=== PATIENT | female | born 1985 | race Hispanic/Latino ===

== ENCOUNTER 2018-04-02 09:45 | Emergency (ER) | payer OTHER, SELFPAY ==
[2018-04-02 09:45] VITALS: BP 92/50; PULSE 60; RESP 29; O2SAT 98
--- NOTE | 2018-04-02 09:49 | DI.RAD.S_ITS ---
PROCEDURE: XR CHEST 2V INDICATIONS: Shortness of breath TECHNIQUE: 2 views of the chest were acquired. COMPARISON: None. FINDINGS: Surgical changes and devices: None. Lungs and pleura: No pleural effusions or pneumothorax. Lungs are clear. Mediastinum: Mediastinal contours are normal. Heart size is normal. Bones and chest wall: No suspicious bony abnormalities. Soft tissues appear unremarkable. IMPRESSION: No acute disease. Dictated by: Wilfrido Kirkland M.D. on 04/02/2018 at 10:33 Approved by: Wilfrido Kirkland M.D. on 04/02/2018 at 10:34
[2018-04-02 09:54] VITALS: BP 117/81; PULSE 84; RESP 13; TEMP 36.4; O2SAT 97
[2018-04-02 10:00] VITALS: BP 90/55; PULSE 60; RESP 24; O2SAT 98
--- NOTE | 2018-04-02 10:05 | ED.SOB ---
HPI - SOB/Dyspnea General Chief Complaint: Shortness of Breath/Dyspnea Stated Complaint: HARD TIME BREATHING FOR 1 DAY Time Seen by Provider: 04/02/18 09:49 Related Data Previous Rx's Medication Instructions Recorded fluticasone [Flovent HFA] 1 inhalation INHALATION BID #10.6 04/02/18 gram nicotine 1 patch TRANSDERMAL DAILY #7 each 04/02/18 Allergies Allergy/AdvReac Type Severity Reaction Status Date / Time ibuprofen [From Motrin] AdvReac Verified 04/02/18 10:00 Exam Initial Vital Signs Initial Vital Signs: Vital Signs Temperature 97.6 F 04/02/18 09:54 Pulse Rate 84 04/02/18 09:54 Respiratory Rate 13 04/02/18 09:54 Blood Pressure 117/81 H 04/02/18 09:54 Pulse Oximetry 97 04/02/18 09:54 Course Orders Ordered: ED Orders 04/02/18 09:49 XR chest 2V Stat Discontinued Medications Al Hydrox/Mg Hydrox/Simethicone 20 ml/ Lidocaine HCl 15 ml 0 ml PO NOW ONE Stop: 04/02/18 10:21 Last Admin: 04/02/18 10:36 Dose: 30 ml Ondansetron HCl (Zofran Odt) 4 mg PO NOW ONE Stop: 04/02/18 11:20 Last Admin: 04/02/18 11:21 Dose: 4 mg Vital Signs - 8 hr 04/02/18 09:54 04/02/18 10:39 04/02/18 11:50 Temperature 97.6 F 97.6 F Pulse Rate 84 84 83 Respiratory Rate 13 13 16 Blood Pressure 117/81 H 117/81 H Blood Pressure [Right Arm] 102/76 Pulse Oximetry 97 97 98 MDM - SOB/Dyspnea Imaging Data Chest x-ray: Radiologist's impression: PROCEDURE: XR CHEST 2V INDICATIONS: Shortness of breath TECHNIQUE: 2 views of the chest were acquired. COMPARISON: None. FINDINGS: Surgical changes and devices: None. Lungs and pleura: No pleural effusions or pneumothorax. Lungs are clear. Mediastinum: Mediastinal contours are normal. Heart size is normal. Bones and chest wall: No suspicious bony abnormalities. Soft tissues appear unremarkable. IMPRESSION: No acute disease. Dictated by: Wilfrido Kirkland M.D. on 04/02/2018 at 10:33 Discharge Plan Departure Patient Disposition: Home, Self-Care Clinical Impression: Reflux esophagitis Instructions: DI for Gastroesophageal Reflux Disease (GERD) Activity Restrictions/Additional Instructions: Recommend that you take dafw-vnp-[id number] reflux medicines such as Maalox for the next couple days. Call your primary care doctor to follow up on your nicotine patches and also the symptoms that brought you in to the department today. Return to the emergency department for any new or worsening symptoms Prescriptions: New fluticasone [Flovent HFA] 44 mcg/actuation HFA aerosol inhaler 1 inhalation INHALATION BID Qty: 10.6 RF: 0 nicotine 21 mg/24 hr patch 24 hour 1 patch Transdermal DAILY Qty: 7 RF: 0
--- NOTE | 2018-04-02 10:33 | PC.NURSE ---
Pt states she has pain in her throat that feels like a burning pain. She c/o shortness of breath, which is alleviated some by laying flat. Has hx of asthma and acid reflux. pain is 6/10. She c/o of nausea and vomiting that started last night.
[2018-04-02] MEDS: MAG HYDROX/ALUMINUM/SIMETH SUS 20 ML, LIDOCAINE VISCOUS 2% 15 ML PO (10:36)
[2018-04-02 10:39] VITALS: BP 117/81; PULSE 84; RESP 13; TEMP 36.4; O2SAT 97; BMI 19.0
[2018-04-02] MEDS: ONDANSETRON 4 MG ODT PO (11:21)
[2018-04-02 11:30] VITALS: BP 90/49; PULSE 60; RESP 21; O2SAT 95
[2018-04-02 11:50] VITALS: BP 102/76; PULSE 83; RESP 16; O2SAT 98
[2018-04-02 12:24] LABS: Bacteria Urine Moderate (10-30); Culture Indicated Urine Cult Not Indicated; Mucus Urine 3+ (Negative); RBC Urine 1-5/HPF (0-5/HPF); Squamous Epithelial Cell Urine 5-10 /HPF; WBC Urine 1-5/HPF (0-5/HPF)
== END 2018-04-02 12:21 | disposition home or self-care (01) ==
PROVIDERS: Emergency Provider Emergency Medicine
DX: K21.0 Gastro-esophageal reflux disease with esophagitis (principal)
CPT/HCPCS: 71046; 81003; 81015; 81025; 93005; 99283; 99285

== ENCOUNTER 2019-01-03 15:25 | Emergency (ER) | payer OTHER, MEDICAID, SELFPAY ==
[2019-01-03 15:27] VITALS: BP 113/81; PULSE 99; RESP 20; TEMP 36.8; O2SAT 99
--- NOTE | 2019-01-03 16:22 | ED.DIZZY ---
HPI - Dizziness <Anastasiia Mathew PA-C - Last Filed: 01/03/19 21:36> General Chief Complaint: Syncope Stated Complaint: VOMITING Time Seen by Provider: 01/03/19 16:00 Source: patient Mode of arrival: ambulatory Limitations: no limitations History of Present Illness HPI Narrative: This 33-year-old female comes in due to syncopal episode earlier. She states that she was feeling nauseated and vomited twice this morning, then had been getting some things off of shelves and feeling a spinning sensation with head movements prior to this happening. She felt a spinning and nausea and warm feeling like she would pass out, so sat down on her bed and states that she was out maybe for about 15 seconds, then her daughter was calling her. She states she felt some palpitations just prior when she had the spinning sensation, otherwise has not had any chest pain, palpitations or dizziness. She states that she could be , as her last regular period was over about the 18 of November, and then she had some spotting around December 19. She has a Mirena IUD in place however. She did have similar spotting with previous pregnancies along with similar nausea. She also has a history of pots syndrome, states that occasionally needs IV fluids, thinks it has been about 6 months since she has needed an IV but did more frequently when she was previously. She states she has not had any asthma exacerbation recently, no recent illness, upper respiratory symptoms, ear or sinus symptoms. She has not had fever. She states she has maybe had a little bit of mild abdominal pain, no urinary symptoms. she denies any new pain or swelling in her extremities. she denies any other new complaints on systems review, feeling better now but does feel like she needs fluids. States that she did have anemia with Ava as well as low potassium Related Data Previous Rx's Medication Instructions Recorded fluticasone propionate [Flovent 1 inhalation INHALATION BID #10.6 04/02/18 HFA] gram ondansetron 4 mg PO Q8H #10 tab 01/03/19 Allergies Allergy/AdvReac Type Severity Reaction Status Date / Time ibuprofen [From Motrin] AdvReac Verified 04/02/18 10:00 Review of Systems <Anastasiia Mathew PA-C - Last Filed: 01/03/19 21:36> Review of Systems ROS Unobtainable: All systems reviewed & are unremarkable except as noted in HPI and below PFSH <Anastasiia Mathew PA-C - Last Filed: 01/03/19 21:36> Medical History (Updated 01/03/19 @ 18:58 by Anastasiia Mathew PA-C) Asthma (Chronic) POTS (postural orthostatic tachycardia syndrome) (Chronic) Surgical History (Updated 01/03/19 @ 16:50 by Anastasiia Mathew PA-C) Status post appendectomy (Resolved) Status post cholecystectomy (Resolved) Social History (Updated 01/03/19 @ 16:50 by Anastasiia Mathew PA-C) Smoking Status: Former smoker Social History (Updated 01/03/19 @ 16:50 by Anastasiia Mathew PA-C) Smoking Status: Former smoker Exam <Anastasiia Mathew PA-C - Last Filed: 01/03/19 21:36> Narrative Exam Narrative: GENERAL APPEARANCE: Patient sitting comfortably, in no distress. HEENT: PERRL, EOMI, left TM intact with normal light reflex, right is occluded by cerumen, normal oropharynx NECK: Supple, no masses LUNGS: Clear to auscultation bilaterally. HEART: Rate and rhythm regular, normal S1 and S2, no S3 or S4. ABDOMEN: Soft, minimal generalized tenderness without guarding or rebound, nondistended, bowel sounds present x 4 quadrants, no masses palpable EXTREMITIES: No edema, no calf tenderness NEUROLOGIC: Alert and oriented, normal speech and coordination, able to reproduce symptoms somewhat with Hallpike maneuver NEUROLOGIC: Alert and oriented with normal speech and coordination Initial Vital Signs Initial Vital Signs: Vital Signs Temperature 98.2 F 01/03/19 15:27 Pulse Rate 99 H 01/03/19 15:27 Respiratory Rate 20 01/03/19 15:27 Blood Pressure 113/81 01/03/19 15:27 Pulse Oximetry 99 01/03/19 15:27 <Madiha Hurtado DO - Last Filed: 01/06/19 20:45> Initial Vital Signs Initial Vital Signs: Vital Signs Temperature 98.2 F 01/03/19 15:27 Pulse Rate 99 H 01/03/19 15:27 Respiratory Rate 20 01/03/19 15:27 Blood Pressure 113/81 01/03/19 15:27 Pulse Oximetry 99 01/03/19 15:27 Course <Anastasiia Mathew PA-C - Last Filed: 01/03/19 21:36> Additional Information: Patient is feeling well after fluids and Zofran, no difficulty tolerating position changes. She feels this is typical nausea of her exacerbated by pots syndrome, no new or atypical sx today Orders Ordered: Discontinued Medications Sodium Chloride (Normal Saline 0.9%) 1,000 mls @ 1,000 mls/hr IV BOLUS ONE Stop: 01/03/19 17:37 Last Infusion: 01/03/19 18:34 Dose: 0 mls/hr Infusion: 01/03/19 17:39 Dose: 1,000 mls/hr Infusion: 01/03/19 17:24 Dose: 0 mls/hr Admin: 01/03/19 16:49 Dose: 1,000 mls/hr Ondansetron HCl (Zofran) 4 mg IV NOW ONE Stop: 01/03/19 16:39 Last Admin: 01/03/19 16:49 Dose: 4 mg Vital Signs - 8 hr 01/03/19 15:27 01/03/19 18:33 Temperature 98.2 F Pulse Rate 99 H 98 H Respiratory Rate 20 17 Blood Pressure 113/81 Blood Pressure [Right Arm] 123/80 Pulse Oximetry 99 95 <Madiha Hurtado DO - Last Filed: 01/06/19 20:45> Orders Ordered: Discontinued Medications Sodium Chloride (Normal Saline 0.9%) 1,000 mls @ 1,000 mls/hr IV BOLUS ONE Stop: 01/03/19 17:37 Last Infusion: 01/03/19 18:34 Dose: 0 mls/hr Infusion: 01/03/19 17:39 Dose: 1,000 mls/hr Infusion: 01/03/19 17:24 Dose: 0 mls/hr Admin: 01/03/19 16:49 Dose: 1,000 mls/hr Ondansetron HCl (Zofran) 4 mg IV NOW ONE Stop: 01/03/19 16:39 Last Admin: 01/03/19 16:49 Dose: 4 mg Vital Signs - 8 hr 01/03/19 15:27 01/03/19 18:33 Temperature 98.2 F Pulse Rate 99 H 98 H Respiratory Rate 20 17 Blood Pressure 113/81 Blood Pressure [Right Arm] 123/80 Pulse Oximetry 99 95 MDM - Dizziness <Anastasiia Mathew PA-C - Last Filed: 01/03/19 21:36> Lab Data Attestation: I reviewed the patient's lab results. Result diagrams: 01/03/19 16:45 01/03/19 16:45 Lab Results 01/03/19 01/03/19 Range/Units 16:45 16:45 WBC 8.3 (4.5-11.0) X10^3/uL RBC 4.91 (4.0-5.2) X10^6/uL Hgb 15.3 (12.0-16.0) g/dL Hct 43.7 (36-46) % MCV 89.0 (80-100) fL MCH 31.1 (26-34) PG MCHC 35.0 (30-36) % RDW 12.3 (11.6-14.8) % Plt Count 233 (150-400) X10^3/uL Neut % (Auto) 64.0 (50-75) % Lymph % (Auto) 27.6 (25-40) % [place] % (Auto) 5.8 (3-14) % Eos % (Auto) 1.8 L (2-4) % Baso % (Auto) 0.8 (0-2) % Neut # (Auto) 5300 (0555-7523) /uL Lymph # (Auto) 2300 (4860-5807) /uL [place] # (Auto) 500 (0-900) /uL Eos # (Auto) 100 (0-450) /uL Baso # (Auto) 100 (0-100) /uL Sodium 136 L (137-145) mmol/L Potassium 4.2 (3.4-5.1) mmol/L Chloride 104 (98-107) mmol/L Carbon Dioxide 21 L (22-32) mmol/L BUN 9 (7-17) mg/dL Creatinine 0.50 L (0.52-1.04) mg/dL Estimated GFR > 60.0 (>60) mL/min BUN/Creatinine Ratio 18.0 (6-22) Glucose 108 H (70-100) mg/dL Calcium 9.3 (8.4-10.2) mg/dL Magnesium 2.0 (1.6-2.3) mg/dL Total Bilirubin 1.1 (0.2-1.3) mg/dL AST 34 (14-36) IU/L ALT 43 (9-52) IU/L Alkaline Phosphatase 43 (38-126) U/L Total Protein 7.6 (6.3-8.2) g/dL Albumin 4.8 (3.5-5.0) g/dL Globulin 2.8 (1.7-4.1) g/dL Albumin/Globulin Ratio 1.7 (1.0-2.8) HCG, Quant 35313 mIU/mL Point of Care Testing Test Results Positive Imaging Data US : Radiologist's impression: 23 Anastasiia Mathew PA-C Find Patient Imaging Marcelina Bella 33 F 1985 ACTIVITY DATE EXAM STATUS AUTHOR 01/03/19 16:38 Signed Laz Bruno ORDER STATUS ORDER START ORDER DETAIL US OB limited Cancelled 01/03/19 16:[address] [address] Ultrasound Report Signed Patient: Marcelina Bella CMR#: [id number] : 1985Acct:[id number] Age/Sex: te of Service: 01/03/19 Loc: ED Accession Number: [id number] Procedure: US OB <= 14 weeks fetus Ordering Provider: Anastasiia Mathew P.A-C PROCEDURE: US OB <= 14 WEEKS FETUS INDICATIONS: POSITIVE TEST, SYNCOPE, INTRAUTERINE DEVICE PLACED OUTSIDE/PRIOR DATING DATA: Last menstrual period (LMP): Unknown. LMP-based estimated date of delivery (RADHA): Cannot be calculated. First dating scan (date and location): [facility], 01/03/19. Estimated date of delivery (RADHA) from first dating scan: 08/31/19. TECHNIQUE: Real-time scanning was performed of the fetus and maternal pelvic organs, with image documentation. Endovaginal scanning was also performed to better visualize the fetus and maternal ovaries. COMPARISON: None. FINDINGS: Embryo: There is an intrauterine gestational sac with a mean gestational sac diameter 1.6 cm, for a calculated gestational age of 6 weeks 0 days. A yolk sac is identified, and measures 4 mm in diameter. [place]-rump length/ pole length measures 0.3 cm for a calculated gestational age of 5 weeks 5 days. No heart tones can be measured, which may be normal at this stage of early . Measurement variability in dating: +/- 4 weeks by LMP, +/- 7 days by mean sac diameter (use before 6 weeks gestation if crown-rump length not able to be measured), +/- 5 days by crown-rump length (up to 8 weeks 6 days gestation), +/- 7 days by crown-rump length (up to 13 weeks 6 days gestation). Maternal organs: Limited images through the kidneys demonstrate no hydronephrosis. Right ovary measures 2.7 x 1.7 x 1.1 cm left ovary measures 4.0 x 2.9 x 2.7 cm. There is a 2.6 x 2.3 x 2.1 cm probable corpus luteum cyst in the left ovary with peripheral vascularity on Doppler ultrasound. The uterus measures 6.1 x 9.1 x 5.4 cm. No intrauterine device can be convincingly identified on this exam. IMPRESSION: 1. Intrauterine gestation with calculated gestational age of 5 weeks 5 days. No heart tones are identified on this exam, but this may be normal at this early stage of . Recommend clinical followup with serial beta-hCG levels and followup pelvic ultrasounds. 2. Patient reports a history of prior intrauterine device placement, but no intrauterine device can be convincingly identified on this exam by ultrasound. Recommend clinical correlation for further evaluation and management. Dictated by: Laz Bruno M.D. on 01/03/2019 at 17:50 Approved by: Laz Bruno M.D. on 01/03/2019 at 18:01 ECG Data Attestation: I personally reviewed and interpreted this ECG as follows: (Normal sinus rhythm with rate 88, normal axis) <Madiha Hurtado, DO - Last Filed: 01/06/19 20:45> Lab Data Lab Results 01/03/19 01/03/19 Range/Units 16:45 16:45 WBC 8.3 (4.5-11.0) X10^3/uL RBC 4.91 (4.0-5.2) X10^6/uL Hgb 15.3 (12.0-16.0) g/dL Hct 43.7 (36-46) % MCV 89.0 (80-100) fL MCH 31.1 (26-34) PG MCHC 35.0 (30-36) % RDW 12.3 (11.6-14.8) % Plt Count 233 (150-400) X10^3/uL Neut % (Auto) 64.0 (50-75) % Lymph % (Auto) 27.6 (25-40) % [place] % (Auto) 5.8 (3-14) % Eos % (Auto) 1.8 L (2-4) % Baso % (Auto) 0.8 (0-2) % Neut # (Auto) 5300 (1129-1160) /uL Lymph # (Auto) 2300 (5372-2425) /uL [place] # (Auto) 500 (0-900) /uL Eos # (Auto) 100 (0-450) /uL Baso # (Auto) 100 (0-100) /uL Sodium 136 L (137-145) mmol/L Potassium 4.2 (3.4-5.1) mmol/L Chloride 104 (98-107) mmol/L Carbon Dioxide 21 L (22-32) mmol/L BUN 9 (7-17) mg/dL Creatinine 0.50 L (0.52-1.04) mg/dL Estimated GFR > 60.0 (>60) mL/min BUN/Creatinine Ratio 18.0 (6-22) Glucose 108 H (70-100) mg/dL Calcium 9.3 (8.4-10.2) mg/dL Magnesium 2.0 (1.6-2.3) mg/dL Total Bilirubin 1.1 (0.2-1.3) mg/dL AST 34 (14-36) IU/L ALT 43 (9-52) IU/L Alkaline Phosphatase 43 (38-126) U/L Total Protein 7.6 (6.3-8.2) g/dL Albumin 4.8 (3.5-5.0) g/dL Globulin 2.8 (1.7-4.1) g/dL Albumin/Globulin Ratio 1.7 (1.0-2.8) HCG, Quant 59337 mIU/mL Point of Care Testing Test Results Positive Discharge Plan Departure Patient Disposition: Home Clinical Impression: Syncope due to orthostatic hypotension, Vomiting during Discharge Date/Time: 01/03/19 19:11 Interventions: ED Discharge Assessment Last Done: 01/03/19 19:03 Instructions: DI for Syncope in Adults (Fainting), DI for Syncope in Children (Fainting) Activity Restrictions/Additional Instructions: Please garbage pick up worker the Zofran tomorrow morning to help with your nausea and vomiting. I think your dizziness and passing out were due to your pots syndrome along with the nausea and vomiting from . Your ultrasound report and blood work looked like you are about 5-1/2 weeks , that is consistent with your last ?normal? menses. Your IUD was not visible on the ultrasound today. Sometimes they do come out. Please set up a follow-up with your PCP in the next few days as well as set up with OBGYN. Please return to the ED if you are feeling acutely worse again or have any new symptoms such as chest pain. please drink plenty of clear fluids and start your vitamins. Prescriptions: New ondansetron 4 mg tablet,disintegrating 4 mg PO Q8H Qty: 10 RF: 0 No Action fluticasone propionate [Flovent HFA] 44 mcg/actuation HFA aerosol inhaler 1 inhalation INHALATION BID Qty: 10.6 RF: 0 Referrals: [facility] [Other] <Madiha Hurtado DO - Last Filed: 01/06/19 20:45> Cosign ED Attending Cosignature Attestation: I was immediately available in the department for consultation. This documentation has been reviewed and I agree with assessment and plan. Supervised by Madiha Hurtado DO
--- NOTE | 2019-01-03 16:38 | DI.US.S_ITS ---
PROCEDURE: US OB <= 14 WEEKS FETUS INDICATIONS: POSITIVE TEST, SYNCOPE, INTRAUTERINE DEVICE PLACED OUTSIDE/PRIOR DATING DATA: Last menstrual period (LMP): Unknown. LMP-based estimated date of delivery (RADHA): Cannot be calculated. First dating scan (date and location): [facility], 01/03/19. Estimated date of delivery (RADHA) from first dating scan: 08/31/19. TECHNIQUE: Real-time scanning was performed of the fetus and maternal pelvic organs, with image documentation. Endovaginal scanning was also performed to better visualize the fetus and maternal ovaries. COMPARISON: None. FINDINGS: Embryo: There is an intrauterine gestational sac with a mean gestational sac diameter 1.6 cm, for a calculated gestational age of 6 weeks 0 days. A yolk sac is identified, and measures 4 mm in diameter. [place]-rump length/ pole length measures 0.3 cm for a calculated gestational age of 5 weeks 5 days. No heart tones can be measured, which may be normal at this stage of early . Measurement variability in dating: +/- 4 weeks by LMP, +/- 7 days by mean sac diameter (use before 6 weeks gestation if crown-rump length not able to be measured), +/- 5 days by crown-rump length (up to 8 weeks 6 days gestation), +/- 7 days by crown-rump length (up to 13 weeks 6 days gestation). Maternal organs: Limited images through the kidneys demonstrate no hydronephrosis. Right ovary measures 2.7 x 1.7 x 1.1 cm left ovary measures 4.0 x 2.9 x 2.7 cm. There is a 2.6 x 2.3 x 2.1 cm probable corpus luteum cyst in the left ovary with peripheral vascularity on Doppler ultrasound. The uterus measures 6.1 x 9.1 x 5.4 cm. No intrauterine device can be convincingly identified on this exam. IMPRESSION: 1. Intrauterine gestation with calculated gestational age of 5 weeks 5 days. No heart tones are identified on this exam, but this may be normal at this early stage of . Recommend clinical followup with serial beta-hCG levels and followup pelvic ultrasounds. 2. Patient reports a history of prior intrauterine device placement, but no intrauterine device can be convincingly identified on this exam by ultrasound. Recommend clinical correlation for further evaluation and management. Dictated by: Laz Bruno M.D. on 01/03/2019 at 17:50 Approved by: Laz Bruno M.D. on 01/03/2019 at 18:01
[2019-01-03] MEDS: ONDANSETRON 4 MG/2 ML INJ IV (16:49)
[2019-01-03] MEDS: SODIUM CHLORIDE 0.9% 1,000 ML 1000 ML IV (16:49)
[2019-01-03 16:51] LABS: Add Manual Diff / Slide Review NO; Basophils Absolute Auto 100 /uL (0-100); Basophils Percent Auto 0.8 % (0-2); Eosinophils Absolute Auto 100 /uL (0-450); Eosinophils Percent Auto 1.8 % (2-4); Hematocrit 43.7 % (36-46); Hemoglobin 15.3 g/dL (12.0-16.0); Lymphocytes Absolute Auto 2300 /uL (1100-4500); Lymphocytes Percent Auto 27.6 % (25-40); Mean Corpuscular Hemoglobin 31.1 PG (26-34); Monocytes Absolute Auto 500 /uL (0-900); Monocytes Percent Auto 5.8 % (3-14); Neutrophils Absolute Auto 5300 /uL (1500-7000); Platelet Count 233 X10^3/uL (150-400); Red Blood Cell Count 4.91 X10^6/uL (4.0-5.2); Red Cell Distribution Width 12.3 % (11.6-14.8); White Blood Cell Count 8.3 X10^3/uL (4.5-11.0)
--- NOTE | 2019-01-03 16:52 | ED_ITS ---
HPI - Dizziness <Anastasiia Mathew PA-C - Last Filed: 01/03/19 21:36> General Chief Complaint: Syncope Stated Complaint: VOMITING Time Seen by Provider: 01/03/19 16:00 Source: patient Mode of arrival: ambulatory Limitations: no limitations History of Present Illness HPI Narrative: This 33-year-old female comes in due to syncopal episode earlier. She states that she was feeling nauseated and vomited twice this morning, then had been getting some things off of shelves and feeling a spinning sensation with head movements prior to this happening. She felt a spinning and nausea and warm feeling like she would pass out, so sat down on her bed and states that she was out maybe for about 15 seconds, then her daughter was calling her. She states she felt some palpitations just prior when she had the spinning sensation, otherwise has not had any chest pain, palpitations or dizziness. She states that she could be , as her last regular period was over about the 18 of November, and then she had some spotting around December 19. She has a Mirena IUD in place however. She did have similar spotting with previous pregnancies along with similar nausea. She also has a history of pots syndrome, states that occasionally needs IV fluids, thinks it has been about 6 months since she has needed an IV but did more frequently when she was previously. She states she has not had any asthma exacerbation recently, no recent illness, upper respiratory symptoms, ear or sinus symptoms. She has not had fever. She states she has maybe had a little bit of mild abdominal pain, no urinary symptoms. she denies any new pain or swelling in her extremities. she denies any other new complaints on systems review, feeling better now but does feel like she needs fluids. States that she did have anemia with Ava as well as low potassium Related Data Previous Rx's Medication Instructions Recorded fluticasone propionate [Flovent 1 inhalation INHALATION BID #10.6 04/02/18 HFA] gram ondansetron 4 mg PO Q8H #10 tab 01/03/19 Allergies Allergy/AdvReac Type Severity Reaction Status Date / Time ibuprofen [From Motrin] AdvReac Verified 04/02/18 10:00 Review of Systems <Anastasiia Mathew PA-C - Last Filed: 01/03/19 21:36> Review of Systems ROS Unobtainable: All systems reviewed & are unremarkable except as noted in HPI and below PFSH <nAastasiia Mathew PA-C - Last Filed: 01/03/19 21:36> Medical History (Updated 01/03/19 @ 18:58 by Anastasiia Mathew PA-C) Asthma (Chronic) POTS (postural orthostatic tachycardia syndrome) (Chronic) Surgical History (Updated 01/03/19 @ 16:50 by Anastasiia Mathew PA-C) Status post appendectomy (Resolved) Status post cholecystectomy (Resolved) Social History (Updated 01/03/19 @ 16:50 by Anastasiia Mathew PA-C) Smoking Status: Former smoker Social History (Updated 01/03/19 @ 16:50 by Anastasiia Mathew PA-C) Smoking Status: Former smoker Exam <Anastasiia Mathew PA-C - Last Filed: 01/03/19 21:36> Narrative Exam Narrative: GENERAL APPEARANCE: Patient sitting comfortably, in no distress. HEENT: PERRL, EOMI, left TM intact with normal light reflex, right is occluded by cerumen, normal oropharynx NECK: Supple, no masses LUNGS: Clear to auscultation bilaterally. HEART: Rate and rhythm regular, normal S1 and S2, no S3 or S4. ABDOMEN: Soft, minimal generalized tenderness without guarding or rebound, nondistended, bowel sounds present x 4 quadrants, no masses palpable EXTREMITIES: No edema, no calf tenderness NEUROLOGIC: Alert and oriented, normal speech and coordination, able to reproduce symptoms somewhat with Hallpike maneuver NEUROLOGIC: Alert and oriented with normal speech and coordination Initial Vital Signs Initial Vital Signs: Vital Signs Temperature 98.2 F 01/03/19 15:27 Pulse Rate 99 H 01/03/19 15:27 Respiratory Rate 20 01/03/19 15:27 Blood Pressure 113/81 01/03/19 15:27 Pulse Oximetry 99 01/03/19 15:27 <Madiha Hurtado DO - Last Filed: 01/06/19 20:45> Initial Vital Signs Initial Vital Signs: Vital Signs Temperature 98.2 F 01/03/19 15:27 Pulse Rate 99 H 01/03/19 15:27 Respiratory Rate 20 01/03/19 15:27 Blood Pressure 113/81 01/03/19 15:27 Pulse Oximetry 99 01/03/19 15:27 Course <Anastasiia Mathew PA-C - Last Filed: 01/03/19 21:36> Additional Information: Patient is feeling well after fluids and Zofran, no difficulty tolerating position changes. She feels this is typical nausea of her exacerbated by pots syndrome, no new or atypical sx today Orders Ordered: Discontinued Medications Sodium Chloride (Normal Saline 0.9%) 1,000 mls @ 1,000 mls/hr IV BOLUS ONE Stop: 01/03/19 17:37 Last Infusion: 01/03/19 18:34 Dose: 0 mls/hr Infusion: 01/03/19 17:39 Dose: 1,000 mls/hr Infusion: 01/03/19 17:24 Dose: 0 mls/hr Admin: 01/03/19 16:49 Dose: 1,000 mls/hr Ondansetron HCl (Zofran) 4 mg IV NOW ONE Stop: 01/03/19 16:39 Last Admin: 01/03/19 16:49 Dose: 4 mg Vital Signs - 8 hr 01/03/19 15:27 01/03/19 18:33 Temperature 98.2 F Pulse Rate 99 H 98 H Respiratory Rate 20 17 Blood Pressure 113/81 Blood Pressure [Right Arm] 123/80 Pulse Oximetry 99 95 <Madiha Hurtado DO - Last Filed: 01/06/19 20:45> Orders Ordered: Discontinued Medications Sodium Chloride (Normal Saline 0.9%) 1,000 mls @ 1,000 mls/hr IV BOLUS ONE Stop: 01/03/19 17:37 Last Infusion: 01/03/19 18:34 Dose: 0 mls/hr Infusion: 01/03/19 17:39 Dose: 1,000 mls/hr Infusion: 01/03/19 17:24 Dose: 0 mls/hr Admin: 01/03/19 16:49 Dose: 1,000 mls/hr Ondansetron HCl (Zofran) 4 mg IV NOW ONE Stop: 01/03/19 16:39 Last Admin: 01/03/19 16:49 Dose: 4 mg Vital Signs - 8 hr 01/03/19 15:27 01/03/19 18:33 Temperature 98.2 F Pulse Rate 99 H 98 H Respiratory Rate 20 17 Blood Pressure 113/81 Blood Pressure [Right Arm] 123/80 Pulse Oximetry 99 95 MDM - Dizziness <Anastasiia Mathew PA-C - Last Filed: 01/03/19 21:36> Lab Data Attestation: I reviewed the patient's lab results. Result diagrams: 01/03/19 16:45 01/03/19 16:45 Lab Results 01/03/19 01/03/19 Range/Units 16:45 16:45 WBC 8.3 (4.5-11.0) X10^3/uL RBC 4.91 (4.0-5.2) X10^6/uL Hgb 15.3 (12.0-16.0) g/dL Hct 43.7 (36-46) % MCV 89.0 (80-100) fL MCH 31.1 (26-34) PG MCHC 35.0 (30-36) % RDW 12.3 (11.6-14.8) % Plt Count 233 (150-400) X10^3/uL Neut % (Auto) 64.0 (50-75) % Lymph % (Auto) 27.6 (25-40) % [place] % (Auto) 5.8 (3-14) % Eos % (Auto) 1.8 L (2-4) % Baso % (Auto) 0.8 (0-2) % Neut # (Auto) 5300 (5355-3737) /uL Lymph # (Auto) 2300 (7776-5742) /uL [place] # (Auto) 500 (0-900) /uL Eos # (Auto) 100 (0-450) /uL Baso # (Auto) 100 (0-100) /uL Sodium 136 L (137-145) mmol/L Potassium 4.2 (3.4-5.1) mmol/L Chloride 104 (98-107) mmol/L Carbon Dioxide 21 L (22-32) mmol/L BUN 9 (7-17) mg/dL Creatinine 0.50 L (0.52-1.04) mg/dL Estimated GFR > 60.0 (>60) mL/min BUN/Creatinine Ratio 18.0 (6-22) Glucose 108 H (70-100) mg/dL Calcium 9.3 (8.4-10.2) mg/dL Magnesium 2.0 (1.6-2.3) mg/dL Total Bilirubin 1.1 (0.2-1.3) mg/dL AST 34 (14-36) IU/L ALT 43 (9-52) IU/L Alkaline Phosphatase 43 (38-126) U/L Total Protein 7.6 (6.3-8.2) g/dL Albumin 4.8 (3.5-5.0) g/dL Globulin 2.8 (1.7-4.1) g/dL Albumin/Globulin Ratio 1.7 (1.0-2.8) HCG, Quant 56966 mIU/mL Point of Care Testing Test Results Positive Imaging Data US : Radiologist's impression: 23 Anastasiia Mathew PA-C Find Patient Imaging Marcelina Bella 33 F 1985 ACTIVITY DATE EXAM STATUS AUTHOR 01/03/19 16:38 Signed Laz Bruno ORDER STATUS ORDER START ORDER DETAIL US OB limited Cancelled 01/03/19 16:[address] [address] Ultrasound Report Signed Patient: Marcelina Bella CMR#: [id number] : 1985Acct:[id number] Age/Sex: te of Service: 01/03/19 Loc: ED Accession Number: [id number] Procedure: US OB <= 14 weeks fetus Ordering Provider: Anastasiia Mathew P.A-C PROCEDURE: US OB <= 14 WEEKS FETUS INDICATIONS: POSITIVE TEST, SYNCOPE, INTRAUTERINE DEVICE PLACED OUTSIDE/PRIOR DATING DATA: Last menstrual period (LMP): Unknown. LMP-based estimated date of delivery (RADHA): Cannot be calculated. First dating scan (date and location): [facility], 01/03/19. Estimated date of delivery (RADHA) from first dating scan: 08/31/19. TECHNIQUE: Real-time scanning was performed of the fetus and maternal pelvic organs, with image documentation. Endovaginal scanning was also performed to better visualize the fetus and maternal ovaries. COMPARISON: None. FINDINGS: Embryo: There is an intrauterine gestational sac with a mean gestational sac diameter 1.6 cm, for a calculated gestational age of 6 weeks 0 days. A yolk sac is identif ied, and measures 4 mm in diameter. [place]-rump length/ pole length measures 0.3 cm for a calculated gestational age of 5 weeks 5 days. No heart tones can be measured, which may be normal at this stage of early . Measurement variability in dating: +/- 4 weeks by LMP, +/- 7 days by mean sac diameter (use before 6 weeks gestation if crown-rump length not able to be measured), +/- 5 days by crown-rump length (up to 8 weeks 6 days gestation), +/- 7 days by crown-rump length (up to 13 weeks 6 days gestation). Maternal organs: Limited images through the kidneys demonstrate no hydronephrosis. Right ovary measures 2.7 x 1.7 x 1.1 cm left ovary measures 4.0 x 2.9 x 2.7 cm. There is a 2.6 x 2.3 x 2.1 cm probable corpus luteum cyst in the left ovary with peripheral vascularity on Doppler ultrasound. The uterus measures 6.1 x 9.1 x 5.4 cm. No intrauterine device can be convincingly identified on this exam. IMPRESSION: 1. Intrauterine gestation with calculated gestational age of 5 weeks 5 days. No heart tones are identified on this exam, but this may be normal at this early stage of . Recommend clinical followup with serial beta-hCG levels and followup pelvic ultrasounds. 2. Patient reports a history of prior intrauterine device placement, but no intrauterine device can be convincingly identified on this exam by ultrasound. Recommend clinical correlation for further evaluation and management. Dictated by: Laz Bruno M.D. on 01/03/2019 at 17:50 Approved by: Laz Bruno M.D. on 01/03/2019 at 18:01 ECG Data Attestation: I personally reviewed and interpreted this ECG as follows: (Normal sinus rhythm with rate 88, normal axis) <Madiha Hurtado, DO - Last Filed: 01/06/19 20:45> Lab Data Lab Results 01/03/19 01/03/19 Range/Units 16:45 16:45 WBC 8.3 (4.5-11.0) X10^3/uL RBC 4.91 (4.0-5.2) X10^6/uL Hgb 15.3 (12.0-16.0) g/dL Hct 43.7 (36-46) % MCV 89.0 (80-100) fL MCH 31.1 (26-34) PG MCHC 35.0 (30-36) % RDW 12.3 (11.6-14.8) % Plt Count 233 (150-400) X10^3/uL Neut % (Auto) 64.0 (50-75) % Lymph % (Auto) 27.6 (25-40) % [place] % (Auto) 5.8 (3-14) % Eos % (Auto) 1.8 L (2-4) % Baso % (Auto) 0.8 (0-2) % Neut # (Auto) 5300 (8193-9832) /uL Lymph # (Auto) 2300 (2682-2647) /uL [place] # (Auto) 500 (0-900) /uL Eos # (Auto) 100 (0-450) /uL Baso # (Auto) 100 (0-100) /uL Sodium 136 L (137-145) mmol/L Potassium 4.2 (3.4-5.1) mmol/L Chloride 104 (98-107) mmol/L Carbon Dioxide 21 L (22-32) mmol/L BUN 9 (7-17) mg/dL Creatinine 0.50 L (0.52-1.04) mg/dL Estimated GFR > 60.0 (>60) mL/min BUN/Creatinine Ratio 18.0 (6-22) Glucose 108 H (70-100) mg/dL Calcium 9.3 (8.4-10.2) mg/dL Magnesium 2.0 (1.6-2.3) mg/dL Total Bilirubin 1.1 (0.2-1.3) mg/dL AST 34 (14-36) IU/L ALT 43 (9-52) IU/L Alkaline Phosphatase 43 (38-126) U/L Total Protein 7.6 (6.3-8.2) g/dL Albumin 4.8 (3.5-5.0) g/dL Globulin 2.8 (1.7-4.1) g/dL Albumin/Globulin Ratio 1.7 (1.0-2.8) HCG, Quant 26642 mIU/mL Point of Care Testing Test Results Positive Discharge Plan Departure Patient Disposition: Home Clinical Impression: Syncope due to orthostatic hypotension, Vomiting during Discharge Date/Time: 01/03/19 19:11 Interventions: ED Discharge Assessment Last Done: 01/03/19 19:03 Instructions: DI for Syncope in Adults (Fainting), DI for Syncope in Children (Fainting) Activity Restrictions/Additional Instructions: Please fruit picker the Zofran tomorrow morning to help with your nausea and vomiting. I think your dizziness and passing out were due to your pots syndrome along with the nausea and vomiting from . Your ultrasound report and blood work looked like you are about 5-1/2 weeks , that is consistent with your last ?normal? menses. Your IUD was not visible on the ultrasound today. Sometimes they do come out. Please set up a follow-up with your PCP in the next few days as well as set up with OBGYN. Please return to the ED if you are feeling acutely worse again or have any new symptoms such as chest pain. pl ease drink plenty of clear fluids and start your vitamins. Prescriptions: New ondansetron 4 mg tablet,disintegrating 4 mg PO Q8H Qty: 10 RF: 0 No Action fluticasone propionate [Flovent HFA] 44 mcg/actuation HFA aerosol inhaler 1 inhalation INHALATION BID Qty: 10.6 RF: 0 Referrals: [facility] [Other] <Madiha Hurtado DO - Last Filed: 01/06/19 20:45> Cosign ED Attending Cosignature Attestation: I was immediately available in the department for consultation. This docume ntation has been reviewed and I agree with assessment and plan. Supervised by Madiha Hurtado DO
[2019-01-03 17:09] LABS: Alanine Aminotransferase 43 IU/L (9-52); Albumin 4.8 g/dL (3.5-5.0); Albumin Globulin Ratio 1.7 (1.0-2.8); Alkaline Phosphatase 43 U/L (38-126); Aspartate Aminotransferase 34 IU/L (14-36); Bilirubin Total 1.1 mg/dL (0.2-1.3); Blood Urea Nitrogen 9 mg/dL (7-17); Calcium 9.3 mg/dL (8.4-10.2); Carbon Dioxide 21 mmol/L (22-32); Chloride 104 mmol/L (98-107); Estimated Glomerular Filt Rate > 60.0 mL/min (>60); Globulin 2.8 g/dL (1.7-4.1); Glucose 108 mg/dL (70-100); HEMOLYSIS 19 (0-50); Potassium 4.2 mmol/L (3.4-5.1); Sodium 136 mmol/L (137-145); Total Protein 7.6 g/dL (6.3-8.2)
[2019-01-03 17:52] LABS: HCG Quantitative /Beta subunit 29541 mIU/mL
[2019-01-03 18:33] VITALS: BP 123/80; PULSE 98; RESP 17; O2SAT 95
== END 2019-01-03 19:11 | disposition home or self-care (01) ==
PROVIDERS: Emergency Provider Internal Medicine
DX: O21.9 Vomiting of pregnancy, unspecified (principal); I95.1 Orthostatic hypotension; Z3A.01 Less than 8 weeks gestation of pregnancy
CPT/HCPCS: 36591; 76801; 76817; 80053; 81025; 83735; 84702; 85025; 93005; 93010; 96361; 96374; 99283; 99285; J2405

== ENCOUNTER 2019-01-14 15:32 | Emergency (ER) | payer OTHER, MEDICAID, SELFPAY ==
[2019-01-14 15:35] VITALS: BP 123/90; PULSE 72; RESP 17; TEMP 36.6; O2SAT 99; BMI 19.3
--- NOTE | 2019-01-14 15:39 | ED_ITS ---
HPI - General Chief complaint: Abdominal Pain Stated complaint: abdominal pain Time Seen by Provider: 01/14/19 15:36 Source: EMS Mode of arrival: EMS Limitations: no limitations History of Present Illness HPI Narrative: Patient is a 33-year-old female who is currently 7 or 8 weeks . States that she is having abdominal pain for last 2 or 3 hours no vaginal bleeding no nausea. She actually was 01/06/2019. That was for syncopal episodes. At that time she had an ultrasound which showed that she was 5 weeks and 5 days but no heart rate was identified. She has since followed up with [facility]. However she says that she is high risk due to the cervix problem. She has had 2 miscarriages in the past. She does have 2 healthy children. She also states that she has not had a bowel movement. MD Complaint: abdominal pain Pain Consistency: intermittent Patient : Yes Related Data Previous Rx's Medication Instructions Recorded fluticasone propionate [Flovent 1 inhalation INHALATION BID #10.6 04/02/18 HFA] gram Allergies Allergy/AdvReac Type Severity Reaction Status Date / Time ibuprofen [From Motrin] AdvReac Verified 04/02/18 10:00 Opioids - Morphine Analogues AdvReac Verified 01/14/19 15:55 Review of Systems Review of Systems ROS Unobtainable: All systems reviewed & are unremarkable except as noted in HPI and below Constitutional Denies chills, Denies fever(s), Denies lethargy and Denies weakness Eyes Denies change in vision, Denies eye discharge, Denies irritation and Denies loss of vision ENT Ears, Nose, Mouth, and Throat: Denies change in voice, Denies neck pain and Denies sore throat Cardiovascular Denies dyspnea and Denies dyspnea on exertion Respiratory Denies cough, Denies dyspnea, Denies dyspnea on exertion and Denies wheezing Gastrointestinal Gastrointestinal: Reports abdominal pain, Denies diarrhea and Denies nausea Genitourinary Reports as per HPI Musculoskeletal Denies neck pain Integumentary/Breasts Denies pruritus, Denies erythema, Denies rash and Denies wounds Neurologic Denies loss of vision and Denies weakness Allergic/Immunologic Denies wheezing PMFSH - Past Medical History Medical history: Reports no medical history Surgical history: Reports no surgical history Patient : Yes Exam Initial Vital Signs Initial Vital Signs: Vital Signs Temperature 97.8 F 01/14/19 15:35 Pulse Rate 72 01/14/19 15:35 Respiratory Rate 17 01/14/19 15:35 Blood Pressure 123/90 01/14/19 15:35 Pulse Oximetry 99 01/14/19 15:35 GENERAL: Well-appearing, well-nourished and in no acute distress. HEENT: Head atraumatic,EOMI, pupils reactive, face symmetric, moist mucous membranes CARDIOVASCULAR: Regular rate and rhythm without murmurs, rubs or gallops. RESPIRATORY: Breath sounds equal bilaterally, no wheezes rales or rhonchi. ABDOMEN: Soft, no right upper quadrant tenderness no flank pain no lower abdominal pain EXTREMITIES: Normal range of motion, no clubbing or edema. Neurovascularly intact NEUROLOGICAL: Alert and oriented x4.Normal gait and speech. Cranial nerves II through XII grossly intact. SKIN: Warm, dry, no laceration, no petechiae, no rashes or lesions. Course Orders Ordered: Discontinued Medications Sodium Chloride (Normal Saline 0.9%) 1,000 mls @ 1,000 mls/hr IV BOLUS ONE Stop: 01/14/19 16:45 Last Infusion: 01/14/19 17:32 Dose: 0 mls/hr Admin: 01/14/19 16:09 Dose: 1,000 mls/hr Vital Signs - 8 hr 01/14/19 15:35 01/14/19 18:06 Temperature 97.8 F Pulse Rate 72 95 H Respiratory Rate 17 16 Blood Pressure 123/90 Blood Pressure [Left Arm] 111/61 Pulse Oximetry 99 100 MDM - OB/Uterine Contractions Lab Data Attestation: I reviewed the patient's lab results. Result diagrams: 01/14/19 15:35 01/14/19 15:35 Lab Results 01/14/19 01/14/19 Range/Units 15:35 15:35 WBC 9.3 (4.5-11.0) X10^3/uL RBC 4.81 (4.0-5.2) X10^6/uL Hgb 15.1 (12.0-16.0) g/dL Hct 42.5 (36-46) % MCV 88.3 (80-100) fL MCH 31.4 (26-34) PG MCHC 35.5 (30-36) % RDW 12.5 (11.6-14.8) % Plt Count 242 (150-400) X10^3/uL Neut % (Auto) 68.1 (50-75) % Lymph % (Auto) 23.1 L (25-40) % [place] % (Auto) 6.9 (3-14) % Eos % (Auto) 1.2 L (2-4) % Baso % (Auto) 0.7 (0-2) % Neut # (Auto) 6300 (1367-8217) /uL Lymph # (Auto) 2100 (0517-9004) /uL [place] # (Auto) 600 (0-900) /uL Eos # (Auto) 100 (0-450) /uL Baso # (Auto) 100 (0-100) /uL Sodium 137 (137-145) mmol/L Potassium 3.7 (3.4-5.1) mmol/L Chloride 99 (98-107) mmol/L Carbon Dioxide 29 (22-32) mmol/L BUN 11 (7-17) mg/dL Creatinine 0.60 (0.52-1.04) mg/dL Estimated GFR > 60.0 (>60) mL/min BUN/Creatinine Ratio 18.3 (6-22) Glucose 94 (70-100) mg/dL Calcium 10.1 (8.4-10.2) mg/dL Total Bilirubin 1.0 (0.2-1.3) mg/dL AST 27 (14-36) IU/L ALT 27 (9-52) IU/L Alkaline Phosphatase 47 (38-126) U/L Total Protein 8.0 (6.3-8.2) g/dL Albumin 4.9 (3.5-5.0) g/dL Globulin 3.1 (1.7-4.1) g/dL Albumin/Globulin Ratio 1.6 (1.0-2.8) HCG, Quant 505463 mIU/mL Urine Dip Bedside Urine Glucose Negative Bedside Urine Bilirubin - Negative Bedside Urine Ketone - Negative Urine Specific [place] 1.015 Bedside Urine Occult Blood - Negative Bedside Urine pH 5.0 Bedside Urine Protein - Negative Bedside Urine Urobilinogen - Negative Bedside Urine Nitrite - Negative Bedside Urine Leukocytes - Negative Esterase Imaging Data OB <14 wks: Radiologist's impression: PROCEDURE: US OB <= 14 WEEKS FETUS INDICATIONS: PAIN OUTSIDE/PRIOR DATING DATA: Last menstrual period (LMP): Unknown. First dating scan (date and location): 01/03/19. Estimated date of delivery (RADHA) from first dating scan: 08/31/19. TECHNIQUE: Real-time scanning was performed of the fetus and maternal pelvic organs, with image documentation. Endovaginal scanning: Performed for better visualization of the fetus and maternal adnexal structures. COMPARISON: [facility], , OB <= 14 WEEKS FETUS, 01/03/2019, 16:59. FINDINGS: Embryo: There is a single intrauterine with a gestational sac, yolk sac, pole visualized. There is heart motion with a rate of 143 beats per minute. The crown-rump length measures approximately 1.1 cm corresponding to a gestational age of 7 weeks 2 days. There is a small hypoechoic region adjacent to the gestational sac suggestive of a small subchorionic hematoma. Measurement variability in dating: +/- 4 weeks by LMP, +/- 7 days by mean sac diameter (use before 6 weeks gestation if crown-rump length unable to be measured), +/- 5 days by crown-rump length (up to 8 weeks 6 days gestation), +/- 7 days by crown-rump length (up to 13 weeks 6 days gestation). Maternal organs: The right ovary was not visualized the left ovary measures approximately 3.7 x 1.8 x 2.7 cm with a corpus luteal cyst measuring up to 2.1 cm. There is patent arterial flow demonstrated within the left ovary. IMPRESSION: 1. Single living intrauterine demonstrated with calculated gestational age of 7 weeks 2 days corresponding to an estimated delivery date of 08/31/19. 2. Suspected small subchorionic hematoma. Dictated by: Yonathan Butler M.D. on 01/14/2019 at 18:55 MDM Narrative Medical decision making narrative: Patient overall is feeling a little bit better after IV fluids no sign of UTI no localization of pain. was more concerned about baby, HCG is increasing appropriately heart rate noted at 143. on ultrasound Discharge Plan Departure Patient Disposition: Home Clinical Impression: Abdominal pain affecting Discharge Date/Time: 01/14/19 18:55 Interventions: ED Discharge Assessment Last Done: 01/14/19 18:54 Instructions: DI for -- Discomforts and Remedies Activity Restrictions/Additional Instructions: *You have been diagnosed with abdominal pain with *What to do: At this time blood work and ultrasound reassuring. Recommend prune juice for constipation *Continue to take medications as directed vitamins once daily *Follow up with your primary care provider in 2-3 days *Return to ER if you should have increasing abdominal pain vaginal bleeding or any new, worsening or concerning symptoms Prescriptions: No Action fluticasone propionate [Flovent HFA] 44 mcg/actuation HFA aerosol inhaler 1 inhalation INHALATION BID Qty: 10.6 RF: 0
--- NOTE | 2019-01-14 15:47 | DI.US.S_ITS ---
PROCEDURE: US OB <= 14 WEEKS FETUS INDICATIONS: PAIN OUTSIDE/PRIOR DATING DATA: Last menstrual period (LMP): Unknown. First dating scan (date and location): 01/03/19. Estimated date of delivery (RADHA) from first dating scan: 08/31/19. TECHNIQUE: Real-time scanning was performed of the fetus and maternal pelvic organs, with image documentation. Endovaginal scanning: Performed for better visualization of the fetus and maternal adnexal structures. COMPARISON: [facility], , OB <= 14 WEEKS FETUS, 01/03/2019, 16:59. FINDINGS: Embryo: There is a single intrauterine with a gestational sac, yolk sac, pole visualized. There is heart motion with a rate of 143 beats per minute. The crown-rump length measures approximately 1.1 cm corresponding to a gestational age of 7 weeks 2 days. There is a small hypoechoic region adjacent to the gestational sac suggestive of a small subchorionic hematoma. Measurement variability in dating: +/- 4 weeks by LMP, +/- 7 days by mean sac diameter (use before 6 weeks gestation if crown-rump length unable to be measured), +/- 5 days by crown-rump length (up to 8 weeks 6 days gestation), +/- 7 days by crown-rump length (up to 13 weeks 6 days gestation). Maternal organs: The right ovary was not visualized the left ovary measures approximately 3.7 x 1.8 x 2.7 cm with a corpus luteal cyst measuring up to 2.1 cm. There is patent arterial flow demonstrated within the left ovary. IMPRESSION: 1. Single living intrauterine demonstrated with calculated gestational age of 7 weeks 2 days corresponding to an estimated delivery date of 08/31/19. 2. Suspected small subchorionic hematoma. Dictated by: Yonathan Butler M.D. on 01/14/2019 at 18:55 Approved by: Yonathan Butler M.D. on 01/14/2019 at 18:58
[2019-01-14 15:55] LABS: Add Manual Diff / Slide Review NO; Basophils Absolute Auto 100 /uL (0-100); Basophils Percent Auto 0.7 % (0-2); Eosinophils Absolute Auto 100 /uL (0-450); Eosinophils Percent Auto 1.2 % (2-4); Hematocrit 42.5 % (36-46); Hemoglobin 15.1 g/dL (12.0-16.0); Lymphocytes Absolute Auto 2100 /uL (1100-4500); Lymphocytes Percent Auto 23.1 % (25-40); Mean Corpuscular HGB Conc 35.5 % (30-36); Mean Corpuscular Hemoglobin 31.4 PG (26-34); Mean Corpuscular Volume 88.3 fL (80-100); Monocytes Absolute Auto 600 /uL (0-900); Monocytes Percent Auto 6.9 % (3-14); Neutrophils Absolute Auto 6300 /uL (1500-7000); Neutrophils Percent Auto 68.1 % (50-75); Platelet Count 242 X10^3/uL (150-400); Red Blood Cell Count 4.81 X10^6/uL (4.0-5.2); Red Cell Distribution Width 12.5 % (11.6-14.8); White Blood Cell Count 9.3 X10^3/uL (4.5-11.0)
[2019-01-14 16:01] LABS: Alanine Aminotransferase 27 IU/L (9-52); Albumin 4.9 g/dL (3.5-5.0); Albumin Globulin Ratio 1.6 (1.0-2.8); Alkaline Phosphatase 47 U/L (38-126); Aspartate Aminotransferase 27 IU/L (14-36); BUN Creatinine Ratio 18.3 (6-22); Blood Urea Nitrogen 11 mg/dL (7-17); Calcium 10.1 mg/dL (8.4-10.2); Carbon Dioxide 29 mmol/L (22-32); Chloride 99 mmol/L (98-107); Estimated Glomerular Filt Rate > 60.0 mL/min (>60); Globulin 3.1 g/dL (1.7-4.1); Glucose 94 mg/dL (70-100); HEMOLYSIS < 15 (0-50); Potassium 3.7 mmol/L (3.4-5.1); Sodium 137 mmol/L (137-145)
[2019-01-14] MEDS: SODIUM CHLORIDE 0.9% 1,000 ML 1000 ML IV (16:09)
[2019-01-14 16:42] LABS: HCG Quantitative /Beta subunit 116790 mIU/mL
[2019-01-14 18:06] VITALS: BP 111/61; PULSE 95; RESP 16; O2SAT 100
[2019-01-14 18:54] VITALS: BP 114/73; PULSE 99; RESP 18; O2SAT 99
== END 2019-01-14 18:55 | disposition home or self-care (01) ==
PROVIDERS: Emergency Provider Emergency Medicine
DX: O26.891 Other specified pregnancy related conditions, first trimester (principal); R10.9 Unspecified abdominal pain; Z3A.01 Less than 8 weeks gestation of pregnancy
CPT/HCPCS: 36415; 76801; 76817; 80053; 81003; 84702; 85025; 96360; 99283; 99284

== ENCOUNTER 2019-02-02 12:26 | Emergency (ER) | payer OTHER, MEDICAID, SELFPAY ==
--- NOTE | 2019-02-02 12:42 | ED.HA ---
HPI - Headache <Anastasiia Mathew PA-C - Last Filed: 02/02/19 17:12> General Chief Complaint: Abdominal Pain Stated Complaint: 10 weeks ,headache and belly pain Time Seen by Provider: 02/02/19 13:06 Source: patient Mode of arrival: ambulatory Limitations: no limitations History of Present Illness HPI Narrative: This 33-year-old female who is 10 weeks comes to ED secondary to headache which she has had for the last 5 or 6 days, states this is across the frontal area and also in the back of her head where her neck feels tight. She states that she has tried Tylenol a couple of times which did not help. She has been going about her usual activities, however today she has been feeling nauseated and vomited twice. She states that she had been having constipation more than usual and was drinking prune juice, but had not had a bowel movement until yesterday, and she had to strain, very hard stools with some blood. She states that she has some constant pain in the left upper quadrant and flank area that started after she was straining to stool yesterday. she denies any exacerbating or alleviating features. She denies any blood with bowel movements aside from yesterday. She denies any urinary symptoms or hematuria. She states that she had a fever yesterday, she thinks 101. She denies any fever, chills, sweats today. She denies any earache, cough, wheeze, chest pain or dyspnea. She denies any new pain or swelling in her extremities or other new complaints on systems review today. She notes that she did have a history of bleeding hemorrhoids with her last . She states that she has a history of some type of intestinal ulcer, denies gastric ulcer Related Data Previous Rx's Medication Instructions Recorded fluticasone propionate [Flovent 1 inhalation INHALATION BID #10.6 04/02/18 HFA] gram ondansetron 4 mg PO DAILY #7 tab 02/02/19 Allergies Allergy/AdvReac Type Severity Reaction Status Date / Time ibuprofen [From Motrin] AdvReac Verified 04/02/18 10:00 Opioids - Morphine Analogues AdvReac Verified 01/14/19 15:55 Review of Systems <Anastasiia Mathew PA-C - Last Filed: 02/02/19 17:12> Review of Systems ROS Unobtainable: All systems reviewed & are unremarkable except as noted in HPI and below PFSH <Anastasiia Mathew PA-C - Last Filed: 02/02/19 17:12> Medical History (Updated 02/02/19 @ 16:49 by Anastasiia Mathew PA-C) Asthma (Chronic) H/O ulcer disease (Chronic) POTS (postural orthostatic tachycardia syndrome) (Chronic) Surgical History Status post appendectomy (Resolved) Status post cholecystectomy (Resolved) Social History Smoking Status: Former smoker Social History Smoking Status: Former smoker Exam <Anastasiia Mathew PA-C - Last Filed: 02/02/19 17:12> Narrative Exam Narrative: GENERAL APPEARANCE: Patient sitting comfortably, in no distress. HEENT: PERRL, EOMI, conjunctiva pink, no scleral icterus NECK: Supple LUNGS: Clear to auscultation bilaterally. HEART: Rate and rhythm regular, normal S1 and S2, no S3 or S4. ABDOMEN: Soft, nondistended, bowel sounds present x 4 quadrants, no masses palpable, no hepatosplenomegaly. Mild left upper quadrant and CVA tenderness to palpation, no rebound or guarding, no tenderness elsewhere EXTREMITIES: No edema, no calf tenderness DERMATOLOGIC: No jaundice or exanthem NEUROLOGIC: Alert and oriented with normal speech and coordination RECTAL: No external lesions or masses, no palpable internal masses, small amount of brown stool in vault, guaiac negative Initial Vital Signs Initial Vital Signs: Vital Signs Temperature 99.0 F 02/02/19 12:50 Pulse Rate 112 H 02/02/19 12:50 Respiratory Rate 16 02/02/19 12:50 Blood Pressure 123/75 02/02/19 12:50 Pulse Oximetry 100 02/02/19 12:50 <Lashae Garsia DO - Last Filed: 02/03/19 08:27> Initial Vital Signs Initial Vital Signs: Vital Signs Temperature 99.0 F 02/02/19 12:50 Pulse Rate 112 H 02/02/19 12:50 Respiratory Rate 16 02/02/19 12:50 Blood Pressure 123/75 02/02/19 12:50 Pulse Oximetry 100 02/02/19 12:50 Course <Anastasiia Mathew PA-C - Last Filed: 02/02/19 17:12> Additional Information: Patient reports feeling significantly improved after fluids and medications. She is sitting comfortably, texting on her cell phone, walking normally. Likely mild dehydration given her history of pots syndrome and vomiting. Reviewed lab and imaging study findings, and she already has follow-up scheduled at her OB/primary care clinic on Wednesday. She agreed to return if any acutely worsening symptoms again in the interim Orders Ordered: Discontinued Medications Acetaminophen (Tylenol) 650 mg PO NOW ONE Stop: 02/02/19 13:20 Last Admin: 02/02/19 13:55 Dose: 650 mg Sodium Chloride (Normal Saline 0.9%) 500 mls @ 1,000 mls/hr IV BOLUS PRN PRN Reason: Fluid replacement Last Infusion: 02/02/19 14:42 Dose: 0 mls/hr Admin: 02/02/19 13:55 Dose: 1,000 mls/hr Sodium Chloride (Normal Saline 0.9%) 1,000 mls @ 1,000 mls/hr IV BOLUS ONE Stop: 02/02/19 14:54 Last Infusion: 02/02/19 15:53 Dose: 0 mls/hr Admin: 02/02/19 14:59 Dose: 1,000 mls/hr Ondansetron HCl (Zofran) 4 mg IV NOW ONE Stop: 02/02/19 13:19 Last Admin: 02/02/19 13:56 Dose: 4 mg Vital Signs - 8 hr 02/02/19 12:50 02/02/19 15:22 02/02/19 17:02 Temperature 99.0 F Pulse Rate 112 H 86 101 H Respiratory Rate 16 16 15 Blood Pressure 123/75 108/64 Blood Pressure [Left Arm] 106/67 Pulse Oximetry 100 99 98 <Lashae Garsia DO - Last Filed: 02/03/19 08:27> Orders Ordered: Discontinued Medications Acetaminophen (Tylenol) 650 mg PO NOW ONE Stop: 02/02/19 13:20 Last Admin: 02/02/19 13:55 Dose: 650 mg Sodium Chloride (Normal Saline 0.9%) 500 mls @ 1,000 mls/hr IV BOLUS PRN PRN Reason: Fluid replacement Last Infusion: 02/02/19 14:42 Dose: 0 mls/hr Admin: 02/02/19 13:55 Dose: 1,000 mls/hr Sodium Chloride (Normal Saline 0.9%) 1,000 mls @ 1,000 mls/hr IV BOLUS ONE Stop: 02/02/19 14:54 Last Infusion: 02/02/19 15:53 Dose: 0 mls/hr Admin: 02/02/19 14:59 Dose: 1,000 mls/hr Ondansetron HCl (Zofran) 4 mg IV NOW ONE Stop: 02/02/19 13:19 Last Admin: 02/02/19 13:56 Dose: 4 mg Vital Signs - 8 hr 02/02/19 12:50 02/02/19 15:22 02/02/19 17:02 Temperature 99.0 F Pulse Rate 112 H 86 101 H Respiratory Rate 16 16 15 Blood Pressure 123/75 108/64 Blood Pressure [Left Arm] 106/67 Pulse Oximetry 100 99 98 MDM - Headache <Anastasiia Mathew PA-C - Last Filed: 02/02/19 17:12> Lab Data Attestation: I reviewed the patient's lab results. Result diagrams: 02/02/19 13:30 02/02/19 13:30 Lab Results 02/02/19 02/02/19 Range/Units 13:30 13:30 WBC 6.7 (4.5-11.0) X10^3/uL RBC 4.26 (4.0-5.2) X10^6/uL Hgb 13.5 (12.0-16.0) g/dL Hct 37.9 (36-46) % MCV 89.1 (80-100) fL MCH 31.7 (26-34) PG MCHC 35.6 (30-36) % RDW 13.0 (11.6-14.8) % Plt Count 244 (150-400) X10^3/uL Neut % (Auto) 66.9 (50-75) % Lymph % (Auto) 24.2 L (25-40) % [place] % (Auto) 6.4 (3-14) % Eos % (Auto) 1.7 L (2-4) % Baso % (Auto) 0.8 (0-2) % Neut # (Auto) 4400 (4404-2826) /uL Lymph # (Auto) 1600 (0206-8110) /uL [place] # (Auto) 400 (0-900) /uL Eos # (Auto) 100 (0-450) /uL Baso # (Auto) 100 (0-100) /uL Sodium 138 (137-145) mmol/L Potassium 3.5 (3.4-5.1) mmol/L Chloride 103 (98-107) mmol/L Carbon Dioxide 22 (22-32) mmol/L BUN 7 (7-17) mg/dL Creatinine 0.40 L (0.52-1.04) mg/dL Estimated GFR > 60.0 (>60) mL/min BUN/Creatinine Ratio 17.5 (6-22) Glucose 95 (70-100) mg/dL Calcium 9.4 (8.4-10.2) mg/dL Total Bilirubin 1.0 (0.2-1.3) mg/dL AST 25 (14-36) IU/L ALT 12 (9-52) IU/L Alkaline Phosphatase 37 L (38-126) U/L Total Protein 7.3 (6.3-8.2) g/dL Albumin 4.4 (3.5-5.0) g/dL Globulin 2.9 (1.7-4.1) g/dL Albumin/Globulin Ratio 1.5 (1.0-2.8) Lipase 88 (23-300) U/L HCG, Quant 76224 mIU/mL Point of Care Testing Test Results Positive Urine Dip Bedside Urine Glucose Negative Bedside Urine Bilirubin - Negative Bedside Urine Ketone - Negative Urine Specific [place] 1.015 Bedside Urine Occult Blood - Negative Bedside Urine pH 7.0 Bedside Urine Protein - Negative Bedside Urine Urobilinogen - Negative Bedside Urine Nitrite - Negative Bedside Urine Leukocytes - Negative Esterase Imaging Data US - abdomen: Radiologist's impression: [address] [address] Ultrasound Report Signed Patient: Marcelina Bella CMR#: [id number] : 1985Acct:[id number] Age/Sex: te of Service: 02/02/19 Loc: ED Accession Number: [id number] Procedure: US abdomen complete Ordering Provider: Anastasiia Mathew P.A-C PROCEDURE: US ABDOMEN COMPLETE INDICATIONS: LUQ, FLANK PAIN, PG TECHNIQUE: Real-time scanning was performed of the abdominal and retroperitoneal organs, with image documentation. COMPARISON: None. FINDINGS: Liver: Liver is normal in size and homogeneous in echotexture. Gallbladder: The: Gallbladder is surgically removed. Biliary ducts: Intrahepatic bile ducts are non-dilated. Extrahepatic bile duct caliber measures 2.9 mm. Normal is 6-7 mm or less in diameter, or 10 mm or less post-cholecystectomy. Pancreas: Visualized portions of the pancreas are sonographically normal. Spleen: Spleen is normal in size and homogeneous in echotexture. Kidneys: Kidneys are normal in size and echotexture. Right kidney measures 10.6 cm long; left kidney measures 9.9 cm long. No hydronephrosis or nephrolithiasis. No solid masses. Aorta: Visualized aorta is normal in caliber at less than 3 cm. Iliacs: Proximal common iliac arteries are normal in caliber at less than 2.5 cm. IVC: Intrahepatic inferior vena cava is patent. Miscellaneous: No free abdominal fluid. There is a single living IUP with heart rate 171 bpm. IMPRESSION: 1. Cholecystectomy. 2. Otherwise normal abdominal ultrasound exam. No ultrasound findings to explain left upper quadrant and left flank pain. Dictated by: Pierre Ashby M.D. on 02/02/2019 at 15:51 Approved by: Pierre Ashby M.D. on 02/02/2019 at 15:53 <Lashae Garsia DO - Last Filed: 02/03/19 08:27> Lab Data Lab Results 02/02/19 02/02/19 Range/Units 13:30 13:30 WBC 6.7 (4.5-11.0) X10^3/uL RBC 4.26 (4.0-5.2) X10^6/uL Hgb 13.5 (12.0-16.0) g/dL Hct 37.9 (36-46) % MCV 89.1 (80-100) fL MCH 31.7 (26-34) PG MCHC 35.6 (30-36) % RDW 13.0 (11.6-14.8) % Plt Count 244 (150-400) X10^3/uL Neut % (Auto) 66.9 (50-75) % Lymph % (Auto) 24.2 L (25-40) % [place] % (Auto) 6.4 (3-14) % Eos % (Auto) 1.7 L (2-4) % Baso % (Auto) 0.8 (0-2) % Neut # (Auto) 4400 (3526-4532) /uL Lymph # (Auto) 1600 (8011-6080) /uL [place] # (Auto) 400 (0-900) /uL Eos # (Auto) 100 (0-450) /uL Baso # (Auto) 100 (0-100) /uL Sodium 138 (137-145) mmol/L Potassium 3.5 (3.4-5.1) mmol/L Chloride 103 (98-107) mmol/L Carbon Dioxide 22 (22-32) mmol/L BUN 7 (7-17) mg/dL Creatinine 0.40 L (0.52-1.04) mg/dL Estimated GFR > 60.0 (>60) mL/min BUN/Creatinine Ratio 17.5 (6-22) Glucose 95 (70-100) mg/dL Calcium 9.4 (8.4-10.2) mg/dL Total Bilirubin 1.0 (0.2-1.3) mg/dL AST 25 (14-36) IU/L ALT 12 (9-52) IU/L Alkaline Phosphatase 37 L (38-126) U/L Total Protein 7.3 (6.3-8.2) g/dL Albumin 4.4 (3.5-5.0) g/dL Globulin 2.9 (1.7-4.1) g/dL Albumin/Globulin Ratio 1.5 (1.0-2.8) Lipase 88 (23-300) U/L HCG, Quant 13264 mIU/mL Point of Care Testing Test Results Positive Urine Dip Bedside Urine Glucose Negative Bedside Urine Bilirubin - Negative Bedside Urine Ketone - Negative Urine Specific [place] 1.015 Bedside Urine Occult Blood - Negative Bedside Urine pH 7.0 Bedside Urine Protein - Negative Bedside Urine Urobilinogen - Negative Bedside Urine Nitrite - Negative Bedside Urine Leukocytes - Negative Esterase Discharge Plan Departure Patient Disposition: Home Clinical Impression: Nausea and vomiting during , POTS (postural orthostatic tachycardia syndrome) Headache Qualifiers: Headache type: unspecified Headache chronicity pattern: episodic headache Intractability: not intractable Qualified Code(s): R51 - Headache Discharge Date/Time: 02/02/19 17:03 Interventions: ED Discharge Assessment Last Done: 02/02/19 17:02 Instructions: DI for Headache, Nausea and Vomiting-Adult Activity Restrictions/Additional Instructions: There was no acute problem found on your lab work or imaging today. Since you are feeling better, you can rest at home. Please drink plenty of clear fluids, and eat a little bit of bland food every couple of hours to help your nausea. Take the Zofran as needed since that has been helpful for you in the past. I suspect that your headache was due to being low on fluids. You can take Tylenol as needed for pain, but remember you need to take this every 4-6 hours. I think your headache was also related to being low on fluids. Please follow up with your doctor on Wednesday as you have planned. You should return as we talked about if you have any acutely worsening symptoms. Prescriptions: New ondansetron 4 mg tablet,disintegrating 4 mg PO DAILY Qty: 7 RF: 0 No Action Flovent HFA 44 mcg/actuation HFA aerosol inhaler 1 inhalation INHALATION BID Qty: 10.6 RF: 0 Referrals: [facility] [Other] <Lashae Garsia DO - Last Filed: 02/03/19 08:27> Cosign ED Attending Arturo Attestation: I was immediately available in the department for consultation. Documentation has been reviewed. I agree with assessment and plan.
--- NOTE | 2019-02-02 12:45 | ED_ITS ---
HPI - Headache <Anastasiia Mathew PA-C - Last Filed: 02/02/19 17:12> General Chief Complaint: Abdominal Pain Stated Complaint: 10 weeks ,headache and belly pain Time Seen by Provider: 02/02/19 13:06 Source: patient Mode of arrival: ambulatory Limitations: no limitations History of Present Illness HPI Narrative: This 33-year-old female who is 10 weeks comes to ED secondary to headache which she has had for the last 5 or 6 days, states this is across the frontal area and also in the back of her head where her neck feels tight. She states that she has tried Tylenol a couple of times which did not help. She has been going about her usual activities, however today she has been feeling nauseated and vomited twice. She states that she had been having constipation more than usual and was drinking prune juice, but had not had a bowel movement until yesterday, and she had to strain, very hard stools with some blood. She states that she has some constant pain in the left upper quadrant and flank area that started after she was straining to stool yesterday. she denies any exacerbating or alleviating features. She denies any blood with bowel movements aside from yesterday. She denies any urinary symptoms or hematuria. She states that she had a fever yesterday, she thinks 101. She denies any fever, chills, sweats today. She denies any earache, cough, wheeze, chest pain or dyspnea. She denies any new pain or swelling in her extremities or other new complaints on systems review today. She notes that she did have a history of bleeding hemorrhoids with her last . She states that she has a history of some type of intestinal ulcer, denies gastric ulcer Related Data Previous Rx's Medication Instructions Recorded fluticasone propionate [Flovent 1 inhalation INHALATION BID #10.6 04/02/18 HFA] gram ondansetron 4 mg PO DAILY #7 tab 02/02/19 Allergies Allergy/AdvReac Type Severity Reaction Status Date / Time ibuprofen [From Motrin] AdvReac Verified 04/02/18 10:00 Opioids - Morphine Analogues AdvReac Verified 01/14/19 15:55 Review of Systems <Anastasiia Mathew PA-C - Last Filed: 02/02/19 17:12> Review of Systems ROS Unobtainable: All systems reviewed & are unremarkable except as noted in HPI and below PFSH <Anastasiia Mathew PA-C - Last Filed: 02/02/19 17:12> Medical History (Updated 02/02/19 @ 16:49 by Anastasiia Mathew PA-C) Asthma (Chronic) H/O ulcer disease (Chronic) POTS (postural orthostatic tachycardia syndrome) (Chronic) Surgical History Status post appendectomy (Resolved) Status post cholecystectomy (Resolved) Social History Smoking Status: Former smoker Social History Smoking Status: Former smoker Exam <Anastasiia Mathew PA-C - Last Filed: 02/02/19 17:12> Narrative Exam Narrative: GENERAL APPEARANCE: Patient sitting comfortably, in no distress. HEENT: PERRL, EOMI, conjunctiva pink, no scleral icterus NECK: Supple LUNGS: Clear to auscultation bilaterally. HEART: Rate and rhythm regular, normal S1 and S2, no S3 or S4. ABDOMEN: Soft, nondistended, bowel sounds present x 4 quadrants, no masses palpable, no hepatosplenomegaly. Mild left upper quadrant and CVA tenderness to palpation, no rebound or guarding, no tenderness elsewhere EXTREMITIES: No edema, no calf tenderness DERMATOLOGIC: No jaundice or exanthem NEUROLOGIC: Alert and oriented with normal speech and coordination RECTAL: No external lesions or masses, no palpable internal masses, small amount of brown stool in vault, guaiac negative Initial Vital Signs Initial Vital Signs: Vital Signs Temperature 99.0 F 02/02/19 12:50 Pulse Rate 112 H 02/02/19 12:50 Respiratory Rate 16 02/02/19 12:50 Blood Pressure 123/75 02/02/19 12:50 Pulse Oximetry 100 02/02/19 12:50 <Lashae Garsia DO - Last Filed: 02/03/19 08:27> Initial Vital Signs Initial Vital Signs: Vital Signs Temperature 99.0 F 02/02/19 12:50 Pulse Rate 112 H 02/02/19 12:50 Respiratory Rate 16 02/02/19 12:50 Blood Pressure 123/75 02/02/19 12:50 Pulse Oximetry 100 02/02/19 12:50 Course <Anastasiia Mathew PA-C - Last Filed: 02/02/19 17:12> Additional Information: Patient reports feeling significantly improved after fluids and medications. She is sitting comfortably, texting on her cell phone, walking normally. Likely mild dehydration given her history of pots syndrome and vomiting. Reviewed lab and imaging study findings, and she already has follow-up scheduled at her OB/primary care clinic on Wednesday. She agreed to return if any acutely worsening symptoms again in the interim Orders Ordered: Discontinued Medications Acetaminophen (Tylenol) 650 mg PO NOW ONE Stop: 02/02/19 13:20 Last Admin: 02/02/19 13:55 Dose: 650 mg Sodium Chloride (Normal Saline 0.9%) 500 mls @ 1,000 mls/hr IV BOLUS PRN PRN Reason: Fluid replacement Last Infusion: 02/02/19 14:42 Dose: 0 mls/hr Admin: 02/02/19 13:55 Dose: 1,000 mls/hr Sodium Chloride (Normal Saline 0.9%) 1,000 mls @ 1,000 mls/hr IV BOLUS ONE Stop: 02/02/19 14:54 Last Infusion: 02/02/19 15:53 Dose: 0 mls/hr Admin: 02/02/19 14:59 Dose: 1,000 mls/hr Ondansetron HCl (Zofran) 4 mg IV NOW ONE Stop: 02/02/19 13:19 Last Admin: 02/02/19 13:56 Dose: 4 mg Vital Signs - 8 hr 02/02/19 12:50 02/02/19 15:22 02/02/19 17:02 Temperature 99.0 F Pulse Rate 112 H 86 101 H Respiratory Rate 16 16 15 Blood Pressure 123/75 108/64 Blood Pressure [Left Arm] 106/67 Pulse Oximetry 100 99 98 <Lashae Garsia DO - Last Filed: 02/03/19 08:27> Orders Ordered: Discontinued Medications Acetaminophen (Tylenol) 650 mg PO NOW ONE Stop: 02/02/19 13:20 Last Admin: 02/02/19 13:55 Dose: 650 mg Sodium Chloride (Normal Saline 0.9%) 500 mls @ 1,000 mls/hr IV BOLUS PRN PRN Reason: Fluid replacement Last Infusion: 02/02/19 14:42 Dose: 0 mls/hr Admin: 02/02/19 13:55 Dose: 1,000 mls/hr Sodium Chloride (Normal Saline 0.9%) 1,000 mls @ 1,000 mls/hr IV BOLUS ONE Stop: 02/02/19 14:54 Last Infusion: 02/02/19 15:53 Dose: 0 mls/hr Admin: 02/02/19 14:59 Dose: 1,000 mls/hr Ondansetron HCl (Zofran) 4 mg IV NOW ONE Stop: 02/02/19 13:19 Last Admin: 02/02/19 13:56 Dose: 4 mg Vital Signs - 8 hr 02/02/19 12:50 02/02/19 15:22 02/02/19 17:02 Temperature 99.0 F Pulse Rate 112 H 86 101 H Respiratory Rate 16 16 15 Blood Pressure 123/75 108/64 Blood Pressure [Left Arm] 106/67 Pulse Oximetry 100 99 98 MDM - Headache <Anastsaiia Mathew PA-C - Last Filed: 02/02/19 17:12> Lab Data Attestation: I reviewed the patient's lab results. Result diagrams: 02/02/19 13:30 02/02/19 13:30 Lab Results 02/02/19 02/02/19 Range/Units 13:30 13:30 WBC 6.7 (4.5-11.0) X10^3/uL RBC 4.26 (4.0-5.2) X10^6/uL Hgb 13.5 (12.0-16.0) g/dL Hct 37.9 (36-46) % MCV 89.1 (80-100) fL MCH 31.7 (26-34) PG MCHC 35.6 (30-36) % RDW 13.0 (11.6-14.8) % Plt Count 244 (150-400) X10^3/uL Neut % (Auto) 66.9 (50-75) % Lymph % (Auto) 24.2 L (25-40) % [place] % (Auto) 6.4 (3-14) % Eos % (Auto) 1.7 L (2-4) % Baso % (Auto) 0.8 (0-2) % Neut # (Auto) 4400 (7957-7676) /uL Lymph # (Auto) 1600 (0637-2623) /uL [place] # (Auto) 400 (0-900) /uL Eos # (Auto) 100 (0-450) /uL Baso # (Auto) 100 (0-100) /uL Sodium 138 (137-145) mmol/L Potassium 3.5 (3.4-5.1) mmol/L Chloride 103 (98-107) mmol/L Carbon Dioxide 22 (22-32) mmol/L BUN 7 (7-17) mg/dL Creatinine 0.40 L (0.52-1.04) mg/dL Estimated GFR > 60.0 (>60) mL/min BUN/Creatinine Ratio 17.5 (6-22) Glucose 95 (70-100) mg/dL Calcium 9.4 (8.4-10.2) mg/dL Total Bilirubin 1.0 (0.2-1.3) mg/dL AST 25 (14-36) IU/L ALT 12 (9-52) IU/L Alkaline Phosphatase 37 L (38-126) U/L Total Protein 7.3 (6.3-8.2) g/dL Albumin 4.4 (3.5-5.0) g/dL Globulin 2.9 (1.7-4.1) g/dL Albumin/Globulin Ratio 1.5 (1.0-2.8) Lipase 88 (23-300) U/L HCG, Quant 85759 mIU/mL Point of Care Testing Test Results Positive Urine Dip Bedside Urine Glucose Negative Bedside Urine Bilirubin - Negative Bedside Urine Ketone - Negative Urine Specific Gabbs 1.015 Bedside Urine Occult Blood - Negative Bedside Urine pH 7.0 Bedside Urine Protein - Negative Bedside Urine Urobilinogen - Negative Bedside Urine Nitrite - Negative Bedside Urine Leukocytes - Negative Esterase Imaging Data US - abdomen: Radiologist's impression: [address] [address] Ultrasound Report Signed Patient: Marcelina Bella CMR#: [id number] : 1985Acct:[id number] Age/Sex: te of Service: 02/02/19 Loc: ED Accession Number: [id number] Procedure: US abdomen complete Ordering Provider: Anastasiia Mathew P.A-C PROCEDURE: US ABDOMEN COMPLETE INDICATIONS: LUQ, FLANK PAIN, PG TECHNIQUE: Real-time scanning was performed of the abdominal and retroperitoneal organs, with image documentation. COMPARISON: None. FINDINGS: Liver: Liver is normal in size and homogeneous in echotexture. Gallbladder: The: Gallbladder is surgically removed. Biliary ducts: Intrahepatic bile ducts are non-dilated. Extrahepatic bile duct caliber measures 2.9 mm. Normal is 6-7 mm or less in diameter, or 10 mm or less post-cholecystectomy. Pancreas: Visualized portions of the pancreas are sonographically normal. Spleen: Spleen is normal in size and homogeneous in echotexture. Kidneys: Kidneys are normal in size and echotexture. Right kidney measures 10.6 cm long; left kidney measures 9.9 cm long. No hydronephrosis or nephrolithiasis. No solid masses. Aorta: Visualized aorta is normal in caliber at less than 3 cm. Iliacs: Proximal common iliac arteries are normal in caliber at less than 2.5 cm. IVC: Intrahepatic inferior vena cava is patent. Miscellaneous: No free abdominal fluid. There is a single living IUP with heart rate 171 bpm. IMPRESSION: 1. Cholecystectomy. 2. Otherwise normal abdominal ultrasound exam. No ultrasound findings to explain left upper quadrant and left flank pain. Dictated by: Pierre Ashby M.D. on 02/02/2019 at 15:51 Approved by: Pierre Ashby M.D. on 02/02/2019 at 15:53 <Lashae Garsia DO - Last Filed: 02/03/19 08:27> Lab Data Lab Results 02/02/19 02/02/19 Range/Units 13:30 13:30 WBC 6.7 (4.5-11.0) X10^3/uL RBC 4.26 (4.0-5.2) X10^6/uL Hgb 13.5 (12.0-16.0) g/dL Hct 37.9 (36-46) % MCV 89.1 (80-100) fL MCH 31.7 (26-34) PG MCHC 35.6 (30-36) % RDW 13.0 (11.6-14.8) % Plt Count 244 (150-400) X10^3/uL Neut % (Auto) 66.9 (50-75) % Lymph % (Auto) 24.2 L (25-40) % [place] % (Auto) 6.4 (3-14) % Eos % (Auto) 1.7 L (2-4) % Baso % (Auto) 0.8 (0-2) % Neut # (Auto) 4400 (1435-7161) /uL Lymph # (Auto) 1600 (1429-3376) /uL [place] # (Auto) 400 (0-900) /uL Eos # (Auto) 100 (0-450) /uL Baso # (Auto) 100 (0-100) /uL Sodium 138 (137-145) mmol/L Potassium 3.5 (3.4-5.1) mmol/L Chloride 103 (98-107) mmol/L Carbon Dioxide 22 (22-32) mmol/L BUN 7 (7-17) mg/dL Creatinine 0.40 L (0.52-1.04) mg/dL Estimated GFR > 60.0 (>60) mL/min BUN/Creatinine Ratio 17.5 (6-22) Glucose 95 (70-100) mg/dL Calcium 9.4 (8.4-10.2) mg/dL Total Bilirubin 1.0 (0.2-1.3) mg/dL AST 25 (14-36) IU/L ALT 12 (9-52) IU/L Alkaline Phosphatase 37 L (38-126) U/L Total Protein 7.3 (6.3-8.2) g/dL Albumin 4.4 (3.5-5.0) g/dL Globulin 2.9 (1.7-4.1) g/dL Albumin/Globulin Ratio 1.5 (1.0-2.8) Lipase 88 (23-300) U/L HCG, Quant 02250 mIU/mL Point of Care Testing Test Results Positive Urine Dip Bedside Urine Glucose Negative Bedside Urine Bilirubin - Negative Bedside Urine Ketone - Negative Urine Specific [place] 1.015 Bedside Urine Occult Blood - Negative Bedside Urine pH 7.0 Bedside Urine Protein - Negative Bedside Urine Urobilinogen - Negative Bedside Urine Nitrite - Negative Bedside Urine Leukocytes - Negative Esterase Discharge Plan Departure Patient Disposition: Home Clinical Impression: Nausea and vomiting during , POTS (postural orthostatic tachycardia syndrome) Headache Qualifiers: Headache type: unspecified Headache chronicity pattern: episodic headache Intractability: not intractable Qualified Code(s): R51 - Headache Discharge Date/Time: 02/02/19 17:03 Interventions: ED Discharge Assessment Last Done: 02/02/19 17:02 Instructions: DI for Headache, Nausea and Vomiting-Adult Activity Restrictions/Additional Instructions: There was no acute problem found on your lab work or imaging today. Since you are feeling better, you can rest at home. Please drink plenty of clear fluids, and eat a little bit of bland food every couple of hours to help your nausea. Take the Zofran as needed since that has been helpful for you in the past. I suspect that your headache was due to being low on fluids. You can take Tylenol as needed for pain, but remember you need to take this every 4-6 hours. I think your headache was also related to being low on fluids. Please follow up with your doctor on Wednesday as you have planned. You should return as we talked about if you have any acutely worsening symptoms. Prescriptions: New ondansetron 4 mg tablet,disintegrating 4 mg PO DAILY Qty: 7 RF: 0 No Action Flovent HFA 44 mcg/actuation HFA aerosol inhaler 1 inhalation INHALATION BID Qty: 10.6 RF: 0 Referrals: [facility] [Other] <Lashae Garisa DO - Last Filed: 02/03/19 08:27> Cosign ED Attending Arturo Attestation: I was immediately available in the department for consultation. Documentation has been reviewed. I agree with assessment and plan.
[2019-02-02 12:50] VITALS: BP 123/75; PULSE 112; RESP 16; TEMP 37.2; O2SAT 100
--- NOTE | 2019-02-02 13:18 | DI.US.S_ITS ---
PROCEDURE: US ABDOMEN COMPLETE INDICATIONS: LUQ, FLANK PAIN, PG TECHNIQUE: Real-time scanning was performed of the abdominal and retroperitoneal organs, with image documentation. COMPARISON: None. FINDINGS: Liver: Liver is normal in size and homogeneous in echotexture. Gallbladder: The: Gallbladder is surgically removed. Biliary ducts: Intrahepatic bile ducts are non-dilated. Extrahepatic bile duct caliber measures 2.9 mm. Normal is 6-7 mm or less in diameter, or 10 mm or less post-cholecystectomy. Pancreas: Visualized portions of the pancreas are sonographically normal. Spleen: Spleen is normal in size and homogeneous in echotexture. Kidneys: Kidneys are normal in size and echotexture. Right kidney measures 10.6 cm long; left kidney measures 9.9 cm long. No hydronephrosis or nephrolithiasis. No solid masses. Aorta: Visualized aorta is normal in caliber at less than 3 cm. Iliacs: Proximal common iliac arteries are normal in caliber at less than 2.5 cm. IVC: Intrahepatic inferior vena cava is patent. Miscellaneous: No free abdominal fluid. There is a single living IUP with heart rate 171 bpm. IMPRESSION: 1. Cholecystectomy. 2. Otherwise normal abdominal ultrasound exam. No ultrasound findings to explain left upper quadrant and left flank pain. Dictated by: Pierre Ashby M.D. on 02/02/2019 at 15:51 Approved by: Pierre Ashby M.D. on 02/02/2019 at 15:53
[2019-02-02 13:40] LABS: Add Manual Diff / Slide Review NO; Basophils Absolute Auto 100 /uL (0-100); Basophils Percent Auto 0.8 % (0-2); Eosinophils Absolute Auto 100 /uL (0-450); Eosinophils Percent Auto 1.7 % (2-4); Hematocrit 37.9 % (36-46); Hemoglobin 13.5 g/dL (12.0-16.0); Lymphocytes Absolute Auto 1600 /uL (1100-4500); Lymphocytes Percent Auto 24.2 % (25-40); Mean Corpuscular HGB Conc 35.6 % (30-36); Mean Corpuscular Hemoglobin 31.7 PG (26-34); Mean Corpuscular Volume 89.1 fL (80-100); Monocytes Absolute Auto 400 /uL (0-900); Monocytes Percent Auto 6.4 % (3-14); Neutrophils Absolute Auto 4400 /uL (1500-7000); Neutrophils Percent Auto 66.9 % (50-75); Platelet Count 244 X10^3/uL (150-400); Red Blood Cell Count 4.26 X10^6/uL (4.0-5.2); White Blood Cell Count 6.7 X10^3/uL (4.5-11.0)
[2019-02-02 13:53] LABS: Alanine Aminotransferase 12 IU/L (9-52); Albumin 4.4 g/dL (3.5-5.0); Albumin Globulin Ratio 1.5 (1.0-2.8); Alkaline Phosphatase 37 U/L (38-126); Aspartate Aminotransferase 25 IU/L (14-36); BUN Creatinine Ratio 17.5 (6-22); Blood Urea Nitrogen 7 mg/dL (7-17); Calcium 9.4 mg/dL (8.4-10.2); Carbon Dioxide 22 mmol/L (22-32); Chloride 103 mmol/L (98-107); Estimated Glomerular Filt Rate > 60.0 mL/min (>60); Globulin 2.9 g/dL (1.7-4.1); Glucose 95 mg/dL (70-100); HEMOLYSIS 27 (0-50); Lipase 88 U/L (23-300); Potassium 3.5 mmol/L (3.4-5.1); Sodium 138 mmol/L (137-145); Total Protein 7.3 g/dL (6.3-8.2)
[2019-02-02] MEDS: ACETAMINOPHEN 325 MG TABLET 650 MG PO (13:55)
[2019-02-02] MEDS: SODIUM CHLORIDE 0.9% 500 ML 1000 ML IV (13:55)
[2019-02-02] MEDS: ONDANSETRON 4 MG/2 ML INJ IV (13:56)
[2019-02-02 14:33] LABS: HCG Quantitative /Beta subunit 81604 mIU/mL
[2019-02-02] MEDS: SODIUM CHLORIDE 0.9% 1,000 ML 1000 ML IV (14:59)
[2019-02-02 15:22] VITALS: BP 106/67; PULSE 86; RESP 16; O2SAT 99
[2019-02-02 17:02] VITALS: BP 108/64; PULSE 101; RESP 15; O2SAT 98
== END 2019-02-02 17:03 | disposition home or self-care (01) ==
PROVIDERS: Emergency Provider Internal Medicine
DX: O21.9 Vomiting of pregnancy, unspecified (principal); R51 Headache; R00.0 Tachycardia, unspecified; Z3A.10 10 weeks gestation of pregnancy
CPT/HCPCS: 36591; 76700; 80053; 81003; 81025; 83690; 84702; 85025; 96361; 96374; 99283; 99284; J2405

== ENCOUNTER 2019-03-09 19:31 | Emergency (ER) | payer OTHER, MEDICAID, SELFPAY ==
[2019-03-09 19:36] VITALS: BP 119/69; PULSE 108; RESP 18; TEMP 36.6; O2SAT 100
--- NOTE | 2019-03-09 19:51 | ED_ITS ---
HPI - Fever General Chief Complaint: Fever Stated Complaint: 16 weeks , fever Time Seen by Provider: 03/09/19 19:51 Source: patient Mode of arrival: ambulatory Limitations: no limitations History of Present Illness HPI Narrative: The patient is currently 16 weeks . Last night she had a fever. She complains of sinus pressure and ear pressure. She denies rhinorrhea. She denies sore throat or dysphagia. She is not coughing. She has no chest discomfort. She has no abdominal pain, nausea, vomiting or diarrhea. She has constipation, likely from her PNVs w/ Iron. She is having abdominal pain. She is not consistently feeling the baby move yet. She denies dysuria or vaginal complaints. She is drinking plenty of fluids, forcing fluids and stay well hydrated. She has no fever today. She slept with her young child about a week ago, who had a head cold at that time. The child has resolved while symptoms. Additionally, the patient has POTS syndrome. She has frequent visits for dehydration. She feels no weakness or dizziness. Other than the head cold symptoms, she is asymptomatic. Related Data Previous Rx's Medication Instructions Recorded fluticasone propionate [Flovent 1 inhalation INHALATION BID #10.6 04/02/18 HFA] gram Allergies Allergy/AdvReac Type Severity Reaction Status Date / Time ibuprofen [From Motrin] AdvReac Verified 04/02/18 10:00 Opioids - Morphine Analogues AdvReac Verified 01/14/19 15:55 Review of Systems Review of Systems ROS Unobtainable: All systems reviewed & are unremarkable except as noted in HPI and below Constitutional Denies chills, Reports fever(s), Denies lethargy and Reports weakness Eyes Denies eye discharge and Denies irritation ENT Ears, Nose, Mouth, and Throat: Denies change in voice, Denies dysphagia, Denies dizziness, Denies dry mouth, Denies neck pain, Reports odynophagia, Denies post nasal drip, Reports sinus pressure and Denies sore throat Cardiovascular Denies chest pain, Denies irregular heart rhythm, Denies lightheadedness, Denies palpitations, Denies dyspnea and Denies orthopnea Respiratory Denies cough and Denies dyspnea Gastrointestinal Gastrointestinal: Denies abdominal pain, Denies dysphagia, Denies nausea, Reports odynophagia and Denies vomiting Genitourinary Denies flank pain and Denies urinary urgency Musculoskeletal Denies back pain and Denies neck pain Integumentary/Breasts Denies pruritus, Denies erythema, Denies rash and Denies wounds Neurologic Denies confusion, Denies dizziness and Reports weakness Psychiatric Denies anxiety and Denies confusion Endocrine Denies palpitations Hematologic/Lymphatic Denies easy bruising [facility] Medical History Asthma (Chronic) H/O ulcer disease (Chronic) POTS (postural orthostatic tachycardia syndrome) (Chronic) Surgical History Status post appendectomy (Resolved) Status post cholecystectomy (Resolved) Social History Smoking Status: Former smoker Social History Smoking Status: Former smoker Exam Initial Vital Signs Initial Vital Signs: Vital Signs Temperature 97.8 F 03/09/19 19:36 Pulse Rate 108 H 03/09/19 19:36 Respiratory Rate 18 03/09/19 19:36 Blood Pressure 119/69 03/09/19 19:36 Pulse Oximetry 100 03/09/19 19:36 Const General: cooperative and well developed Nutritional Appearance: well nourished Orientation: alert, awake and oriented x3 HENMT Head: normocephalic and atraumatic Ears: external ears normal and TM's normal bilaterally Nose: external nose normal and No nasal discharge Face and sinus: sinuses nontender and face symmetric Mouth: oral mucosae normal and moist mucous membranes Teeth and gingiva: abnormal dentition Throat: tonsils normal and uvula midline Eyes Conjunctivae: conjunctivae normal Sclera: sclerae normal Neck Neck: normal visual inspection, full ROM, trachea midline, No anterior neck swelling, No lymphadenopathy, No JVD and other (No meningeal signs) Chest Chest: normal inspection of the chest Resp Effort & Inspection: normal respiratory effort, able to speak in complete sentences, no respiratory distress and no use of accessory muscles Auscultation: clear to auscultation bilaterally, no rales, no rhonchi and no wheezes Cardio Rate: regular rate Rhythm: regular rhythm Heart Sounds: no click, no gallops, no murmurs and no rubs Pulses: normal peripheral pulses GI Inspection: non-distended Palpation: soft, no hepatosplenomegaly, No guarding, No pulsatile mass and No tender Auscultation: normal bowel sounds Other: Gravid uterus, no palpable tenderness. Consistent with 16 week . FHT is 154 by Doppler. Back/Spine/Pelvis Back: No CVA tenderness Skin General: no rashes or lesions noted Neuro General: alert, oriented x3 and no focal motor deficits Speech: speech normal Extrem General: full ROM, no clubbing, cyanosis or edema, no pedal edema and no calf tenderness Course Course Narrative: The patient has a history and findings consistent with a viral syndrome. Postures were done, there is no evidence of dehydration. Urinalysis is clear. She likely has a head cold like she described her daughter having about 1 week ago. Vital Signs - 8 hr 03/09/19 19:36 Temperature 97.8 F Pulse Rate 108 H Respiratory Rate 18 Blood Pressure 119/69 Pulse Oximetry 100 Discharge Plan Departure Patient Disposition: Home Clinical Impression: Acute viral syndrome Instructions: DI for Viral Syndrome Activity Restrictions/Additional Instructions: Tylenol 2 tablets every 4 hours for pain or fever. Be sure urine drinking plenty fluids and stay well hydrated as you have. Return the ER for weakness or dizziness as necessary. Follow-up with your doctor or return the ER if symptoms increase in any way. Prescriptions: No Action Flovent HFA 44 mcg/actuation HFA aerosol inhaler 1 inhalation INHALATION BID Qty: 10.6 RF: 0
--- NOTE | 2019-03-09 20:13 | PC.NURSE ---
Pt states MANCERA and sinus pressure with a fever of 101 last night. Pt states is 16 weeks with intermittent nausea denies vaginal bleeding.States she came to ER because she was concerned about fever, pt was afebrile in triage T 97.8 with last dose of tylenol taken this AM.
[2019-03-09 20:17] VITALS: BP 103/68; BP 105/64; BP 105/69; PULSE 104; PULSE 105; PULSE 108
[2019-03-09 20:23] VITALS: TEMP 36.8
== END 2019-03-09 20:23 | disposition home or self-care (01) ==
PROVIDERS: Emergency Provider Emergency Medicine
DX: B34.9 Viral infection, unspecified (principal); Z33.1 Pregnant state, incidental
CPT/HCPCS: 81003; 99282; 99283

== ENCOUNTER 2019-06-03 18:27 | Emergency (ER) | payer OTHER, MEDICAID, SELFPAY ==
[2019-06-03 18:38] VITALS: BP 138/81; PULSE 105; RESP 18; TEMP 36.6; O2SAT 100
--- NOTE | 2019-06-03 18:42 | ED_ITS ---
HPI - General Adult General Chief complaint: Dizziness Stated complaint: 29wks preg, lighthead,dizzy,weak, gestational diab Time Seen by Provider: 06/03/19 18:39 Source: patient Mode of arrival: ambulatory Limitations: no limitations History of Present Illness HPI narrative: 34-year-old female at 29 weeks EGA here for evaluation of dizziness. States she is feeling her baby move. Is having some lower abdominal cramping. Is having some itching when she urinates. The symptoms started today. She also states that today she started to have lightheadedness. States it was not a room spinning sensation. No chest pain. within the past week she was diagnosed with gestational diabetes. She has an appointment with Maternal- Medicine the beginning of next week but has not been evaluated by them to this point. Related Data Previous Rx's Medication Instructions Recorded fluticasone propionate [Flovent 1 inhalation INHALATION BID #10.6 04/02/18 HFA] gram nitrofurantoin monohyd/m-cryst 100 mg PO BID #9 cap 06/03/19 [Macrobid] Allergies Allergy/AdvReac Type Severity Reaction Status Date / Time ibuprofen [From Motrin] AdvReac Verified 06/03/19 18:43 Opioids - Morphine Analogues AdvReac Verified 06/03/19 18:43 Review of Systems Constitutional Constitutional: Denies fever(s) and Denies weakness ENT Ears, Nose, Mouth, and Throat: Denies vertigo, Reports dizziness and Reports disequilibrium Cardiovascular Cardiovascular: Denies chest pain, Denies palpitations and Denies dyspnea Respiratory Respiratory: Denies dyspnea Gastrointestinal Gastrointestinal: Denies abdominal pain, Denies nausea and Denies vomiting Genitourinary Genitourinary: Reports vaginal discharge Musculoskeletal Musculoskeletal: Denies myalgias and Denies arthralgias Integumentary/Breasts Skin/Breast: Denies lesions and Denies rash Neurologic Neurologic: Denies vertigo, Reports dizziness, Reports disequilibrium and Denies weakness Endocrine Endocrine: Denies palpitations Hematologic/Lymphatic Hematologic/Lymphatic: Denies easy bleeding and Denies easy bruising FOR[facility]LY [facility], [facility] Medical History Asthma (Chronic) H/O ulcer disease (Chronic) POTS (postural orthostatic tachycardia syndrome) (Chronic) Social History (Reviewed 06/03/19 @ 19:10 by GAVIN Apodaca Smoking Status: Former smoker Exam Initial Vital Signs Initial Vital Signs: Vital Signs Temperature 97.8 F 06/03/19 18:38 Pulse Rate 105 H 06/03/19 18:38 Respiratory Rate 18 06/03/19 18:38 Blood Pressure 138/81 06/03/19 18:38 Pulse Oximetry 100 06/03/19 18:38 Const General: cooperative, healthy appearing, comfortable and well developed Orientation: alert, awake and oriented x3 HENMT Head: normal to inspection and normocephalic Resp Effort & Inspection: normal respiratory effort Auscultation: clear to auscultation bilaterally Cardio Rate: regular rate Rhythm: regular rhythm GI Palpation: soft Other: Gravid abdomen Back/Spine/Pelvis Back: normal to inspection Skin Lesions: no lesions Rashes: no rashes Neuro General: alert and awake Cognition: normal cognition Speech: speech normal Extrem General: normal to inspection and capillary refill normal Psych Appearance: grossly normal and well kempt Course Orders Ordered: ED Orders 06/03/19 18:42 EKG-12 Lead Stat 06/03/19 18:45 Complete Blood Count AUTO DIFF Stat Comprehensive Metabolic Panel Stat Lipase Stat 06/03/19 19:20 Urine Microscopic Stat 06/03/19 20:04 Urine Culture Stat Nitrofurantoin Macrocrystals (Macrobid 100 Mg Capsule) 100 mg PO NOW ONE Stop: 06/03/19 20:31 Discontinued Medications Sodium Chloride (Normal Saline 0.9%) 1,000 mls @ 1,000 mls/hr IV BOLUS ONE Stop: 06/03/19 19:38 Last Infusion: 06/03/19 20:23 Dose: 0 mls/hr Documented by: Admin: 06/03/19 19:19 Dose: 1,000 mls/hr Documented by: DORINDA Vital Signs Vital signs: Vital Signs - 8 hr 06/03/19 18:38 06/03/19 18:52 Temperature 97.8 F Pulse Rate 105 H 99 H Respiratory Rate 18 18 Blood Pressure 138/81 Blood Pressure [Right Arm] 138/91 H Pulse Oximetry 100 99 Medical Decision Making Lab Data Lab results reviewed: Yes I reviewed the patient's lab results. Result diagrams: 06/03/19 18:45 06/03/19 18:45 Labs: Lab Results 06/03/19 06/03/19 06/03/19 Range/Units 18:45 18:45 19:20 WBC 9.9 (4.5-11.0) X10^3/uL RBC 3.96 L (4.0-5.2) X10^6/uL Hgb 12.9 (12.0-16.0) g/dL Hct 36.3 (36-46) % MCV 91.6 (80-100) fL MCH 32.6 (26-34) PG MCHC 35.6 (30-36) % RDW 12.9 (11.6-14.8) % Plt Count 221 (150-400) X10^3/uL Neut % (Auto) 76.5 H (50-75) % Lymph % (Auto) 16.5 L (25-40) % Wood % (Auto) 5.6 (3-14) % Eos % (Auto) 0.6 L (2-4) % Baso % (Auto) 0.8 (0-2) % Neut # (Auto) 7500 H (7935-7308) /uL Lymph # (Auto) 1600 (6950-7929) /uL Wood # (Auto) 600 (0-900) /uL Eos # (Auto) 100 (0-450) /uL Baso # (Auto) 100 (0-100) /uL Sodium 137 (137-145) mmol/L Potassium 3.4 (3.4-5.1) mmol/L Chloride 101 (98-107) mmol/L Carbon Dioxide 25 (22-32) mmol/L BUN 7 (7-17) mg/dL Creatinine 0.40 L (0.52-1.04) mg/dL Estimated GFR > 60.0 (>60) mL/min BUN/Creatinine Ratio 17.5 (6-22) Glucose 96 (70-100) mg/dL Calcium 9.0 (8.4-10.2) mg/dL Total Bilirubin 0.7 (0.2-1.3) mg/dL AST 24 (14-36) IU/L ALT 18 (9-52) IU/L Alkaline Phosphatase 69 (38-126) U/L Total Protein 6.8 (6.3-8.2) g/dL Albumin 3.9 (3.5-5.0) g/dL Globulin 2.9 (1.7-4.1) g/dL Albumin/Globulin Ratio 1.3 (1.0-2.8) Lipase 92 (23-300) U/L Urine RBC 1-5/hpf (0-5/HPF) Urine WBC 1-5/hpf (0-5/HPF) Ur Squamous Epith Cells 5-10 /hpf H (0-5/HPF) Urine Bacteria Many (>30) H (None) Urine Mucus 1+ H (Negative) Ur Culture Indicated? Cult not indicated Point of Care Testing Glucose POC 92 Urine Dip Bedside Urine Glucose Negative Bedside Urine Bilirubin - Negative Bedside Urine Ketone +/- 5 Urine Specific [place] 1.020 Bedside Urine Occult Blood - Negative Bedside Urine pH 6.0 Bedside Urine Protein +/- 15 Bedside Urine Urobilinogen +/- 1mg Bedside Urine Nitrite - Negative Bedside Urine Leukocytes - Negative Esterase Point of care testing: Point of Care Testing Glucose POC 92 Urine Dip Bedside Urine Glucose Negative Bedside Urine Bilirubin - Negative Bedside Urine Ketone +/- 5 Urine Specific [place] 1.020 Bedside Urine Occult Blood - Negative Bedside Urine pH 6.0 Bedside Urine Protein +/- 15 Bedside Urine Urobilinogen +/- 1mg Bedside Urine Nitrite - Negative Bedside Urine Leukocytes - Negative Esterase ECG Data Attestation: I personally reviewed and interpreted this ECG as follows: Prior ECG tracings: not available for review Interpretation: Sinus tachycardia Ventricular rate of 102 Normal axis Normal QRS Normal QTC No ST T wave changes MDM Narrative Medical decision making narrative: Patient states she feels much better after the fluids. She states that her lower abdominal pain is now gone. Her labs are unremarkable. She does have bacteria in her urine and does have some burning when she urinates. Urine culture was ordered however given her status will send her home with antibiotics. I do suspect that all her symptoms were related to dehydration. I did discuss with her that she needed to keep her follow-up with the maternal medicine despite having a normal blood sugar here in the ER. She expressed understanding and agreement with plan. Discharge Plan Departure Patient Disposition: Home Clinical Impression: Dehydration Urinary tract infection Qualifiers: Urinary tract infection type: acute cystitis Hematuria presence: without hematuria Qualified Code(s): N30.00 - Acute cystitis without hematuria Instructions: DI for Urinary Tract Infection (UTI) Activity Restrictions/Additional Instructions: Be sure your increasing your fluid intake. Keep all of your scheduled medical appointments to include your appointments with the maternal medicine specialist. Take the antibiotics as directed. Return to the emergency department for any new or worsening symptoms Prescriptions: New nitrofurantoin monohyd/m-cryst [Macrobid] 100 mg capsule 100 mg PO BID Qty: 9 RF: 0 No Action Flovent HFA 44 mcg/actuation HFA aerosol inhaler 1 inhalation INHALATION BID Qty: 10.6 RF: 0
[2019-06-03 18:52] VITALS: BP 138/91; PULSE 99; RESP 18; O2SAT 99
[2019-06-03 19:00] LABS: Add Manual Diff / Slide Review NO; Basophils Absolute Auto 100 /uL (0-100); Basophils Percent Auto 0.8 % (0-2); Eosinophils Absolute Auto 100 /uL (0-450); Eosinophils Percent Auto 0.6 % (2-4); Hematocrit 36.3 % (36-46); Hemoglobin 12.9 g/dL (12.0-16.0); Lymphocytes Absolute Auto 1600 /uL (1100-4500); Lymphocytes Percent Auto 16.5 % (25-40); Mean Corpuscular HGB Conc 35.6 % (30-36); Mean Corpuscular Hemoglobin 32.6 PG (26-34); Mean Corpuscular Volume 91.6 fL (80-100); Monocytes Absolute Auto 600 /uL (0-900); Monocytes Percent Auto 5.6 % (3-14); Neutrophils Absolute Auto 7500 /uL (1500-7000); Neutrophils Percent Auto 76.5 % (50-75); Platelet Count 221 X10^3/uL (150-400); Red Blood Cell Count 3.96 X10^6/uL (4.0-5.2); Red Cell Distribution Width 12.9 % (11.6-14.8); White Blood Cell Count 9.9 X10^3/uL (4.5-11.0)
[2019-06-03 19:11] LABS: Alanine Aminotransferase 18 IU/L (9-52); Albumin 3.9 g/dL (3.5-5.0); Albumin Globulin Ratio 1.3 (1.0-2.8); Alkaline Phosphatase 69 U/L (38-126); Aspartate Aminotransferase 24 IU/L (14-36); BUN Creatinine Ratio 17.5 (6-22); Bilirubin Total 0.7 mg/dL (0.2-1.3); Blood Urea Nitrogen 7 mg/dL (7-17); Carbon Dioxide 25 mmol/L (22-32); Chloride 101 mmol/L (98-107); Estimated Glomerular Filt Rate > 60.0 mL/min (>60); Globulin 2.9 g/dL (1.7-4.1); Glucose 96 mg/dL (70-100); HEMOLYSIS 24 (0-50); Lipase 92 U/L (23-300); Potassium 3.4 mmol/L (3.4-5.1); Sodium 137 mmol/L (137-145); Total Protein 6.8 g/dL (6.3-8.2)
[2019-06-03] MEDS: SODIUM CHLORIDE 0.9% 1,000 ML 1000 ML IV (19:19)
[2019-06-03 20:01] LABS: RBC Urine 1-5/HPF (0-5/HPF); Squamous Epithelial Cell Urine 5-10 /HPF (0-5/HPF); WBC Urine 1-5/HPF (0-5/HPF)
[2019-06-03 20:02] LABS: Bacteria Urine Many (>30); Culture Indicated Urine Cult Not Indicated; Mucus Urine 1+ (Negative)
[2019-06-03 20:40] VITALS: BP 110/68; PULSE 82; RESP 18; O2SAT 97
[2019-06-03] MEDS: NITROFURANTOIN ER 100 MG CAPSULE PO (20:50)
== END 2019-06-03 20:53 | disposition home or self-care (01) ==
PROVIDERS: Emergency Provider Emergency Medicine
DX: O26.893 Other specified pregnancy related conditions, third trimester (principal); E86.0 Dehydration; N30.00 Acute cystitis without hematuria; Z3A.29 29 weeks gestation of pregnancy
CPT/HCPCS: 36591; 80053; 81003; 81015; 82962; 83690; 85025; 87086; 93005; 96360; 99283; 99284

== ENCOUNTER 2021-05-28 18:14 | Emergency (ER) | payer OTHER, MEDICAID, SELFPAY ==
[2021-05-28] VITALS (19 sets, daily range): BP systolic 117–144; BP diastolic 6–101; PULSE 96–120; RESP 10–30; TEMP 36.6; O2SAT 88–100; BMI 20.9
--- NOTE | 2021-05-28 18:59 | PC.NURSE ---
reports rapid heart rate, fatigue , and thryoid issues
--- NOTE | 2021-05-28 19:11 | ED.NAVMDI ---
HPI - Nausea/Vomiting/Diarrhea General Chief complaint: Nausea/Vomiting/Diarrhea Stated complaint: chills, brain fog, thyroid problem Time Seen by Provider: 05/28/21 19:07 History of Present Illness HPI Narrative: Patient here for nausea vomiting diarrhea. Nonbloody. No sick contacts. Has had heat intolerance. Has had weight loss as well. No altered mental status but has stated she has racing thoughts. No hallucinations. No altered mental status. No prior history of thyroid disease. Patient states seen by [facility] twice in the past 14 days for headache and treated with steroids for carpal tunnel. Blood work was completed and she was informed that her thyroid levels were abnormal. No leg swelling. Patient states has history of POTS syndrome diagnosed when she was 30. No recent syncope. Patient states his feel palpitations. Patient is tachycardic here. Not hypotensive. Not toxic. Patient has not been on her hydroxyzine for week. She says she lost her bottle howeverhas prescription refill tomorrow. She takes it every day for anxiety for the past 7 years Related Data Previous Rx's Medication Instructions Recorded fluticasone propionate 44 1 inhalation INHALATION BID #10.6 04/02/18 mcg/actuation HFA aerosol inhaler gram (Flovent HFA) nitrofurantoin 100 mg PO BID #9 cap 06/03/19 monohydrate/macrocrystals 100 mg capsule (Macrobid) ondansetron 4 mg disintegrating 4 mg PO Q8H PRN #10 tab 05/28/21 tablet Allergies Allergy/AdvReac Type Severity Reaction Status Date / Time ibuprofen [From Motrin] AdvReac Verified 06/03/19 18:43 Opioids - Morphine Analogues AdvReac Verified 06/03/19 18:43 Review of Systems Review of Systems Narrative: GENERAL: Denies chills, fatigue, malaise, fever, complains of sweats. HEENT: Denies sinus pain, ear pain, sore throat RESPIRATORY: Denies dyspnea, cough CARDIOVASCULAR: Denies chest pain, complains of palpitations GASTROINTESTINAL: Complaintnausea, vomiting, and diarrhea but denies abdominal pain : Denies dysuria, frequency, hematuria MUSCULOSKELETAL: denies muscle or bony pain SKIN: Denies rash, skin lesions NEUROLOGIC: Denies weakness, numbness, no altered mental status ROS Unobtainable: All systems reviewed & are unremarkable except as noted in HPI and below Patient History Medical History (Updated 05/28/21 @ 23:07 by Olvin Obando MD) Asthma H/O ulcer disease POTS (postural orthostatic tachycardia syndrome) Surgical History Status post appendectomy Status post cholecystectomy Social History Smoking Status: Former smoker Smoking Status: Former smoker alcohol intake frequency: 0-2 drinks per day Substance Use Type: does not use Exam Narrative Exam Narrative: GENERAL: in no distress, not toxic not dyspneic HEAD: Normocephalic. EYES: Pupils equal round No scleral icterus. No injection no discharge ENT: Mucous membranes moist. NECK: Trachea midline. No thyromegaly CARDIOVASCULAR: Regular rate and rhythm without murmurs, not tachycardic at this time. RESPIRATORY: Clear to auscultation. Breath sounds equal bilaterally. No wheezes, rales, or rhonchi. GASTROINTESTINAL: Abdomen soft, non-tender EXTREMITIES: No gross deformities. BACK: No flank tenderness. NEURO: AOx4. Clear speech no facial droop light touch intact to bilateral face hands and legs. 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 SKIN: Warm and dry PSYCH: Not anxious, is cooperative Initial Vital Signs Initial Vital Signs: Vital Signs Temperature 97.9 F 05/28/21 18:21 Pulse Rate 120 H 05/28/21 18:21 Respiratory Rate 16 05/28/21 18:21 Blood Pressure 123/80 05/28/21 18:21 Pulse Oximetry 100 05/28/21 18:21 Course Course Course Narrative: Heart rate improved with IV hydration. Orders Ordered: ED Orders 05/28/21 18:38 Complete Blood Count AUTO DIFF Stat Comprehensive Metabolic Panel Stat Free T3, Triiodothyronine Free Stat Free T4, Direct Thyroxine Stat Magnesium Stat Test Serum,Qual Stat T4 Total Thyroxine Stat Thyroid Stimulating Hormone Stat 05/28/21 19:10 EKG-12 Lead Stat 05/28/21 19:27 CT head/brain wo con Stat 05/28/21 19:58 Urine Drug Screen, Rapid Stat 05/28/21 21:00 COVID19 - ADMIT (AUT[employer] swab/PCR) Stat Respiratory Panel (Film Array) Stat 05/28/21 21:54 CT angio chest PE protocol Stat Discontinued Medications Sodium Chloride (Normal Saline 0.9%) 1,000 mls @ 1,000 mls/hr IV BOLUS ONE Stop: 05/28/21 22:53 Last Admin: 05/28/21 22:03 Dose: 1,000 mls/hr Documented by: YAIR Ondansetron HCl (Ondansetron 4 Mg/2 Ml Inj) 4 mg IV NOW ONE Stop: 05/28/21 19:09 Last Admin: 05/28/21 19:16 Dose: 4 mg Documented by: YAIR Reevaluation(s) Reevaluation #1: Reviewed results with patient. Heart rate did improve with normal saline IV hydration. Recommended patient needs outpatient follow-up with Neurology as well as MRI of the brain and spinal cord. Not toxic discharge. Time: 23:02 Vital Signs Vital signs: Vital Signs - 8 hr 05/28/21 18:21 05/28/21 18:32 05/28/21 18:34 Temperature 97.9 F Pulse Rate 120 H 103 H 104 H Respiratory Rate 16 21 Blood Pressure 123/80 124/6 L Pulse Oximetry 100 100 98 05/28/21 18:38 05/28/21 19:00 05/28/21 19:01 Temperature Pulse Rate 102 H 105 H 105 H Respiratory Rate 21 Blood Pressure 123/82 125/101 H Pulse Oximetry 100 99 100 05/28/21 19:30 05/28/21 19:46 05/28/21 20:00 Temperature Pulse Rate 103 H 97 H 112 H Respiratory Rate 19 18 Blood Pressure 126/78 134/77 117/82 Pulse Oximetry 99 96 99 05/28/21 20:30 05/28/21 20:40 05/28/21 21:00 Temperature Pulse Rate 119 H 101 H 118 H Respiratory Rate 21 10 L 25 H Blood Pressure 131/87 Pulse Oximetry 99 88 L 94 05/28/21 21:01 05/28/21 21:30 05/28/21 22:00 Temperature Pulse Rate 111 H 109 H 116 H Respiratory Rate 21 18 30 H Blood Pressure 142/86 H 144/80 H Pulse Oximetry 95 92 97 05/28/21 22:30 05/28/21 23:00 05/28/21 23:20 Temperature Pulse Rate 104 H 109 H 98 H Respiratory Rate 13 16 25 H Blood Pressure 121/83 Pulse Oximetry 96 99 05/28/21 23:30 Temperature Pulse Rate 96 H Respiratory Rate 20 Blood Pressure Pulse Oximetry MDM - Nausea/Vomiting/Diarrhea Differential Diagnosis Differential diagnosis: Likely dehydration and other (Thyroid storm/anxiety/hydroxyzine withdrawal) Lab Data Result diagrams: 05/28/21 18:38 05/28/21 18:38 Labs: Lab Results 05/28/21 05/28/21 05/28/21 Range/Units 18:38 18:38 18:38 WBC 6.2 (4.5-11.0) X10^3/uL RBC 4.85 (4.0-5.2) X10^6/uL Hgb 14.9 (12.0-16.0) g/dL Hct 43.6 (36-46) % MCV 89.9 (80-100) fL MCH 30.7 (26-34) PG MCHC 34.1 (30-36) % RDW 12.6 (11.6-14.8) % Plt Count 302 (150-400) X10^3/uL Neut % (Auto) 64.9 (50-75) % Lymph % (Auto) 27.1 (25-40) % [place] % (Auto) 6.1 (3-14) % Eos % (Auto) 1.0 L (2-4) % Baso % (Auto) 0.9 (0-2) % Neut # (Auto) 4000 (4204-0130) /uL Lymph # (Auto) 1700 (3931-7967) /uL [place] # (Auto) 400 (0-900) /uL Eos # (Auto) 100 (0-450) /uL Baso # (Auto) 100 (0-100) /uL Sodium 140 (137-145) mmol/L Potassium 3.3 L (3.4-5.1) mmol/L Chloride 102 (98-107) mmol/L Carbon Dioxide 29 (22-32) mmol/L BUN 13 (7-17) mg/dL Creatinine 0.72 (0.52-1.04) mg/dL Estimated GFR > 60.0 (>60) mL/min BUN/Creatinine Ratio 18.1 (6-22) Glucose 114 H (70-100) mg/dL Calcium 9.4 (8.4-10.2) mg/dL Magnesium (1.6-2.3) mg/dL Total Bilirubin 1.3 (0.2-1.3) mg/dL AST 46 H (14-36) IU/L ALT 79 H (<35) IU/L Alkaline Phosphatase 55 (38-126) U/L Total Protein 8.1 (6.3-8.2) g/dL Albumin 5.0 (3.5-5.0) g/dL Globulin 3.1 (1.7-4.1) g/dL Albumin/Globulin Ratio 1.6 (1.0-2.8) TSH 1.23 (0.47-4.68) uIU/mL Free T4 1.37 (0.78-2.19) ng/dL Thyroxine (T4) 7.78 (5.5-11.0) ug/dL Free T3 5.50 H (2.77-5.27) pg/mL Serum , Qual (Negative) U Opiates 300ng/mL cut (Negative) Ur Oxycodone Screen (Negative) Urine Methadone Screen (Negative) Ur Barbiturates Screen (Negative) U Tricyclic Antidepress (Negative) Ur Phencyclidine Scrn (Negative) Ur Amphetamines Screen (Negative) U Methamphetamines Scrn (Negative) Ur MDMA Scrn (Ecstasy) (Negative) U Benzodiazepines Scrn (Negative) Urine Cocaine Screen (Negative) U Marijuana (THC) Screen (Negative) Chlamy pneumoniae PCR (Not Detect) Adenovirus (PCR) (Not Detect) B. pertussis DNA (PCR) (Not Detecte) B.parapertussis DNA PCR (Not Detecte) Coronavirus OC43 (PCR) (Not Detect) Coronavirus HKU1 (PCR) (Not Detect) Coronavirus 229E (PCR) (Not Detect) SARS-CoV-2 (PCR) (Not Detecte) Coronavirus NL63 (PCR) (Not Detect) Human Metapneumovir PCR (Not Detect) Influenza Type A (PCR) (Not Detect) Influenza Type B (PCR) (Not Detect) M. pneumoniae (PCR) (Not Detect) Parainfluenza 1 (PCR) (Not Detect) Parainfluenza 2 (PCR) (Not Detect) Parainfluenza 3 (PCR) (Not Detect) Parainfluenza 4 (PCR) (Not Detect) RSV (PCR) (Not Detect) Entero/Rhino (PCR) (Not Detect) 05/28/21 05/28/21 05/28/21 Range/Units 18:38 18:38 19:58 WBC (4.5-11.0) X10^3/uL RBC (4.0-5.2) X10^6/uL Hgb (12.0-16.0) g/dL Hct (36-46) % MCV (80-100) fL MCH (26-34) PG MCHC (30-36) % RDW (11.6-14.8) % Plt Count (150-400) X10^3/uL Neut % (Auto) (50-75) % Lymph % (Auto) (25-40) % [place] % (Auto) (3-14) % Eos % (Auto) (2-4) % Baso % (Auto) (0-2) % Neut # (Auto) (3640-8343) /uL Lymph # (Auto) (7866-0727) /uL [place] # (Auto) (0-900) /uL Eos # (Auto) (0-450) /uL Baso # (Auto) (0-100) /uL Sodium (137-145) mmol/L Potassium (3.4-5.1) mmol/L Chloride (98-107) mmol/L Carbon Dioxide (22-32) mmol/L BUN (7-17) mg/dL Creatinine (0.52-1.04) mg/dL Estimated GFR (>60) mL/min BUN/Creatinine Ratio (6-22) Glucose (70-100) mg/dL Calcium (8.4-10.2) mg/dL Magnesium 1.8 (1.6-2.3) mg/dL Total Bilirubin (0.2-1.3) mg/dL AST (14-36) IU/L ALT (<35) IU/L Alkaline Phosphatase (38-126) U/L Total Protein (6.3-8.2) g/dL Albumin (3.5-5.0) g/dL Globulin (1.7-4.1) g/dL Albumin/Globulin Ratio (1.0-2.8) TSH (0.47-4.68) uIU/mL Free T4 (0.78-2.19) ng/dL Thyroxine (T4) (5.5-11.0) ug/dL Free T3 (2.77-5.27) pg/mL Serum , Qual Negative (Negative) U Opiates 300ng/mL cut Negative (Negative) Ur Oxycodone Screen Negative (Negative) Urine Methadone Screen Negative (Negative) Ur Barbiturates Screen Negative (Negative) U Tricyclic Antidepress Negative (Negative) Ur Phencyclidine Scrn Negative (Negative) Ur Amphetamines Screen Negative (Negative) U Methamphetamines Scrn Negative (Negative) Ur MDMA Scrn (Ecstasy) Negative (Negative) U Benzodiazepines Scrn Negative (Negative) Urine Cocaine Screen Negative (Negative) U Marijuana (THC) Screen Positive H (Negative) Chlamy pneumoniae PCR (Not Detect) Adenovirus (PCR) (Not Detect) B. pertussis DNA (PCR) (Not Detecte) B.parapertussis DNA PCR (Not Detecte) Coronavirus OC43 (PCR) (Not Detect) Coronavirus HKU1 (PCR) (Not Detect) Coronavirus 229E (PCR) (Not Detect) SARS-CoV-2 (PCR) (Not Detecte) Coronavirus NL63 (PCR) (Not Detect) Human Metapneumovir PCR (Not Detect) Influenza Type A (PCR) (Not Detect) Influenza Type B (PCR) (Not Detect) M. pneumoniae (PCR) (Not Detect) Parainfluenza 1 (PCR) (Not Detect) Parainfluenza 2 (PCR) (Not Detect) Parainfluenza 3 (PCR) (Not Detect) Parainfluenza 4 (PCR) (Not Detect) RSV (PCR) (Not Detect) Entero/Rhino (PCR) (Not Detect) 05/28/21 05/28/21 Range/Units 21:00 21:00 WBC (4.5-11.0) X10^3/uL RBC (4.0-5.2) X10^6/uL Hgb (12.0-16.0) g/dL Hct (36-46) % MCV (80-100) fL MCH (26-34) PG MCHC (30-36) % RDW (11.6-14.8) % Plt Count (150-400) X10^3/uL Neut % (Auto) (50-75) % Lymph % (Auto) (25-40) % [place] % (Auto) (3-14) % Eos % (Auto) (2-4) % Baso % (Auto) (0-2) % Neut # (Auto) (7025-6494) /uL Lymph # (Auto) (8919-9321) /uL [place] # (Auto) (0-900) /uL Eos # (Auto) (0-450) /uL Baso # (Auto) (0-100) /uL Sodium (137-145) mmol/L Potassium (3.4-5.1) mmol/L Chloride (98-107) mmol/L Carbon Dioxide (22-32) mmol/L BUN (7-17) mg/dL Creatinine (0.52-1.04) mg/dL Estimated GFR (>60) mL/min BUN/Creatinine Ratio (6-22) Glucose (70-100) mg/dL Calcium (8.4-10.2) mg/dL Magnesium (1.6-2.3) mg/dL Total Bilirubin (0.2-1.3) mg/dL AST (14-36) IU/L ALT (<35) IU/L Alkaline Phosphatase (38-126) U/L Total Protein (6.3-8.2) g/dL Albumin (3.5-5.0) g/dL Globulin (1.7-4.1) g/dL Albumin/Globulin Ratio (1.0-2.8) TSH (0.47-4.68) uIU/mL Free T4 (0.78-2.19) ng/dL Thyroxine (T4) (5.5-11.0) ug/dL Free T3 (2.77-5.27) pg/mL Serum , Qual (Negative) U Opiates 300ng/mL cut (Negative) Ur Oxycodone Screen (Negative) Urine Methadone Screen (Negative) Ur Barbiturates Screen (Negative) U Tricyclic Antidepress (Negative) Ur Phencyclidine Scrn (Negative) Ur Amphetamines Screen (Negative) U Methamphetamines Scrn (Negative) Ur MDMA Scrn (Ecstasy) (Negative) U Benzodiazepines Scrn (Negative) Urine Cocaine Screen (Negative) U Marijuana (THC) Screen (Negative) Chlamy pneumoniae PCR Not detected (Not Detect) Adenovirus (PCR) Not detected (Not Detect) B. pertussis DNA (PCR) Not detected (Not Detecte) B.parapertussis DNA PCR Not detected (Not Detecte) Coronavirus OC43 (PCR) Not detected (Not Detect) Coronavirus HKU1 (PCR) Not detected (Not Detect) Coronavirus 229E (PCR) Not detected (Not Detect) SARS-CoV-2 (PCR) Not detected Negative (Not Detecte) Coronavirus NL63 (PCR) Not detected (Not Detect) Human Metapneumovir PCR Not detected (Not Detect) Influenza Type A (PCR) Not detected (Not Detect) Influenza Type B (PCR) Not detected (Not Detect) M. pneumoniae (PCR) Not detected (Not Detect) Parainfluenza 1 (PCR) Not detected (Not Detect) Parainfluenza 2 (PCR) Not detected (Not Detect) Parainfluenza 3 (PCR) Not detected (Not Detect) Parainfluenza 4 (PCR) Not detected (Not Detect) RSV (PCR) Not detected (Not Detect) Entero/Rhino (PCR) Not detected (Not Detect) Point of Care Testing Test Results Negative Urine Dip Bedside Urine Glucose Negative Bedside Urine Bilirubin - Negative Bedside Urine Ketone - Negative Urine Specific [place] 1.015 Bedside Urine Occult Blood - Negative Bedside Urine pH 7.0 Bedside Urine Protein - Negative Bedside Urine Urobilinogen - Negative Bedside Urine Nitrite - Negative Bedside Urine Leukocytes - Negative Esterase Imaging Data CT scan - head: Radiologist's Impression: [place] [address] CT Scan Report Signed Patient: Marcelina Montgomery MR#: [id number] : 1985 Acct:[id number] Age/Sex: 36 / F Date of Service: 05/28/21 Loc: ED Accession Number: [id number] ?? Procedure: CT head/brain wo con Ordering Provider: Olvin Obando MD PROCEDURE:? CT HEAD/BRAIN WO CON ? INDICATIONS:? Headache ? TECHNIQUE:? Noncontrast 4.5 mm thick angled axial sections acquired from the foramen magnum to the vertex, with coronal and sagittal reformats.? For radiation dose reduction, the following was used:? automated exposure control, adjustment of mA and/or kV according to patient size.? ? COMPARISON:? None. ? FINDINGS:? Image quality:? Excellent.? ? CSF spaces:? Basal cisterns are patent.? No extra-axial fluid collections.? Ventricles are normal in size and shape.? ? Brain:? No midline shift.? No intracranial masses or hemorrhage.? Shaikh-white matter interface is normal.? ? Skull and face:? Calvarium and visualized facial bones are intact, without suspicious lesions.? ? Sinuses:? Visualized sinuses and mastoids are clear.? ? IMPRESSION:? ? 1. No acute intracranial process. ? ? Dictated by: Kera Freed M.D. on 05/28/2021 at 20:00 ? ? Approved by: Kera Freed M.D. on 05/28/2021 at 20:01 ? CT scan - chest: Radiologist's Impression: Read by overnight radiologist impression normal CTA of the chest. ECG Data Interpretation: Sinus tachycardia rate 113 otherwise normal EKG MDM Narrative Medical decision making narrative: Appropriate for discharge home. Imaging and laboratory studies are reassuring. Heart rate improved with IV hydration. Prescribing patient Zofran for nausea. Giving patient referral for primary care to follow up and referral for outpatient for MRI of the brain and spinal cord. Discharge Plan Departure Patient Disposition: Home Clinical Impression: Acute vomiting Instructions: DI for Dehydration -- Adult, DI for Vomiting -- Adult Activity Restrictions/Additional Instructions: Call provided primary care referral number in the morning to obtain family doctor and for re-evaluation and for possible outpatient MRI of the brain and spinal cord. May continue home medications. Return if worse if any questions or concerns. Keep well hydrated. Prescriptions: New ondansetron 4 mg tablet,disintegrating 4 mg PO Q8H PRN (Reason: nausea and vomiting) Qty: 10 RF: 0 No Action Flovent HFA 44 mcg/actuation HFA aerosol inhaler 1 inhalation INHALATION BID Qty: 10.6 RF: 0 nitrofurantoin monohyd/m-cryst [Macrobid] 100 mg capsule 100 mg PO BID Qty: 9 RF: 0 Referrals: [facility] [Outside]
[2021-05-28] MEDS: ONDANSETRON 4 MG/2 ML INJ IV (19:16)
--- NOTE | 2021-05-28 19:27 | DI.CT.S_ITS ---
PROCEDURE: CT HEAD/BRAIN WO CON INDICATIONS: Headache TECHNIQUE: Noncontrast 4.5 mm thick angled axial sections acquired from the foramen magnum to the vertex, with coronal and sagittal reformats. For radiation dose reduction, the following was used: automated exposure control, adjustment of mA and/or kV according to patient size. COMPARISON: None. FINDINGS: Image quality: Excellent. CSF spaces: Basal cisterns are patent. No extra-axial fluid collections. Ventricles are normal in size and shape. Brain: No midline shift. No intracranial masses or hemorrhage. Shaikh-white matter interface is normal. Skull and face: Calvarium and visualized facial bones are intact, without suspicious lesions. Sinuses: Visualized sinuses and mastoids are clear. IMPRESSION: 1. No acute intracranial process. Dictated by: Kera Freed M.D. on 05/28/2021 at 20:00 Approved by: Kera Freed M.D. on 05/28/2021 at 20:01
[2021-05-28 19:37] LABS: Add Manual Diff / Slide Review NO; Basophils Absolute Auto 100 /uL (0-100); Basophils Percent Auto 0.9 % (0-2); Eosinophils Absolute Auto 100 /uL (0-450); Hematocrit 43.6 % (36-46); Hemoglobin 14.9 g/dL (12.0-16.0); Lymphocytes Absolute Auto 1700 /uL (1100-4500); Lymphocytes Percent Auto 27.1 % (25-40); Mean Corpuscular HGB Conc 34.1 % (30-36); Mean Corpuscular Hemoglobin 30.7 PG (26-34); Mean Corpuscular Volume 89.9 fL (80-100); Monocytes Absolute Auto 400 /uL (0-900); Monocytes Percent Auto 6.1 % (3-14); Neutrophils Absolute Auto 4000 /uL (1500-7000); Neutrophils Percent Auto 64.9 % (50-75); Platelet Count 302 X10^3/uL (150-400); Red Blood Cell Count 4.85 X10^6/uL (4.0-5.2); Red Cell Distribution Width 12.6 % (11.6-14.8); White Blood Cell Count 6.2 X10^3/uL (4.5-11.0)
[2021-05-28 19:44] LABS: Alanine Aminotransferase 79 IU/L (<35); Albumin Globulin Ratio 1.6 (1.0-2.8); Alkaline Phosphatase 55 U/L (38-126); Aspartate Aminotransferase 46 IU/L (14-36); BUN Creatinine Ratio 18.1 (6-22); Bilirubin Total 1.3 mg/dL (0.2-1.3); Blood Urea Nitrogen 13 mg/dL (7-17); Calcium 9.4 mg/dL (8.4-10.2); Carbon Dioxide 29 mmol/L (22-32); Chloride 102 mmol/L (98-107); Estimated Glomerular Filt Rate > 60.0 mL/min (>60); Globulin 3.1 g/dL (1.7-4.1); Glucose 114 mg/dL (70-100); HEMOLYSIS < 15 (0-50); Magnesium 1.8 mg/dL (1.6-2.3); Potassium 3.3 mmol/L (3.4-5.1); Sodium 140 mmol/L (137-145); Total Protein 8.1 g/dL (6.3-8.2)
[2021-05-28 19:50] LABS: Pregnancy Test Serum,Qual Negative (Negative)
[2021-05-28 20:12] LABS: Free T4, Direct Thyroxine 1.37 ng/dL (0.78-2.19); T4 Total Thyroxine 7.78 ug/dL (5.5-11.0)
[2021-05-28 20:25] LABS: Thyroid Stimulating Hormone 1.23 uIU/mL (0.47-4.68)
--- NOTE | 2021-05-28 21:54 | DI.CT.S_ITS ---
PROCEDURE: CT ANGIO CHEST PE PROTOCOL INDICATIONS: Chest pain TECHNIQUE: After the administration of intravenous contrast, 2 mm thick sections acquired from the pulmonary apices to the posterior costophrenic angles. 3-dimensional maximum intensity projection (MIP) coronal and sagittal reformats were then acquired through the thorax. For radiation dose reduction, the following was used: automated exposure control, adjustment of mA and/or kV according to patient size. COMPARISON: None. FINDINGS: Image quality: Excellent. Pulmonary arteries: Pulmonary arteries are normal in size, and demonstrate no intraluminal filling defects to suggest central pulmonary embolism. Lungs and pleura: Lungs are clear. Subsegmental atelectasis noted in the posterior aspect of the right lung apex. No pleural effusions or pneumothorax. Central and peripheral airways are patent. Mediastinum: Heart size is normal, without pericardial effusion. No mediastinal or hilar adenopathy. Thoracic aorta is normal in caliber and enhancement. Esophagus is normal in caliber, without hiatal hernia. Bones and chest wall: No suspicious bony lesions. Ribs and thoracic spine appear intact throughout. Thyroid gland is within normal limits No axillary or supraclavicular adenopathy. Abdomen: Visualized upper abdominal solid organs appear normal in the early arterial phase of enhancement. IMPRESSION: 1. No pulmonary embolus. 2. No lung consolidation or pleural fluid collections. Dictated by: Griselda Worthington MD, PhD on 05/29/2021 at 7:08 Approved by: Griselda Worthington MD, PhD on 05/29/2021 at 7:12
[2021-05-28] MEDS: SODIUM CHLORIDE 0.9% 1,000 ML 1000 ML IV (22:03)
[2021-05-28 22:09] LABS: UR Morphine/Opiate cutoff 300 Negative (Negative); Ur Creatinine Normal (Normal); Ur Specific Gravity Normal (Normal); Urine Amphetamines Negative (Negative); Urine Barbiturates Negative (Negative); Urine Benzodiazepines Negative (Negative); Urine Cocaine Negative (Negative); Urine MDMA Negative (Negative); Urine Methadone Negative (Negative); Urine Methamphetamines Negative (Negative); Urine Oxycodone Negative (Negative); Urine Phencyclidine Negative (Negative); Urine Tetrahydrocannabinol Positive (Negative); Urine Tricyclic Antidepressant Negative (Negative); Urine pH Normal (Normal)
[2021-05-28 22:23] LABS: Adenovirus Not Detected (Not Detect); B. parapertussis Not Detected (Not Detecte); Bordetella pertussis Not Detected (Not Detecte); Chlamydophila pneumoniae Not Detected (Not Detect); Coronavirus 229E Not Detected (Not Detect); Coronavirus HKU1 Not Detected (Not Detect); Coronavirus NL 63 Not Detected (Not Detect); Coronavirus OC43 Not Detected (Not Detect); Human Metapneumovirus Not Detected (Not Detect); Human Rhinovirus/Enterovirus Not Detected (Not Detect); Influenza A Not Detected (Not Detect); Influenza B Not Detected (Not Detect); Mycoplasma pneumoniae Not Detected (Not Detect); Parainfluenza Virus 1 Not Detected (Not Detect); Parainfluenza Virus 2 Not Detected (Not Detect); Parainfluenza Virus 3 Not Detected (Not Detect); Parainfluenza Virus 4 Not Detected (Not Detect); Respiratory Syncytial Virus Not Detected (Not Detect); SARS- CoV-2 Not Detected (Not Detecte)
[2021-05-28 23:27] LABS: COVID19 - ADMIT (NP swab/PCR) Negative (Negative)
== END 2021-05-28 23:53 | disposition home or self-care (01) ==
PROVIDERS: Emergency Provider Emergency Medicine
DX: R51.9 Headache, unspecified (principal); R19.7 Diarrhea, unspecified; R11.2 Nausea with vomiting, unspecified; Z20.822 Contact with and (suspected) exposure to COVID-19
CPT/HCPCS: 36415; 70450; 71275; 80053; 80305; 81003; 81025; 83735; 84436; 84439; 84443; 84481; 84703; 85025; 87633; 87635; 93005; 96374; 99284; C9803; J2405; Q9967

== ENCOUNTER 2022-02-18 10:58 | Emergency (ER) | payer OTHER, MEDICAID, SELFPAY ==
[2022-02-18 11:23] VITALS: BP 133/86; PULSE 111; RESP 15; TEMP 36.1; O2SAT 98; BMI 22.6
--- NOTE | 2022-02-18 14:56 | ED.EXTPRO ---
HPI - Extremity Problem <Kristi Espinoza, [facility] - Last Filed: 02/18/22 19:56> General Chief complaint: Extremity Problem,Nontraumatic Stated complaint: Migraine in back of head/neck, left leg pain Time Seen by Provider: 02/18/22 14:19 Source: patient Mode of arrival: Ambulatory History of Present Illness HPI Narrative: This is a 36-year-old female with history of POTS who presents to the emergency department complaining of left-sided leg pain that comes from her hip and radiates down her left leg to the bottom of her foot and this has been ongoing for the last three weeks. She states that she also had an IUD placed one month ago and has been having brown vaginal spotting since this happened, pelvic pain, and left-sided flank pain. She denies any nausea vomiting, states she has a history of cholecystectomy, appendectomy, all vaginal deliveries. States her last child was born two years ago. She denies any fever, nausea vomiting, shortness of breath, chest pain, endorses worsening left-sided leg pain and no a migraine, she also endorses bilateral neck and shoulder tension with muscle spasms. She endorses using marijuana, her primary care provider is Dr. Day at [facility] in [facility] and she has a follow-up appointment this week this for her IUD to check placement. Related Data Previous Rx's Medication Instructions Recorded fluticasone propionate 44 1 inhalation INHALATION BID #10.6 04/02/18 mcg/actuation HFA aerosol inhaler gram (Flovent HFA) nitrofurantoin 100 mg PO BID #9 cap 06/03/19 monohydrate/macrocrystals 100 mg capsule (Macrobid) ondansetron 4 mg disintegrating 4 mg PO Q8H PRN #10 tab 05/28/21 tablet cephalexin 500 mg capsule 500 mg PO BID 5 Days #10 cap 02/18/22 cyclobenzaprine 5 mg tablet 5 mg PO BID PRN #14 tab 02/18/22 diclofenac sodium 1 % topical gel 2 g TOPICAL QID PRN #100 g 02/18/22 Allergies Allergy/AdvReac Type Severity Reaction Status Date / Time ibuprofen [From Motrin] AdvReac Verified 02/18/22 11:23 Opioids - Morphine Analogues AdvReac Verified 02/18/22 11:23 Review of Systems <WILLIAM Mcrae - Last Filed: 02/18/22 19:56> Review of Systems Narrative: General: denies fever, chills Head/Neck: denies headache, neck pain Eyes: denies visual changes, eye pain Cardio: denies chest pain, palpitations Respiratory: denies shortness of breath, cough GI: denies abdominal pain, nausea, vomiting, or diarrhea : denies dysuria, hematuria or flank pain MSK: denies new joint pain, muscle weakness or swelling, endorses numbness and tingling with sharp hot pain that shoots down her left leg occasionally. She denies any trauma or injuries Skin: denies rash, itching or wound Neuro: denies numbness, tingling, dizziness Patient History <WILLIAM Mcrae - Last Filed: 02/18/22 19:56> Medical History (Updated 02/18/22 @ 17:15 by WILLIAM Mcrae) Asthma H/O ulcer disease POTS (postural orthostatic tachycardia syndrome) Surgical History Status post appendectomy Status post cholecystectomy Social History Smoking Status: Former smoker Smoking Status: Former smoker alcohol intake frequency: holidays/special occasions only Substance Use Type: marijuana Exam <WILLIAM Mcrae - Last Filed: 02/18/22 19:56> Narrative Exam Narrative: Independently reviewed vitals signs and nursing notes. General: Awake, alert, nontoxic, no cardiorespiratory distress Head/Neck: Atraumatic, neck supple Eyes: EOMI, conjunctiva normal Nose: nares patent, no rhinorrhea Mouth/Throat: moist mucus membranes, posterior pharynx without erythema or lesion Cardio: Regular rate and rhythm, no peripheral edema Respiratory: respirations unlabored without wheezing, stridor, or rales. No retractions, hypoxia or tachypnea GI: Abdomen soft, nontender to palpation x4 quadrants, no guarding or rebound tenderness, left-sided pelvic tenderness to palpation MSK: Moves all extremities, neurovascularly intact, range of motion without deficit Skin: Normal capillary refill, no rash Neuro: Normal speech and cognition, normal gait Initial Vital Signs Initial Vital Signs: Vital Signs Temperature 97.0 F L 02/18/22 11:23 Pulse Rate 111 H 02/18/22 11:23 Respiratory Rate 15 02/18/22 11:23 Blood Pressure 133/86 02/18/22 11:23 Pulse Oximetry 98 02/18/22 11:23 <Madiha Hurtado DO - Last Filed: 02/19/22 20:05> Initial Vital Signs Initial Vital Signs: Vital Signs Temperature 97.0 F L 02/18/22 11:23 Pulse Rate 111 H 02/18/22 11:23 Respiratory Rate 15 02/18/22 11:23 Blood Pressure 133/86 02/18/22 11:23 Pulse Oximetry 98 02/18/22 11:23 Course <WILLIAM Mcrae - Last Filed: 02/18/22 19:56> Orders Ordered: Discontinued Medications Acetaminophen (Acetaminophen 325 Mg Tablet) 975 mg PO NOW ONE Stop: 02/18/22 14:35 Last Admin: 02/18/22 15:26 Dose: 975 mg Documented by: ELICEO Cephalexin HCl (Cephalexin 250 Mg Capsule) 500 mg PO NOW ONE Stop: 02/18/22 17:11 Last Admin: 02/18/22 18:11 Dose: 500 mg Documented by: PHYLLIS Dexamethasone (Dexamethasone 10 Mg/Ml Vial) 8 mg IV NOW ONE Stop: 02/18/22 14:37 Last Admin: 02/18/22 15:27 Dose: 8 mg Documented by: ELICEO Diphenhydramine HCl (Diphenhydramine 50 Mg/Ml Vial) 25 mg IV NOW ONE Stop: 02/18/22 14:37 Last Admin: 02/18/22 15:27 Dose: 25 mg Documented by: ELICEO Sodium Chloride (Normal Saline 0.9%) 1,000 mls @ 1,000 mls/hr IV BOLUS ONE Stop: 02/18/22 15:33 Last Infusion: 02/18/22 17:44 Dose: 0 mls/hr Documented by: Admin: 02/18/22 15:28 Dose: 1,000 mls/hr Documented by: ELICEO Ketorolac Tromethamine (Ketorolac 30 Mg/Ml Vial) 15 mg IV NOW ONE Stop: 02/18/22 17:11 Last Admin: 02/18/22 17:56 Dose: 15 mg Documented by: PHYLLIS Ondansetron HCl (Ondansetron 4 Mg/2 Ml Inj) 4 mg IV NOW ONE Stop: 02/18/22 14:37 Last Admin: 02/18/22 15:27 Dose: 4 mg Documented by: ELICEO Vital Signs Vital signs: Vital Signs - 8 hr 02/18/22 16:27 02/18/22 16:30 02/18/22 17:00 Pulse Rate 85 84 85 Respiratory Rate 18 Blood Pressure 111/72 118/83 114/71 Pulse Oximetry 100 100 100 02/18/22 17:30 02/18/22 18:26 Pulse Rate 78 70 Respiratory Rate 18 Blood Pressure 95/55 L 110/60 Pulse Oximetry 99 98 <Madiha Hrutado DO - Last Filed: 02/19/22 20:05> Orders Ordered: Discontinued Medications Acetaminophen (Acetaminophen 325 Mg Tablet) 975 mg PO NOW ONE Stop: 02/18/22 14:35 Last Admin: 02/18/22 15:26 Dose: 975 mg Documented by: ELICEO Cephalexin HCl (Cephalexin 250 Mg Capsule) 500 mg PO NOW ONE Stop: 02/18/22 17:11 Last Admin: 02/18/22 18:11 Dose: 500 mg Documented by: PHYLLIS Dexamethasone (Dexamethasone 10 Mg/Ml Vial) 8 mg IV NOW ONE Stop: 02/18/22 14:37 Last Admin: 02/18/22 15:27 Dose: 8 mg Documented by: ELICEO Diphenhydramine HCl (Diphenhydramine 50 Mg/Ml Vial) 25 mg IV NOW ONE Stop: 02/18/22 14:37 Last Admin: 02/18/22 15:27 Dose: 25 mg Documented by: ELICEO Sodium Chloride (Normal Saline 0.9%) 1,000 mls @ 1,000 mls/hr IV BOLUS ONE Stop: 02/18/22 15:33 Last Infusion: 02/18/22 17:44 Dose: 0 mls/hr Documented by: Admin: 02/18/22 15:28 Dose: 1,000 mls/hr Documented by: ELICEO Ketorolac Tromethamine (Ketorolac 30 Mg/Ml Vial) 15 mg IV NOW ONE Stop: 02/18/22 17:11 Last Admin: 02/18/22 17:56 Dose: 15 mg Documented by: PHYLLIS Ondansetron HCl (Ondansetron 4 Mg/2 Ml Inj) 4 mg IV NOW ONE Stop: 02/18/22 14:37 Last Admin: 02/18/22 15:27 Dose: 4 mg Documented by: ELICEO Vital Signs Vital signs: Vital Signs - 8 hr 02/18/22 16:27 02/18/22 16:30 02/18/22 17:00 Pulse Rate 85 84 85 Respiratory Rate 18 Blood Pressure 111/72 118/83 114/71 Pulse Oximetry 100 100 100 02/18/22 17:30 02/18/22 18:26 Pulse Rate 78 70 Respiratory Rate 18 Blood Pressure 95/55 L 110/60 Pulse Oximetry 99 98 MDM - Extremity (Nontraumatic) <WILLIAM Mcrae - Last Filed: 02/18/22 19:56> Lab Data Result diagrams: 02/18/22 16:21 02/18/22 16:21 Labs: Lab Results 02/18/22 02/18/22 02/18/22 Range/Units 14:58 14:58 14:58 WBC (4.5-11.0) X10^3/uL RBC (4.0-5.2) X10^6/uL Hgb (12.0-16.0) g/dL Hct (36-46) % MCV (80-100) fL MCH (26-34) PG MCHC (30-36) % RDW (11.6-14.8) % Plt Count (150-400) X10^3/uL Neut % (Auto) (50-75) % Lymph % (Auto) (25-40) % [place] % (Auto) (3-14) % Eos % (Auto) (2-4) % Baso % (Auto) (0-2) % Neut # (Auto) (4416-2281) /uL Lymph # (Auto) (4042-9320) /uL [place] # (Auto) (0-900) /uL Eos # (Auto) (0-450) /uL Baso # (Auto) (0-100) /uL Sodium (137-145) mmol/L Potassium (3.4-5.1) mmol/L Chloride (98-107) mmol/L Carbon Dioxide (22-32) mmol/L BUN (7-17) mg/dL Creatinine (0.52-1.04) mg/dL Estimated GFR (>60) mL/min BUN/Creatinine Ratio (6-22) Glucose (70-100) mg/dL Calcium (8.4-10.2) mg/dL Total Bilirubin (0.2-1.3) mg/dL AST (14-36) IU/L ALT (<35) IU/L Alkaline Phosphatase (38-126) U/L Total Protein (6.3-8.2) g/dL Albumin (3.5-5.0) g/dL Globulin (1.7-4.1) g/dL Albumin/Globulin Ratio (1.0-2.8) Lipase (23-300) U/L Urine Color Yellow Urine Appearance Clear Urine pH 7.0 (4.5-8.0) Ur Specific [place] <=1.005 (1.000-1.035) Urine Protein Negative (Negative) Urine Glucose (UA) Negative (Negative) g/dL Urine Ketones Negative (NEGATIVE) Urine Occult Blood 1+ H (Negative) Urine Nitrate Negative (Negative) Urine Bilirubin Negative (NEGATIVE) Urine Urobilinogen 0.2 (0.2) E.U./dL Ur Leukocyte Esterase Negative (NEGATIVE) Urine RBC 0-1/hpf (0-5/HPF) Urine WBC None seen (0-5/HPF) Ur Squamous Epith Cells 1-5 /hpf (0-5/HPF) Urine Bacteria Few (2-10) H (None) Ur Culture Indicated? Cult not indicated Urine Test Negative (Negative) Ur Chlamydia DNA (PCR) Not detected SARS-CoV-2 (PCR) (Negative) N gonorrhoeae DNA (PCR) Not detected 02/18/22 02/18/22 02/18/22 Range/Units 16:07 16:21 16:21 WBC 6.1 (4.5-11.0) X10^3/uL RBC 4.63 (4.0-5.2) X10^6/uL Hgb 14.6 (12.0-16.0) g/dL Hct 40.9 (36-46) % MCV 88.4 (80-100) fL MCH 31.6 (26-34) PG MCHC 35.7 (30-36) % RDW 12.7 (11.6-14.8) % Plt Count 271 (150-400) X10^3/uL Neut % (Auto) 59.4 (50-75) % Lymph % (Auto) 32.8 (25-40) % [place] % (Auto) 5.2 (3-14) % Eos % (Auto) 1.4 L (2-4) % Baso % (Auto) 1.2 (0-2) % Neut # (Auto) 3600 (7851-4146) /uL Lymph # (Auto) 2000 (1930-6987) /uL [place] # (Auto) 300 (0-900) /uL Eos # (Auto) 100 (0-450) /uL Baso # (Auto) 100 (0-100) /uL Sodium 138 (137-145) mmol/L Potassium 3.5 (3.4-5.1) mmol/L Chloride 100 (98-107) mmol/L Carbon Dioxide 34 H (22-32) mmol/L BUN 4 L (7-17) mg/dL Creatinine 0.63 (0.52-1.04) mg/dL Estimated GFR > 60 (>60) mL/min BUN/Creatinine Ratio 6.3 (6-22) Glucose 112 H (70-100) mg/dL Calcium 9.1 (8.4-10.2) mg/dL Total Bilirubin 1.2 (0.2-1.3) mg/dL AST 24 (14-36) IU/L ALT 13 (<35) IU/L Alkaline Phosphatase 52 (38-126) U/L Total Protein 7.6 (6.3-8.2) g/dL Albumin 4.7 (3.5-5.0) g/dL Globulin 2.9 (1.7-4.1) g/dL Albumin/Globulin Ratio 1.6 (1.0-2.8) Lipase 117 (23-300) U/L Urine Color Urine Appearance Urine pH (4.5-8.0) Ur Specific [place] (1.000-1.035) Urine Protein (Negative) Urine Glucose (UA) (Negative) g/dL Urine Ketones (NEGATIVE) Urine Occult Blood (Negative) Urine Nitrate (Negative) Urine Bilirubin (NEGATIVE) Urine Urobilinogen (0.2) E.U./dL Ur Leukocyte Esterase (NEGATIVE) Urine RBC (0-5/HPF) Urine WBC (0-5/HPF) Ur Squamous Epith Cells (0-5/HPF) Urine Bacteria (None) Ur Culture Indicated? Urine Test (Negative) Ur Chlamydia DNA (PCR) SARS-CoV-2 (PCR) Negative (Negative) N gonorrhoeae DNA (PCR) Imaging Data lumbar xr: Radiologist's Impression: PROCEDURE:? XR LUMBAR SPINE 2-3V ? INDICATIONS:? sciatica ? TECHNIQUE:? 3 views of the lumbar spine were acquired.? ? COMPARISON:? None. ? FINDINGS:? ? Bones:? 5 [id number] vertebrae are present.? There is normal bony alignment.? No vertebral body compression fractures.? No suspicious bony lesions.? Mild L1-L2, L2-L3 and L3-L4 degenerative disc disease.? ? Soft tissues:? Overlying bowel gas pattern is normal.? No suspicious soft tissue calcifications.? Cholecystectomy clips.? IUD projects over the mid pelvis. ? ? IMPRESSION:? No fracture. No acute osseous lesion. If symptoms and/or clinical suspicion for pathology persists, evaluation with MRI should be considered for further assessment. ? Dictated by: Griselda Worthington MD, PhD on 02/18/2022 at 15:20 ? ? Approved by: Griselda Worthington MD, PhD on 02/18/2022 at 15:21 ? US - [employer]NER: Radiologist's Impression: PROCEDURE:? US PELVIC LIMITED ? INDICATIONS:? IUD PLACEMENT AND LEFT PELVIC PAIN ? TECHNIQUE:? Real-time transabdominal scanning was performed of the pelvic organs, with image documentation.? ? COMPARISON:? None. ? FINDINGS:? ? Uterus:? Uterus is anteverted and normal in size at 9.5 x 6.3 x 4.6 cm. The myometrium is homogeneous. ? The endometrium measures five mm combined thickness.? An IUD is situated appropriately in the uterine fundus.? The string is seen traversing the cervix. ? Ovaries:? The right ovary measures 3.2 x 2.8 x 1.5 cm, with a calculated ovarian volume of 7.0 cc. The left ovary measures 2.5 x 3.0 x 1.7 cm, with a calculated ovarian volume of 6.6 cc. The ovaries have a normal sonographic appearance. Less than 12 follicles can be seen in each ovary.? No adnexal masses are seen. ? Other:? No pathologic free abdominal or pelvic fluid. ? ? IMPRESSION:? ? 1. Normal uterus and ovaries. ? 2. Appropriate position of IUD.? We strive to produce accurate, complete, and clear reports of imaging services. To assist us in improving patient care, this report was composed using standard report templates and voice recognition software. Therefore, it may contain abnormal punctuation, insertions and/or omissions. Occasional wrong-word or sound-alike substitutions may occur. Though we review the report and make efforts to correct it, we do recommend that the report be read carefully in proper context to recognize any text inaccuracies. ? ? Dictated by: Zari Rios M.D. on 02/18/2022 at 16:23 ? ? Approved by: Zari Rios M.D. on 02/18/2022 at 16:26 ? MDM Narrative Medical decision making narrative: This is a 36-year-old female with history of POTS, cholecystectomy, appendectomy who presents to the emergency department complaining of left-sided sharp, hot pain which radiates down from her left hip occasionally. She denies any back injuries or low back pain but states that she has upper back and neck tightness and pain. She did not have any cervical, thoracic, or lumbar spinous process tenderness to palpation. She states that she has not had any fever, has not had nausea or vomiting, endorses ongoing pelvic pain since her IUD was placed approximately one month ago. She is a without any other abdominal surgeries other than her cholecystectomy and appendectomy. Wet prep completed as patient states she has been having vaginal discharge for one month since her IUD was placed. Wet prep does not have any white blood cells, clue cells, yeast or Trichomonas. Patient was treated for her in the emergency department with Toradol, lidocaine patch, she was treated for her migraine with 1 L of normal saline, dexamethasone, Toradol, Benadryl, Zofran, with improvement and resolution of her migraine. She states that her back pain was also improved. Lab work does not show any leukocytosis or left shift, no significant electrolyte abnormalities, no elevation to liver enzymes or lipase UA shows trace of blood microscopy shows few bacteria urine chlamydia and gonorrhea are negative, COVID PCR is negative today. Patient endorses having urinary symptoms with minor findings in her urine, urine culture is pending. Patient was treated for acute cystitis, sciatic leg pain and her migraine. She states that she feels much better and is ready to discharge home. She was prescribed Keflex for UTI, cyclobenzaprine and diclofenac gel for her back pain. Patient is appropriate and amenable to discharge home. Vital signs are stable on repeat examination is unremarkable. Patient has been informed of results. Patient has been given strict return to ER precautions for any new or worsening symptoms. Patient understands to follow up closely with outpatient providers as instructed. Patient understands plan and agrees to discharge home. All questions and concerns answered at this time. <Madiha Hurtado, DO - Last Filed: 02/19/22 20:05> Lab Data Labs: Lab Results 02/18/22 02/18/22 02/18/22 Range/Units 14:58 14:58 14:58 WBC (4.5-11.0) X10^3/uL RBC (4.0-5.2) X10^6/uL Hgb (12.0-16.0) g/dL Hct (36-46) % MCV (80-100) fL MCH (26-34) PG MCHC (30-36) % RDW (11.6-14.8) % Plt Count (150-400) X10^3/uL Neut % (Auto) (50-75) % Lymph % (Auto) (25-40) % [place] % (Auto) (3-14) % Eos % (Auto) (2-4) % Baso % (Auto) (0-2) % Neut # (Auto) (8381-1039) /uL Lymph # (Auto) (2369-6012) /uL [place] # (Auto) (0-900) /uL Eos # (Auto) (0-450) /uL Baso # (Auto) (0-100) /uL Sodium (137-145) mmol/L Potassium (3.4-5.1) mmol/L Chloride (98-107) mmol/L Carbon Dioxide (22-32) mmol/L BUN (7-17) mg/dL Creatinine (0.52-1.04) mg/dL Estimated GFR (>60) mL/min BUN/Creatinine Ratio (6-22) Glucose (70-100) mg/dL Calcium (8.4-10.2) mg/dL Total Bilirubin (0.2-1.3) mg/dL AST (14-36) IU/L ALT (<35) IU/L Alkaline Phosphatase (38-126) U/L Total Protein (6.3-8.2) g/dL Albumin (3.5-5.0) g/dL Globulin (1.7-4.1) g/dL Albumin/Globulin Ratio (1.0-2.8) Lipase (23-300) U/L Urine Color Yellow Urine Appearance Clear Urine pH 7.0 (4.5-8.0) Ur Specific [place] <=1.005 (1.000-1.035) Urine Protein Negative (Negative) Urine Glucose (UA) Negative (Negative) g/dL Urine Ketones Negative (NEGATIVE) Urine Occult Blood 1+ H (Negative) Urine Nitrate Negative (Negative) Urine Bilirubin Negative (NEGATIVE) Urine Urobilinogen 0.2 (0.2) E.U./dL Ur Leukocyte Esterase Negative (NEGATIVE) Urine RBC 0-1/hpf (0-5/HPF) Urine WBC None seen (0-5/HPF) Ur Squamous Epith Cells 1-5 /hpf (0-5/HPF) Urine Bacteria Few (2-10) H (None) Ur Culture Indicated? Cult not indicated Urine Test Negative (Negative) Ur Chlamydia DNA (PCR) Not detected SARS-CoV-2 (PCR) (Negative) N gonorrhoeae DNA (PCR) Not detected 02/18/22 02/18/22 02/18/22 Range/Units 16:07 16:21 16:21 WBC 6.1 (4.5-11.0) X10^3/uL RBC 4.63 (4.0-5.2) X10^6/uL Hgb 14.6 (12.0-16.0) g/dL Hct 40.9 (36-46) % MCV 88.4 (80-100) fL MCH 31.6 (26-34) PG MCHC 35.7 (30-36) % RDW 12.7 (11.6-14.8) % Plt Count 271 (150-400) X10^3/uL Neut % (Auto) 59.4 (50-75) % Lymph % (Auto) 32.8 (25-40) % [place] % (Auto) 5.2 (3-14) % Eos % (Auto) 1.4 L (2-4) % Baso % (Auto) 1.2 (0-2) % Neut # (Auto) 3600 (9114-4191) /uL Lymph # (Auto) 2000 (6285-4395) /uL [facility] # (Auto) 300 (0-900) /uL Eos # (Auto) 100 (0-450) /uL Baso # (Auto) 100 (0-100) /uL Sodium 138 (137-145) mmol/L Potassium 3.5 (3.4-5.1) mmol/L Chloride 100 (98-107) mmol/L Carbon Dioxide 34 H (22-32) mmol/L BUN 4 L (7-17) mg/dL Creatinine 0.63 (0.52-1.04) mg/dL Estimated GFR > 60 (>60) mL/min BUN/Creatinine Ratio 6.3 (6-22) Glucose 112 H (70-100) mg/dL Calcium 9.1 (8.4-10.2) mg/dL Total Bilirubin 1.2 (0.2-1.3) mg/dL AST 24 (14-36) IU/L ALT 13 (<35) IU/L Alkaline Phosphatase 52 (38-126) U/L Total Protein 7.6 (6.3-8.2) g/dL Albumin 4.7 (3.5-5.0) g/dL Globulin 2.9 (1.7-4.1) g/dL Albumin/Globulin Ratio 1.6 (1.0-2.8) Lipase 117 (23-300) U/L Urine Color Urine Appearance Urine pH (4.5-8.0) Ur Specific [place] (1.000-1.035) Urine Protein (Negative) Urine Glucose (UA) (Negative) g/dL Urine Ketones (NEGATIVE) Urine Occult Blood (Negative) Urine Nitrate (Negative) Urine Bilirubin (NEGATIVE) Urine Urobilinogen (0.2) E.U./dL Ur Leukocyte Esterase (NEGATIVE) Urine RBC (0-5/HPF) Urine WBC (0-5/HPF) Ur Squamous Epith Cells (0-5/HPF) Urine Bacteria (None) Ur Culture Indicated? Urine Test (Negative) Ur Chlamydia DNA (PCR) SARS-CoV-2 (PCR) Negative (Negative) N gonorrhoeae DNA (PCR) Discharge Plan Departure Patient Disposition: Home Clinical Impression: Sciatic leg pain Urinary tract infection Qualifiers: Urinary tract infection type: acute cystitis Hematuria presence: with hematuria Qualified Code(s): N30.01 - Acute cystitis with hematuria Migraine Qualifiers: Migraine type: unspecified Status migrainosus presence: without status migrainosus Intractability: not intractable Qualified Code(s): G43.909 - Migraine, unspecified, not intractable, without status migrainosus Instructions: Urinary Tract Infection, Migraine -- Adult, DI for Sciatica, DI for Back Pain With Sciatica Activity Restrictions/Additional Instructions: *You have been diagnosed with some degenerative disc disease in your lumbar vertebrae, this is like arthritis. It can flare up in cause sciatica which is that nerve pain down your leg. Please use Tylenol and ibuprofen as needed for your pain, use topical lidocaine patches or diclofenac gel for back soreness. Please use methocarbamol as needed for muscle spasms in your neck and shoulders or low back. Please take these antibiotics for the next five days to treat your urinary infection. Please use ibuprofen and Tylenol as needed for your pain, take this with food and water. Please use heat and ice for your low back to help calm down the irritated nerve. Please try and stay active with gentle activities like walking, no jarring motion or carrying heavy things or heavy activity, this will worsen her pain and sciatica. Your IUD was visualized by ultrasound in the correct position without any abnormal findings to your ovaries, IUD placement, or other problem with your female organs. Your urine today has blood and bacteria in it, the vaginal panel was negative for yeast, bacterial vaginosis, or other abnormal finding. Please follow-up at your IUD checkup, today it is in the correct place but if you are having ongoing symptoms, please discuss that. [facility], thank you for trusting us with your care, I hope you feel better soon. Your COVID test was negative today. *Please follow up with your primary care provider in 2-3 days, call for an appointment. Let them know you were seen in the Emergency Department and that we asked that you be seen for follow-up. We will electronically transmit a record of today's note if your PCP is in our system *If you do not have a primary care provider please contact [phone] to establish care with one of the [facility] primary care providers. *Return to Emergency Department if you should have any new, worsening or concerning symptoms, such as [fever greater than 101F, chills, worsening pain, persistent vomiting or other bothersome symptoms] Prescriptions: New cyclobenzaprine 5 mg tablet 5 mg PO BID PRN (Reason: muscle spasm) Qty: 14 0RF diclofenac sodium 1 % gel 2 g topical QID PRN (Reason: pain) Qty: 100 0RF Rx Instructions: apply to low back using applicator up to 4 times daily as needed for low back pain with sciatica cephalexin 500 mg capsule 500 mg PO BID 5 Days Qty: 10 0RF No Action Flovent HFA 44 mcg/actuation HFA aerosol inhaler 1 inhalation INHALATION BID Qty: 10.6 0RF ondansetron 4 mg tablet,disintegrating 4 mg PO Q8H PRN (Reason: nausea and vomiting) Qty: 10 0RF nitrofurantoin monohyd/m-cryst [Macrobid] 100 mg capsule 100 mg PO BID Qty: 9 0RF Rx Instructions: must administer with a meal/food Visit Report Forms: Patient Portal/API <Madiha Hurtado DO - Last Filed: 02/19/22 20:05> [facility] Attending Tundeature Attestation: I was immediately available in the department for consultation. Documentation has been reviewed.
--- NOTE | 2022-02-18 14:58 | DI.RAD.S_ITS ---
PROCEDURE: XR LUMBAR SPINE 2-3V INDICATIONS: sciatica TECHNIQUE: 3 views of the lumbar spine were acquired. COMPARISON: None. FINDINGS: Bones: 5 [id number] vertebrae are present. There is normal bony alignment. No vertebral body compression fractures. No suspicious bony lesions. Mild L1-L2, L2-L3 and L3-L4 degenerative disc disease. Soft tissues: Overlying bowel gas pattern is normal. No suspicious soft tissue calcifications. Cholecystectomy clips. IUD projects over the mid pelvis. IMPRESSION: No fracture. No acute osseous lesion. If symptoms and/or clinical suspicion for pathology persists, evaluation with MRI should be considered for further assessment. Dictated by: Griselda Worthington MD, PhD on 02/18/2022 at 15:20 Approved by: Griselda Worthington MD, PhD on 02/18/2022 at 15:21
--- NOTE | 2022-02-18 15:01 | DI.US.S_ITS ---
PROCEDURE: US PELVIC LIMITED INDICATIONS: IUD PLACEMENT AND LEFT PELVIC PAIN TECHNIQUE: Real-time transabdominal scanning was performed of the pelvic organs, with image documentation. COMPARISON: None. FINDINGS: Uterus: Uterus is anteverted and normal in size at 9.5 x 6.3 x 4.6 cm. The myometrium is homogeneous. The endometrium measures five mm combined thickness. An IUD is situated appropriately in the uterine fundus. The string is seen traversing the cervix. Ovaries: The right ovary measures 3.2 x 2.8 x 1.5 cm, with a calculated ovarian volume of 7.0 cc. The left ovary measures 2.5 x 3.0 x 1.7 cm, with a calculated ovarian volume of 6.6 cc. The ovaries have a normal sonographic appearance. Less than 12 follicles can be seen in each ovary. No adnexal masses are seen. Other: No pathologic free abdominal or pelvic fluid. IMPRESSION: 1. Normal uterus and ovaries. 2. Appropriate position of IUD. We strive to produce accurate, complete, and clear reports of imaging services. To assist us in improving patient care, this report was composed using standard report templates and voice recognition software. Therefore, it may contain abnormal punctuation, insertions and/or omissions. Occasional wrong-word or sound-alike substitutions may occur. Though we review the report and make efforts to correct it, we do recommend that the report be read carefully in proper context to recognize any text inaccuracies. Dictated by: Zari Rios M.D. on 02/18/2022 at 16:23 Approved by: Zari Rios M.D. on 02/18/2022 at 16:26
[2022-02-18 15:13] LABS: Pregnancy Test Urine Negative (Negative)
[2022-02-18] MEDS: ACETAMINOPHEN 325 MG TABLET 975 MG PO (15:26)
[2022-02-18] MEDS: diphenhydrAMINE 50 MG/ML VIAL 25 MG IV (15:27)
[2022-02-18] MEDS: DEXAMETHASONE 10 MG/ML VIAL 8 MG IV (15:27)
[2022-02-18] MEDS: ONDANSETRON 4 MG/2 ML INJ IV (15:27)
[2022-02-18] MEDS: SODIUM CHLORIDE 0.9% 1,000 ML 1000 ML IV (15:28)
[2022-02-18 16:00] LABS: Appearance Urine UA CLEAR; Bilirubin Urine UA NEGATIVE (NEGATIVE); Color Urine UA YELLOW; Glucose Urine UA NEGATIVE (Negative); Ketones Urine UA NEGATIVE (NEGATIVE); Leukocyte Esterase Urine UA NEGATIVE (NEGATIVE); Nitrite Urine UA NEGATIVE (Negative); Occult Blood Urine UA 1+ (Negative); Protein Urine UA NEGATIVE (Negative); Specific Gravity Urine UA <=1.005 (1.000-1.035); Urobilinogen Urine UA 0.2 E.U./dL (0.2)
[2022-02-18 16:01] LABS: Bacteria Urine Few (2-10); Culture Indicated Urine Cult Not Indicated; RBC Urine 0-1/HPF (0-5/HPF); Squamous Epithelial Cell Urine 1-5 /HPF (0-5/HPF); WBC Urine None Seen (0-5/HPF)
[2022-02-18 16:27] VITALS: BP 111/72; PULSE 85; RESP 18; O2SAT 100
[2022-02-18 16:30] VITALS: BP 118/83; PULSE 84; O2SAT 100
--- NOTE | 2022-02-18 16:35 | PC.NURSE ---
disregard right basilic di iv placement that documentation was done on wrong patient.
[2022-02-18 16:45] LABS: COVID19 -Nasal RAPID Negative (Negative)
[2022-02-18 16:49] LABS: Alanine Aminotransferase 13 IU/L (<35); Albumin 4.7 g/dL (3.5-5.0); Albumin Globulin Ratio 1.6 (1.0-2.8); Alkaline Phosphatase 52 U/L (38-126); Aspartate Aminotransferase 24 IU/L (14-36); BUN Creatinine Ratio 6.3 (6-22); Bilirubin Total 1.2 mg/dL (0.2-1.3); Blood Urea Nitrogen 4 mg/dL (7-17); Calcium 9.1 mg/dL (8.4-10.2); Carbon Dioxide 34 mmol/L (22-32); Chloride 100 mmol/L (98-107); Estimated Glomerular Filt Rate > 60 mL/min (>60); Globulin 2.9 g/dL (1.7-4.1); Glucose 112 mg/dL (70-100); HEMOLYSIS < 15 (0-50); Lipase 117 U/L (23-300); Potassium 3.5 mmol/L (3.4-5.1); Sodium 138 mmol/L (137-145); Total Protein 7.6 g/dL (6.3-8.2)
[2022-02-18 16:55] LABS: Add Manual Diff / Slide Review NO; Basophils Absolute Auto 100 /uL (0-100); Basophils Percent Auto 1.2 % (0-2); Eosinophils Absolute Auto 100 /uL (0-450); Eosinophils Percent Auto 1.4 % (2-4); Hematocrit 40.9 % (36-46); Hemoglobin 14.6 g/dL (12.0-16.0); Lymphocytes Absolute Auto 2000 /uL (1100-4500); Lymphocytes Percent Auto 32.8 % (25-40); Mean Corpuscular HGB Conc 35.7 % (30-36); Mean Corpuscular Hemoglobin 31.6 PG (26-34); Mean Corpuscular Volume 88.4 fL (80-100); Monocytes Absolute Auto 300 /uL (0-900); Monocytes Percent Auto 5.2 % (3-14); Neutrophils Absolute Auto 3600 /uL (1500-7000); Neutrophils Percent Auto 59.4 % (50-75); Platelet Count 271 X10^3/uL (150-400); Red Blood Cell Count 4.63 X10^6/uL (4.0-5.2); Red Cell Distribution Width 12.7 % (11.6-14.8); White Blood Cell Count 6.1 X10^3/uL (4.5-11.0)
[2022-02-18 17:00] VITALS: BP 114/71; PULSE 85; O2SAT 100
[2022-02-18 17:07] LABS: Urine N gonorrhoeae NOT DETECTED
[2022-02-18 17:09] LABS: Urine Chlamydia NOT DETECTED
[2022-02-18 17:30] VITALS: BP 95/55; PULSE 78; O2SAT 99
[2022-02-18] MEDS: KETOROLAC 30 MG/ML VIAL 15 MG IV (17:56)
[2022-02-18] MEDS: cephALEXin 250 MG CAPSULE 500 MG PO (18:11)
[2022-02-18 18:26] VITALS: BP 110/60; PULSE 70; RESP 18; O2SAT 98
== END 2022-02-18 18:32 | disposition home or self-care (01) ==
PROVIDERS: Emergency Provider Nurse Practitioner Critical Care Medicine
DX: M54.32 Sciatica, left side (principal); N30.01 Acute cystitis with hematuria; G43.909 Migraine, unspecified, not intractable, without status migrainosus; R10.2 Pelvic and perineal pain; Z20.822 Contact with and (suspected) exposure to COVID-19; Z97.5 Presence of (intrauterine) contraceptive device
CPT/HCPCS: 72100; 76830; 76857; 80053; 81001; 81025; 83690; 85025; 87086; 87210; 87491; 87591; 87635; 96361; 96374; 96375; 99284; C9803; J1100; J1200; J1885; J2405

== ENCOUNTER 2022-04-17 21:50 | Emergency (ER) | payer OTHER, MEDICAID, SELFPAY ==
[2022-04-17 22:19] VITALS: BP 113/70; PULSE 109; RESP 18; TEMP 36.8; O2SAT 100; BMI 22.8
[2022-04-18] VITALS (10 sets, daily range): BP systolic 102–119; BP diastolic 63–80; PULSE 71–108; RESP 16–20; O2SAT 55–100
--- NOTE | 2022-04-18 02:33 | ED_ITS ---
HPI - Back Pain/Injury <Brayan Rodriguez DO - Last Filed: 04/22/22 00:37> General Chief Complaint: Urogenital-Female Stated Complaint: back and left sided pain, numbness Time Seen by Provider: 04/18/22 02:47 Source: patient History of Present Illness HPI Narrative: 36F nonsmoker with history of known lumbar radiculopathy presents with a chief complaint of 3-4 days of increasing severe left lower back pain with radiation into her leg. She states she has occasional numbness and tingling but complains that her leg has become weak over the past few days. She is had chills but denies any fever. She denies any use of IV drugs or blood thinners. She has no runny nose, sore throat or cough. She denies any chest pain or shortness of br eath. She denies saddle anesthesia, loss of control of bowel or bladder. Related Data Previous Rx's Medication Instructions Recorded fluticasone propionate 44 1 inhalation inhalation BID #10.6 04/02/18 mcg/actuation HFA aerosol inhaler grams (Flovent HFA) nitrofurantoin 100 mg PO BID #9 caps 06/03/19 monohydrate/macrocrystals 100 mg capsule (Macrobid) ondansetron 4 mg disintegrating 4 mg PO Q8H PRN nausea and 05/28/21 tablet vomiting #10 tabs cyclobenzaprine 5 mg tablet 5 mg PO BID PRN muscle spasm #14 02/18/22 tabs diclofenac sodium 1 % topical gel 2 g topical QID PRN pain #100 grams 02/18/22 diclofenac sodium 1 % topical gel 2 g topical QID PRN pain #100 grams 04/18/22 (Arthritis Pain (diclofenac)) oxycodone 5 mg tablet 5 mg PO QID PRN pain #7 tabs 04/18/22 prednisone 20 mg tablet 40 mg PO DAILY 5 days #10 tabs 04/18/22 trazodone 50 mg tablet 50 mg PO BEDTIME PRN insomnia #10 04/18/22 tabs Allergies Allergy/AdvReac Type Severity Reaction Status Date / Time ibuprofen [From Motrin] AdvReac Verified 02/18/22 11:23 Opioids - Morphine Analogues AdvReac Verified 02/18/22 11:23 Review of Systems <Brayan Rodriguez DO - Last Filed: 04/22/22 00:37> Review of Systems Narrative: GENERAL: Denies chills, fatigue, malaise, fever, sweats. HEENT: Denies sinus pain, ear pain, sore throat, difficulty swallowing, dizziness. RESPIRATORY: Denies dyspnea, cough, wheezing, hemoptysis, sputum. CARDIOVASCULAR: Denies chest pain, palpitations, orthopnea, edema, GASTROINTESTINAL: Denies nausea, vomiting, abdominal pain, diarrhea, cons tipation, melena. : See HPI MUSCULOSKELETAL: See HPI SKIN: Denies rash, skin lesions, or other NEUROLOGIC: Denies weakness, headache, numbness, change in speech, confusion, seizures, incoordination. PSYCHIATRIC: No concerning psychosocial issues. 12 point review of systems is negative except for those stated above Patient History <Brayan Rodriguez DO - Last Filed: 04/22/22 00:37> Medical History (Updated 04/18/22 @ 09:05 by Madiha Hurtado DO) Asthma H/O ulcer disease POTS (postural orthostatic tachycardia syndrome) Surgical History Status post appendectomy Status post cholecystectomy Social History Smoking Status: Former smoker Smoking Status: Former smoker alcohol intake frequency: holidays/special occasions only Substance Use Type: marijuana Exam <Brayan Rodriguez DO - Last Filed: 04/22/22 00:37> Narrative Exam Narrative: GENERAL: [36] year old patient appears stated age. Well-developed patient, in mild distress. HEAD: Atraumatic. Normocephalic. EYES: Pupils equal round and reactive. Extraocular motions intact. No scleral icterus. No injection or drainage. ENT: Nose without bleeding, purulent drainage. Throat without erythema, tonsillar hypertrophy or exudate. Airway patent. NECK: Trachea midline. Non tender CARDIOVASCULAR: Regular rate and rhythm without murmurs, gallops, or rubs. RESPIRATORY: Clear to auscultation. Breath sounds equal bilaterally. No wheezes, rales, or rhonchi. GASTROINTESTINAL: Abdomen soft, non-tender, nondistended. EXTREMITIES: No edema or joint tenderness. BACK: No CVA tenderness, there is some left lower back pain but no step-offs, edema, crepitance. No saddle anesthesia. Bilateral patellar reflexes are 2+, right lower extremity strength 5/5, left lower extremity strength 3/5 NEURO: AOx3. SKIN: No rash or erythema of visible areas Initial Vital Signs Initial Vital Signs: Vital Signs Temperature 98.2 F 04/17/22 22:19 Pulse Rate 109 H 04/17/22 22:19 Respiratory Rate 18 04/17/22 22:19 Blood Pressure 113/70 04/17/22 22:19 Pulse Oximetry 100 04/17/22 22:19 Oxygen Delivery Method 04/17/22 22:19 <Madiha Hurtado DO - Last Filed: 04/18/22 19:40> Initial Vital Signs Initial Vital Signs: Vital Signs Temperature 98.2 F 04/17/22 22:19 Pulse Rate 109 H 04/17/22 22:19 Respiratory Rate 18 04/17/22 22:19 Blood Pressure 113/70 04/17/22 22:19 Pulse Oximetry 100 04/17/22 22:19 Oxygen Delivery Method 04/17/22 22:19 Course <Brayan Rodriguez DO - Last Filed: 04/22/22 00:37> Orders Ordered: Discontinued Medications Dexamethasone (Dexamethasone 10 Mg/Ml Vial) 10 mg IV NOW ONE Stop: 04/18/22 03:10 Last Admin: 04/18/22 03:42 Dose: 10 mg Documented By: HECTOR Sodium Chloride (Normal Saline 0.9%) 1,000 mls @ 1,000 mls/hr IV BOLUS ONE Stop: 04/18/22 03:46 Last Infusion: 04/18/22 05:36 Dose: 0 mls/hr Documented By: Admin: 04/18/22 03:42 Dose: 1,000 mls/hr Documented By: HECTOR Ketorolac Tromethamine (Ketorolac 30 Mg/Ml Vial) 15 mg IV NOW ONE Stop: 04/18/22 03:10 Last Admin: 04/18/22 03:42 Dose: 15 mg Documented By: HECTOR Morphine Sulfate (Morphine 4 Mg/Ml Inj) 4 mg IV NOW ONE Stop: 04/18/22 07:43 Last Admin: 04/18/22 07:49 Dose: 4 mg Documented By: HERNANDO Ondansetron HCl (Ondansetron 4 Mg/2 Ml Inj) 4 mg IV Q6HR PRN PRN Reason: Nausea And Vomiting Last Admin: 04/18/22 07:49 Dose: 4 mg Documented By: HERNANDO Oxycodone HCl (Oxycodone Ir 5 Mg Tablet) 10 mg PO NOW ONE Stop: 04/18/22 09:02 Last Admin: 04/18/22 09:08 Dose: 10 mg Documented By: HERNANDO Vital Signs Vital signs: Vital Signs - 8 hr 04/18/22 02:47 04/18/22 03:00 04/18/22 03:11 Pulse Rate 71 86 Respiratory Rate Blood Pressure 119/71 Pulse Oximetry 55 L 62 L 04/18/22 03:11 04/18/22 03:30 04/18/22 03:30 Pulse Rate 91 H 77 Respiratory Rate Blood Pressure 110/72 Pulse Oximetry 68 L 98 04/18/22 04:00 04/18/22 04:00 04/18/22 04:30 Pulse Rate 78 94 H Respiratory Rate 16 Blood Pressure 114/80 104/63 Pulse Oximetry 99 96 <Madiha Hurtado, - Last Filed: 04/18/22 19:40> Orders Ordered: Discontinued Medications Dexamethasone (Dexamethasone 10 Mg/Ml Vial) 10 mg IV NOW ONE Stop: 04/18/22 03:10 Last Admin: 04/18/22 03:42 Dose: 10 mg Documented By: HECTOR Sodium Chloride (Normal Saline 0.9%) 1,000 mls @ 1,000 mls/hr IV BOLUS ONE Stop: 04/18/22 03:46 Last Infusion: 04/18/22 05:36 Dose: 0 mls/hr Documented By: Admin: 04/18/22 03:42 Dose: 1,000 mls/hr Documented By: HECTOR Ketorolac Tromethamine (Ketorolac 30 Mg/Ml Vial) 15 mg IV NOW ONE Stop: 04/18/22 03:10 Last Admin: 04/18/22 03:42 Dose: 15 mg Documented By: HECTOR Morphine Sulfate (Morphine 4 Mg/Ml Inj) 4 mg IV NOW ONE Stop: 04/18/22 07:43 Last Admin: 04/18/22 07:49 Dose: 4 mg Documented By: HERNANDO Ondansetron HCl (Ondansetron 4 Mg/2 Ml Inj) 4 mg IV Q6HR PRN PRN Reason: Nausea And Vomiting Last Admin: 04/18/22 07:49 Dose: 4 mg Documented By: HERNANDO Oxycodone HCl (Oxycodone Ir 5 Mg Tablet) 10 mg PO NOW ONE Stop: 04/18/22 09:02 Last Admin: 04/18/22 09:08 Dose: 10 mg Documented By: HERNANDO Reevaluation(s) Reevaluation #1: Patient pain is improved with morphine but not resolved. Patient seen independently evaluated by myself. She have some mild weakness of the left lower extremity compared to right but has normal range of motion and gait on exam. Patient states no bowel incontinence, no saddle anesthesia she does get radiculopathy type changes down the left leg. She has not noticed any urinary incontinence but states sometimes her underwear smells a little bit like urine but she is not had large amounts of urine. Patient is on gabapentin but this is for epilepsy, she is on oral medication to help with sleep because of the pain but has not been on any daily pain medications. She follows with Dr. Lin for her primary care physician. Time: :02 Vital Signs Vital signs: Vital Signs - 8 hr 04/18/22 02:47 04/18/22 03:00 04/18/22 03:11 Pulse Rate 71 86 Respiratory Rate Blood Pressure 119/71 Pulse Oximetry 55 L 62 L 04/18/22 03:11 04/18/22 03:30 04/18/22 03:30 Pulse Rate 91 H 77 Respiratory Rate Blood Pressure 110/72 Pulse Oximetry 68 L 98 04/18/22 04:00 04/18/22 04:00 04/18/22 04:30 Pulse Rate 78 94 H Respiratory Rate 16 Blood Pressure 114/80 104/63 Pulse Oximetry 99 96 MDM - Back Pain/Injury <Brayan Rodriguez DO - Last Filed: 04/22/22 00:37> Lab Data Result diagrams: 04/18/22 03:10 04/18/22 03:10 Labs: Lab Results 04/18/22 04/18/22 04/18/22 Range/Units 03:10 03:10 03:10 WBC 7.1 (4.5-11.0) X10^3/uL RBC 4.36 (4.0-5.2) X10^6/uL Hgb 14.0 (12.0-16.0) g/dL Hct 38.9 (36-46) % MCV 89.2 (80-100) fL MCH 32.0 (26-34) PG MCHC 35.9 (30-36) % RDW 12.6 (11.6-14.8) % Plt Count 263 (150-400) X10^3/uL Neut % (Auto) 59.7 (50-75) % Lymph % (Auto) 31.1 (25-40) % [place] % (Auto) 6.4 (3-14) % Eos % (Auto) 1.9 L (2-4) % Baso % (Auto) 0.9 (0-2) % Neut # (Auto) 4200 (1652-5462) /uL Lymph # (Auto) 2200 (8131-2130) /uL [place] # (Auto) 500 (0-900) /uL Eos # (Auto) 100 (0-450) /uL Baso # (Auto) 100 (0-100) /uL Sodium 139 (137-145) mmol/L Potassium 3.8 (3.4-5.1) mmol/L Chloride 104 (98-107) mmol/L Carbon Dioxide 28 (22-32) mmol/L BUN 8 (7-17) mg/dL Creatinine 0.61 (0.52-1.04) mg/dL Estimated GFR > 60 (>60) mL/min BUN/Creatinine Ratio 13.1 (6-22) Glucose 103 H (70-100) mg/dL Lactate 0.9 (0.7-2.1) mmol/L Calcium 8.5 (8.4-10.2) mg/dL Total Bilirubin 0.9 (0.2-1.3) mg/dL AST 28 (14-36) IU/L ALT 19 (<35) IU/L Alkaline Phosphatase 47 (38-126) U/L C-Reactive Protein < 0.5 (<1.0) mg/dL Total Protein 7.3 (6.3-8.2) g/dL Albumin 4.5 (3.5-5.0) g/dL Globulin 2.8 (1.7-4.1) g/dL Albumin/Globulin Ratio 1.6 (1.0-2.8) SARS-CoV-2 (PCR) (Negative) 04/18/22 Range/Units 03:50 WBC (4.5-11.0) X10^3/uL RBC (4.0-5.2) X10^6/uL Hgb (12.0-16.0) g/dL Hct (36-46) % MCV (80-100) fL MCH (26-34) PG MCHC (30-36) % RDW (11.6-14.8) % Plt Count (150-400) X10^3/uL Neut % (Auto) (50-75) % Lymph % (Auto) (25-40) % [place] % (Auto) (3-14) % Eos % (Auto) (2-4) % Baso % (Auto) (0-2) % Neut # (Auto) (5106-1022) /uL Lymph # (Auto) (3272-4375) /uL [place] # (Auto) (0-900) /uL Eos # (Auto) (0-450) /uL Baso # (Auto) (0-100) /uL Sodium (137-145) mmol/L Potassium (3.4-5.1) mmol/L Chloride (98-107) mmol/L Carbon Dioxide (22-32) mmol/L BUN (7-17) mg/dL Creatinine (0.52-1.04) mg/dL Estimated GFR (>60) mL/min BUN/Creatinine Ratio (6-22) Glucose (70-100) mg/dL Lactate (0.7-2.1) mmol/L Calcium (8.4-10.2) mg/dL Total Bilirubin (0.2-1.3) mg/dL AST (14-36) IU/L ALT (<35) IU/L Alkaline Phosphatase (38-126) U/L C-Reactive Protein (<1.0) mg/dL Total Protein (6.3-8.2) g/dL Albumin (3.5-5.0) g/dL Globulin (1.7-4.1) g/dL Albumin/Globulin Ratio (1.0-2.8) SARS-CoV-2 (PCR) Negative (Negative) Point of Care Testing Test Results Negative Urine Dip Bedside Urine Glucose Negative Bedside Urine Bilirubin - Negative Bedside Urine Ketone - Negative Urine Specific [place] 1.010 Bedside Urine Occult Blood - Negative Bedside Urine pH 7 Bedside Urine Protein - Negative Bedside Urine Urobilinogen - Negative Bedside Urine Nitrite - Negative Bedside Urine Leukocytes - Negative Esterase <Madiha Hurtado, DO - Last Filed: 04/18/22 19:40> Lab Data Labs: Lab Results 04/18/22 04/18/22 04/18/22 Range/Units 03:10 03:10 03:10 WBC 7.1 (4.5-11.0) X10^3/uL RBC 4.36 (4.0-5.2) X10^6/uL Hgb 14.0 (12.0-16.0) g/dL Hct 38.9 (36-46) % MCV 89.2 (80-100) fL MCH 32.0 (26-34) PG MCHC 35.9 (30-36) % RDW 12.6 (11.6-14.8) % Plt Count 263 (150-400) X10^3/uL Neut % (Auto) 59.7 (50-75) % Lymph % (Auto) 31.1 (25-40) % [place] % (Auto) 6.4 (3-14) % Eos % (Auto) 1.9 L (2-4) % Baso % (Auto) 0.9 (0-2) % Neut # (Auto) 4200 (9630-0079) /uL Lymph # (Auto) 2200 (1379-8281) /uL [place] # (Auto) 500 (0-900) /uL Eos # (Auto) 100 (0-450) /uL Baso # (Auto) 100 (0-100) /uL Sodium 139 (137-145) mmol/L Potassium 3.8 (3.4-5.1) mmol/L Chloride 104 (98-107) mmol/L Carbon Dioxide 28 (22-32) mmol/L BUN 8 (7-17) mg/dL Creatinine 0.61 (0.52-1.04) mg/dL Estimated GFR > 60 (>60) mL/min BUN/Creatinine Ratio 13.1 (6-22) Glucose 103 H (70-100) mg/dL Lactate 0.9 (0.7-2.1) mmol/L Calcium 8.5 (8.4-10.2) mg/dL Total Bilirubin 0.9 (0.2-1.3) mg/dL AST 28 (14-36) IU/L ALT 19 (<35) IU/L Alkaline Phosphatase 47 (38-126) U/L C-Reactive Protein < 0.5 (<1.0) mg/dL Total Protein 7.3 (6.3-8.2) g/dL Albumin 4.5 (3.5-5.0) g/dL Globulin 2.8 (1.7-4.1) g/dL Albumin/Globulin Ratio 1.6 (1.0-2.8) SARS-CoV-2 (PCR) (Negative) 04/18/22 Range/Units 03:50 WBC (4.5-11.0) X10^3/uL RBC (4.0-5.2) X10^6/uL Hgb (12.0-16.0) g/dL Hct (36-46) % MCV (80-100) fL MCH (26-34) PG MCHC (30-36) % RDW (11.6-14.8) % Plt Count (150-400) X10^3/uL Neut % (Auto) (50-75) % Lymph % (Auto) (25-40) % [place] % (Auto) (3-14) % Eos % (Auto) (2-4) % Baso % (Auto) (0-2) % Neut # (Auto) (5066-7340) /uL Lymph # (Auto) (2636-0622) /uL [place] # (Auto) (0-900) /uL Eos # (Auto) (0-450) /uL Baso # (Auto) (0-100) /uL Sodium (137-145) mmol/L Potassium (3.4-5.1) mmol/L Chloride (98-107) mmol/L Carbon Dioxide (22-32) mmol/L BUN (7-17) mg/dL Creatinine (0.52-1.04) mg/dL Estimated GFR (>60) mL/min BUN/Creatinine Ratio (6-22) Glucose (70-100) mg/dL Lactate (0.7-2.1) mmol/L Calcium (8.4-10.2) mg/dL Total Bilirubin (0.2-1.3) mg/dL AST (14-36) IU/L ALT (<35) IU/L Alkaline Phosphatase (38-126) U/L C-Reactive Protein (<1.0) mg/dL Total Protein (6.3-8.2) g/dL Albumin (3.5-5.0) g/dL Globulin (1.7-4.1) g/dL Albumin/Globulin Ratio (1.0-2.8) SARS-CoV-2 (PCR) Negative (Negative) Point of Care Testing Test Results Negative Urine Dip Bedside Urine Glucose Negative Bedside Urine Bilirubin - Negative Bedside Urine Ketone - Negative Urine Specific [place] 1.010 Bedside Urine Occult Blood - Negative Bedside Urine pH 7 Bedside Urine Protein - Negative Bedside Urine Urobilinogen - Negative Bedside Urine Nitrite - Negative Bedside Urine Leukocytes - Negative Esterase Imaging Data Lumbar MRI: Radiologist's Impression: [address] [address] Magnetic Resonance Report Signed Patient: Marcelina Montgomery MR#: [id number] : 1985 Acct:[id number] Age/Sex: 36 / F Date of Service: 04/18/22 Loc: ED Accession Number: [id number] ?? Procedure: MR lumbar spine wo con Ordering Provider: Brayan Rodriguez D.O. PROCEDURE:? MR LUMBAR SPINE WO CON ? INDICATIONS:? severe radicular pain with new leg weakness ? TECHNIQUE:? Noncontrast sagittal T1 spin echo and T2 fast echo, sagittal STIR, and T2 fast spin echo through the lumbar spine.? In cases with scoliosis, additional coronal T2 fast spin echo may be performed.? ? COMPARISON:? [facility], CT, CT ABDOMEN PELVIS W CON, 04/18/2022, 5:43. ? FINDINGS:? Image quality:? Excellent.? ? Alignment and Curvature:? There is normal bony alignment.? ? Bone Marrow:? Marrow is of normal overall signal.? No acute vertebral body compression fractures.? ? Spinal Cord:? Conus medullaris terminates at the L1-L2 level.? Visualized cord demonstrates normal signal and size.? ? Paraspinous Soft Tissues:? No paravertebral masses.? ? T12-L1:? Normal appearance.? ? L1-L2:? Normal appearance.? ? L2-L3:? Normal appearance.? ? L3-L4:? Normal appearance.? ? L4-L5:? Normal appearance.? ? L5-S1:? Normal appearance.? ? ? IMPRESSION:? Normal. ? No imaging explanation is found for this patient's presenting symptoms.? Dictated by: Jay Best M.D. on 04/18/2022 at 9:06 ? ? Approved by: Jay Best M.D. on 04/18/2022 at 9:07?? [facility] Narrative Medical decision making narrative: 04/18/22 Mank: This is a 36-year-old healthy female with known lumbar radiculopathy which she states started after delivery of her last child she states she had an epidural and during her delivery seemed to have some back issues and has had persistent initially just numbness down her thigh and then increasing pain and tingling down the leg. She presents today for increasing pain. Patient also had some lower abdominal discomfort she had CT which shows a right complex ovarian cyst but her pain is on the left side. She is nontender on examination for me. Her back exam and exam today she has some very mild weak ness of her left lower extremity but normal range of motion with no other red flag symptoms currently. Patient had labs, CT abdomen pelvis which shows a 2.8 cm complex cyst of the right ovary but no other major lab abnormalities negative and urinalysis. MRI L-spine was ordered and is currently pending when patient was signed out to myself by Dr. Rodriguez. Patient had minimal improvement with Toradol was given a dose of morphine which was helpful and a dose of oral narcotic afterwards. Lumbar spine MRI is negative. Patient has some mild weakness in her left lower extremity. She has had persistent symptoms for a long period of time so feel she is appropriate for discharge home and follow-up outpatient at this time. She is following with Hematology Oncology had some lab work drawn to evaluate for polycythemia vera and has repeat follow-up in the next week. Encouraged her to pursue this as well. If she is continuing to have persistent symptoms or changing symptoms with upper extremity or facial involvement discussed would recommend supratentorial imaging but her symptoms seem to be very localized to her lower back and she has pain making this far less likely. We did also review her CT findings and need for ultrasound. Plan for short course of oral steroids, pain medication and follow-up. Discharge Plan Departure Patient Disposition: Home Clinical Impression: Complex cyst of right ovary, Left lumbar radiculopathy Activity Restrictions/Additional Instructions: Please follow-up with your physician for recheck at your appointment on the . Your lumbar spine MRI today is negative and does not show any changes. Report is included with your paperwork there is also noted to have a right complex cyst by your ovary and you should follow up to have pelvic ultrasound in the next 4- 6 weeks. Talk with your physician they can order this. You may take steroids daily until gone. You can take Tylenol up to a 1000 mg every 6 hours as needed for pain. If in adequate for pain you can take 1-2 tablets of narcotic pain medication every 6 hours. You may use diclofenac to the affected area 4 times daily as needed. Prescription sent to [facility] in [place]. Please return for rapidly worsening weakness, loss of sensation, inability to lift or move your leg, loss of bowel or bladder control, persistent vomiting, severe headaches, new numbness, tingling or weakness of your upper extremities or face or other new or concerning symptoms Prescriptions: New prednisone 20 mg tablet 40 mg PO DAILY 5 Days Qty: 10 0RF diclofenac sodium [Arthritis Pain (diclofenac)] 1 % gel 2 g topical QID PRN (Reason: pain) Qty: 100 0RF Rx Instructions: apply to single elbow, wrist or hand; for hand includes palm/fingers/back of hand trazodone 50 mg tablet 50 mg PO BEDTIME PRN (Reason: insomnia) Qty: 10 0RF oxycodone 5 mg tablet 5 mg PO QID PRN (Reason: pain) Qty: 7 0RF No Action Flovent HFA 44 mcg/actuation HFA aerosol inhaler 1 inhalation INHALATION BID Qty: 10.6 0RF ondansetron 4 mg tablet,disintegrating 4 mg PO Q8H PRN (Reason: nausea and vomiting) Qty: 10 0RF nitrofurantoin monohyd/m-cryst [Macrobid] 100 mg capsule 100 mg PO BID Qty: 9 0RF Rx Instructions: must administer with a meal/food cyclobenzaprine 5 mg tablet 5 mg PO BID PRN (Reason: muscle spasm) Qty: 14 0RF diclofenac sodium 1 % gel 2 g topical QID PRN (Reason: pain) Qty: 100 0RF Rx Instructions: apply to low back using applicator up to 4 times daily as needed for low back pain with sciatica Referrals: Lashae Lin MD [Primary Care Provider] - Visit Report Forms: Patient Portal/API
[2022-04-18 03:21] LABS: Add Manual Diff / Slide Review NO; Basophils Absolute Auto 100 /uL (0-100); Basophils Percent Auto 0.9 % (0-2); Eosinophils Absolute Auto 100 /uL (0-450); Eosinophils Percent Auto 1.9 % (2-4); Hematocrit 38.9 % (36-46); Lymphocytes Absolute Auto 2200 /uL (1100-4500); Lymphocytes Percent Auto 31.1 % (25-40); Mean Corpuscular HGB Conc 35.9 % (30-36); Mean Corpuscular Volume 89.2 fL (80-100); Monocytes Absolute Auto 500 /uL (0-900); Monocytes Percent Auto 6.4 % (3-14); Neutrophils Absolute Auto 4200 /uL (1500-7000); Neutrophils Percent Auto 59.7 % (50-75); Platelet Count 263 X10^3/uL (150-400); Red Blood Cell Count 4.36 X10^6/uL (4.0-5.2); Red Cell Distribution Width 12.6 % (11.6-14.8); White Blood Cell Count 7.1 X10^3/uL (4.5-11.0)
[2022-04-18 03:30] LABS: Lactate (Lactic Acid) 0.9 mmol/L (0.7-2.1)
[2022-04-18 03:31] LABS: Alanine Aminotransferase 19 IU/L (<35); Albumin 4.5 g/dL (3.5-5.0); Albumin Globulin Ratio 1.6 (1.0-2.8); Alkaline Phosphatase 47 U/L (38-126); Aspartate Aminotransferase 28 IU/L (14-36); BUN Creatinine Ratio 13.1 (6-22); Bilirubin Total 0.9 mg/dL (0.2-1.3); Blood Urea Nitrogen 8 mg/dL (7-17); Calcium 8.5 mg/dL (8.4-10.2); Carbon Dioxide 28 mmol/L (22-32); Chloride 104 mmol/L (98-107); Estimated Glomerular Filt Rate > 60 mL/min (>60); Globulin 2.8 g/dL (1.7-4.1); Glucose 103 mg/dL (70-100); HEMOLYSIS < 15 (0-50); Potassium 3.8 mmol/L (3.4-5.1); Sodium 139 mmol/L (137-145); Total Protein 7.3 g/dL (6.3-8.2)
[2022-04-18 03:34] LABS: C-Reactive Protein Quant < 0.5 mg/dL (<1.0)
[2022-04-18] MEDS: SODIUM CHLORIDE 0.9% 1,000 ML 1000 ML IV (03:42)
[2022-04-18] MEDS: DEXAMETHASONE 10 MG/ML VIAL IV (03:42)
[2022-04-18] MEDS: KETOROLAC 30 MG/ML VIAL 15 MG IV (03:42)
[2022-04-18 04:13] LABS: COVID19 -Nasal RAPID Negative (Negative)
--- NOTE | 2022-04-18 04:47 | DI.MRI.S_ITS ---
PROCEDURE: MR LUMBAR SPINE WO CON INDICATIONS: severe radicular pain with new leg weakness TECHNIQUE: Noncontrast sagittal T1 spin echo and T2 fast echo, sagittal STIR, and T2 fast spin echo through the lumbar spine. In cases with scoliosis, additional coronal T2 fast spin echo may be performed. COMPARISON: [facility], CT, CT ABDOMEN PELVIS W CON, 04/18/2022, 5:43. FINDINGS: Image quality: Excellent. Alignment and Curvature: There is normal bony alignment. Bone Marrow: Marrow is of normal overall signal. No acute vertebral body compression fractures. Spinal Cord: Conus medullaris terminates at the L1-L2 level. Visualized cord demonstrates normal signal and size. Paraspinous Soft Tissues: No paravertebral masses. T12-L1: Normal appearance. L1-L2: Normal appearance. L2-L3: Normal appearance. L3-L4: Normal appearance. L4-L5: Normal appearance. L5-S1: Normal appearance. IMPRESSION: Normal. No imaging explanation is found for this patient's presenting symptoms. Dictated by: Jay Best M.D. on 04/18/2022 at 9:06 Approved by: Jay Best M.D. on 04/18/2022 at 9:07
--- NOTE | 2022-04-18 05:34 | DI.CT.S_ITS ---
PROCEDURE: CT ABDOMEN PELVIS W CON INDICATIONS: severe abdominal and flank pain TECHNIQUE: After the administration of IV contrast, axial sections were acquired from the lung bases to the pubic symphysis. Coronal and sagittal reformats were performed. For radiation dose reduction, the following was used: automated exposure control, adjustment of mA and/or kV according to patient size. COMPARISON: [facility], US, US PELVIC LIMITED, 02/18/2022, 16:15. [facility], CT, CT ANGIO CHEST PE PROTOCOL, 05/28/2021, 21:59. FINDINGS: Image quality: Excellent. Lung bases: Unremarkable. Heart: No significant findings. ABDOMEN: Liver: Unremarkable. Gallbladder: Removed. Biliary ducts: Unremarkable. Pancreas: Unremarkable. Spleen: Unremarkable. Adrenal Glands: Unremarkable. Kidneys and Ureters: Unremarkable. Stomach and Bowel: Stomach, small bowel loops, and colon are unremarkable. Apparent appendectomy change is seen. Mild distal colonic diverticulosis is seen, without findings of active diverticulitis. Peritoneum: No abnormal intraperitoneal fluid. No free air. Ventral Wall: No hernia. Abdominal Nodes: No retroperitoneal or mesenteric adenopathy by size criteria. Vessels: Aorta and inferior vena cava are normal in size. PELVIS: Pelvic Organs: The uterus is unremarkable. The IUD is seen at its expected location. There is a rim enhancing right ovarian cyst seen measuring 2.6 cm, as on series 2, image 74. Bladder: Unremarkable. Pelvic Nodes: No enlarged lymph nodes. Miscellaneous: No inguinal hernias are seen. Bones: Unremarkable. IMPRESSION: There is a right ovarian hemorrhagic cyst seen. If it would be clinically appropriate, a followup pelvic ultrasound could be considered in 6 weeks to assure resolution/ improvement. No additional cause of abdominal pain is seen. There is no hydronephrosis. Incidental note is made of: Cholecystectomy Diverticulosis, without active diverticulitis Appendectomy IUD at its expected location. Note: No significant discrepancy from the preliminary report. Dictated by: Jay Best M.D. on 04/18/2022 at 8:11 Approved by: Jay Best M.D. on 04/18/2022 at 8:21
--- NOTE | 2022-04-18 07:43 | PC.NURSE ---
pt in bed, in position, complaining of increased pain. MD notified. inquired about allergies; pt reports i am not really allergic to opiates or motrin, i don't know why that's there. orders to be placed by .
[2022-04-18] MEDS: MORPHINE 4 MG/ML INJ IV (07:49)
[2022-04-18] MEDS: ONDANSETRON 4 MG/2 ML INJ IV (07:49)
[2022-04-18] MEDS: OXYCODONE IR 5 MG TABLET 10 MG PO (09:08)
== END 2022-04-18 11:07 | disposition home or self-care (01) ==
PROVIDERS: Emergency Medicine; Emergency Provider Emergency Medicine; Family Provider Family Medicine; PCP Family Medicine
DX: N83.201 Unspecified ovarian cyst, right side (principal); M54.16 Radiculopathy, lumbar region; Z20.822 Contact with and (suspected) exposure to COVID-19
CPT/HCPCS: 36415; 72148; 74177; 80053; 81003; 81025; 83605; 85025; 86140; 87635; 96361; 96374; 96375; 99284; C9803; J1100; J1885; J2270; J2405; Q9967

== ENCOUNTER 2022-07-10 14:30 | Outpatient (RCR) | payer OTHER, MEDICAID, SELFPAY ==
--- NOTE | 2022-05-21 16:40 | PT.OIE ---
Current Diagnoses Stiffness of unspecified hip, not elsewhere classified (05/21/22) Radiculopathy, thoracolumbar region (05/21/22) Lumbago with sciatica, left side (05/21/22) Muscle weakness (generalized) (05/21/22) Past Medical History (Last Reviewed 04/18/22 @ 04:46 by Brayan Rodriguez DO) Asthma H/O ulcer disease POTS (postural orthostatic tachycardia syndrome) Past Surgical History (Last Reviewed 04/18/22 @ 04:46 by Brayan Rodriguez DO) Status post appendectomy Status post cholecystectomy Visit Care Team Role Provider Type Lashae Lin MD Attending Provider Non-Staff Family Provider Primary Care Provider Referring Provider Specialty: Medical Address: [address] [place] [address], [id number] Email: Physical Therapy Initial Evaluation PT-OP-A Visit Information Start: 05/18/22 17:26 Freq: Status: Active Protocol: Document 05/21/22 14:44 LRN (Rec: 05/21/22 16:33 LRN [id number]) Out-Patient Physical Therapy Visit Information Visit Information Visit Type Initial Evaluation Visit Start Time 14:44 Visit Stop Time 15:43 Total Visit Minutes 59 Visit Number 1 Evaluation Information Evaluation Date 05/21/22 Precautions Precautions POTS also causing dizziness 7 yrs ago, dizziness onset with dehydration, Blood clots in proximal R lower leg 7 yrs ago, seizures controlled by medications, Neck injury 7 yrs ago. Childbirth 3 yrs ago (3 chidren - 16, 8, 2.5 yrs old) , states she was anorexic prior to pregnancies. PT-OP-B Current Condition Start: 05/18/22 17:26 Freq: Status: Active Protocol: Document 05/21/22 14:44 LRN (Rec: 05/21/22 16:33 LRN [id number]) Current Condition History of Current Condition Onset Date 10 months ago Current Complaints L sided body pain, today pain most in posterior L shoulder. History of Current Condition Insidious onset of L sided posterior thigh and hip pain, radiating into back and the entire body 9 months ago, sometimes worse depending on which side she sleeps. States the pain is all over but varies depending on the day and the way she sleeps. If her pain doesn't get better with PT, she will be referred to a pedigree tracer. Sometimes she has trouble with her Bowel and Bladder. Sometimes can't wait when needing to have BM. Because of her POTS she drinks a lot of liquids and urinates a lot and leaks urine, usually on waking and when she has severe pain in the entire L side of her body. She states she has fainted and once landed on her jaw and had to wear a neck brace for 2 months, and deniesfracture of cervical spine. otherwise she has no recall of incident or injury associated to her L sided body pain. At the time of her recovering from her fall, she had tingling in her hands and after recovery she reports she had weakness in her arms and developed POTS. She has L hip pain with sex, so with stopping, feels she is worse. Prior Treatments and Tests CT scan and MRI @ 1 month ago due to concerns of cancer in the blood, but was found to be negative for cancer. MD has told her she has arthritis. Next MD appt will be after PT program. Developmental History Developmental History Pt is R handed. 2019 fell on back skating but didn't have any pain. Baby born 08/30/2017. During had L leg pain and posterior shoulder pain. Had an epidural but the injection was not able to fully go in due to the curvature of her spine. Lying down her entire back hurt. By end of she could hardly move. Treatment Goals Patient/Caregiver Goals Pt goal is to be able to sleep better, stay asleep and not have to wake every 2-3 hours. Current Functional Impairments (Reported) Functional Limitations- ADL's Wakes every 2-3 hours in the night. With a new pillow she can now sleep 5 hrs but has difficulty falling to sleep. She has most pain lying down or sitting. Mostly during the day she doesn't notice the pain. She is tired during the day due to lack of sleep. 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 PT-OP-C Subjective Start: 05/18/22 17:26 Freq: Status: Active Protocol: Document 05/21/22 14:44 LRN (Rec: 05/21/22 16:33 LRN [id number]) Patient Questionnaires Oswestry Low Back Index Oswestry Score 28 Oswestry Impairment 20 to 39% Impaired (Score 20- 39) OP-PT Pain Assessment Pain Assessment Grid Paper Pain Assessment Grid Completed Yes Location Posterior L shoulder Pain Location Details Posterior L shoulder Intensity 5 Scale Used Numeric (0 - 10) Description Aching,Stabbing,Throbbing Description- Other Bone stabbing her skin Frequency Constant Pain Duration Sharp when laying down, aches constant Other Pain Aggravating Factors Lying down Other Pain Alleviating Factors Sodium Gel L LB Pain Location Details L LB/Hip and proximal thigh Intensity 9 Scale Used Numeric (0 - 10) Description Aching Frequency Intermittent Other Pain Alleviating Factors Naproxin when pain is strongest, rated 9/10. PT-OP-H Neuro Start: 05/18/22 17:26 Freq: Status: Active Protocol: Document 05/21/22 14:44 LRN (Rec: 05/21/22 16:33 LRN [id number]) Sensation Evaluation Gross Sensation Gross Sensation Right LE Impaired Sensation Description Numbness Comments Summary Comments Numbness in L lateral thigh, ~ 2 wide strip between knee and hip. Deep Tendon Reflex & Clonus Assessment Deep Tendon Reflex Bilateral Achilles Deep Tendon Reflex 3+ Normal But Brisk Bilateral Patellar Deep Tendon Reflex 3+ Normal But Brisk PT-OP-J Posture/Palpation/Skin Start: 05/18/22 17:26 Freq: Status: Active Protocol: Document 05/21/22 14:44 LRN (Rec: 05/21/22 16:33 LRN [id number]) Posture Evaluation Position Standing L-Spine Posture Increased Lordosis,Shifted Right Shoulder Posture (L) Elevated Shoulder Subluxation Position (L) Posterior Scapula Posture (R) Rotated Up,(R) Depressed Arm Posture (L) Internally Rotated,(R) Internally Rotated Pelvis Posture (L) Iliac Crest Superior Comments Posture Comments Dowagers Hump, posterior L PSIS. Palpation Assessment Location Obturator Internus Palpation Location Tender Left on external palpation. Palpation Findings Tenderness Posterior L shoulder Palpation Location No tenderness Low Back Palpation Location No tenderness PT-OP-K Range of Motion Start: 05/18/22 17:26 Freq: Status: Active Protocol: Document 05/21/22 14:44 LRN (Rec: 05/21/22 16:33 LRN [id number]) Lumbar Spine Range of Motion Lumbar Spine Active Degrees Testing Position Standing Flexion 90 Extension 18 Comments 90/55 18/5 Held further testing due to dizziness from POTS. Hip Goniometric Range of Motion Hip Right Passive Testing Position Sitting Comments Sitting hip IR is ~45 deg's Left Passive Testing Position Sitting Comments Sitting hip IR is ~45 deg's PT-OP-L Special Tests Start: 05/18/22 17:26 Freq: Status: Active Protocol: Document 05/21/22 14:44 LRN (Rec: 05/21/22 16:33 LRN [id number]) Special Tests Lumbar Spine Special Tests Slump Test Results Increased pain in L posterior shoulder & L posterior thigh Comments + for possible lumbar involvement Standing Flexion Test Results Not tolerated Comments Onset of dizziness with forward bend due to POTs Vertical Spine Loading Test Results Negative Comments No c/o increased pain. PT-OP-M Strength Start: 05/18/22 17:26 Freq: Status: Active Protocol: Document 05/21/22 14:44 LRN (Rec: 05/21/22 16:33 LRN [id number]) Trunk Strength Trunk Manual Muscle Testing Lateral Flexion Right 4 Good Core Stabilization Lacks core stability with MMT of LE's. Hip Strength Hip Manual Muscle Testing Right Adduction 3 Fair External Rotation 3 Fair Internal Rotation 3 Fair Comments Generally 5/5 except as indicated above. Left External Rotation 5 Normal Comments Generally 3/5 except as indicated above. PT-OP-Q Treatments Start: 05/18/22 17:26 Freq: Status: Active Protocol: Document 05/21/22 14:44 LRN (Rec: 05/21/22 16:33 LRN [id number]) Self-Care/Home Management Treatment Education Other Education Discussed results of evaluation, goals, and plan of care (POC). Pt agreeable to goals and POC. PT-OP-T Assessment and Plan Start: 05/18/22 17:26 Freq: Status: Active Protocol: Document 05/21/22 14:44 LRN (Rec: 05/21/22 16:33 LRN [id number]) Physical Therapy Assessment Rehab Potential Rehabilitation Potential Excellent Evaluation Complexity Number of Personal Factors/Comorbidities 0 Impairments Impairments Activity Tolerance Goals Three Impairment Decrease pain Impairment L LBP when present is 9/10. L posterior shoulder pain is 5 -9/10. Short Term Goal (STG) Decrease low back and upper back pain to no greater than 6 /10. STG Duration 06/20/22 Facilities Maintenance Worker Goal (LTG) Improve symmetry of hip mobility compared to initial measurements to decrease pain, with pt able to sleep better, stay asleep and not have to wake every 2-3 hours (sleep >5 hours). LTG Duration 09/19/22 Two Impairment L sided weakness Impairment L hip strength is generally 3/ 5 except ER is 5/5; R hip is 5 /5 except AD/ER/IR is 3/5. Core weakness - pt not able to maintain core stability with hip strength testing. Short Term Goal (STG) Pt will improve L hip strength & R hip AD/ER/IR to 4/5. STG Duration 07/03/22 Facilities Maintenance Worker Goal (LTG) Pt will improve L hip and core strength to 4+ to 5/5 to decrease onset of L body sided pain to no greater than 3/5. LTG Duration 09/19/22 One Impairment Pt lacks a self care HEP. Short Term Goal (STG) Pt will be educated in proper sit, stand and nighttime posturing. STG Duration 05/29/22 Facilities Maintenance Worker Goal (LTG) Pt will be educated in a self care HEP. LTG Duration 09/19/22 Assessment Summary Assessment Pt presents with L body pain that appears postural related. Her symptoms worsens with sleeping and lessens with walking. She demonstrates general weakness of her L hip, decreased core strength, and limited mobility of her trunk (primarily due to POTS and increased in L sided body pain (primarily posterior shoulder pain today). Pt reports her pain is variable in nature and is worse at night. Jose has tenderness at her L Obturator Internus of the L hip that possibly is causing some of her radiating pain up to her back and down her posterior thigh. Her subjective history indicates soft tissue dysfunction related to her last as her symptoms at the time of were reported exacerbated at the time. The pt would benefit from physical therapy 2x/week for manual therapy and core/hip strengthening, but due to limitations on her insurance the pt is choosing to attend therapy 1x/week at this time. The pt will benefit from skilled physical therapy to work towards achieveing the above stated goals. Physical Therapy Plan Frequency and Duration Frequency of Treatment 2x/Week Plan of Care Start Date 05/21/22 Plan of Care End Date 09/19/22 Therapeutic Interventions Therapeutic Interventions Home Exercise Program,Joint Mobilizations,Manual Therapy, Neuromuscular Re-education, Patient/Caregiver Education, Self-Care/Home Management,Soft Tissue Mobilization,Taping, Therapeutic Activities, Therapeutic Exercises Modalities Cold Pack/Ice Massage,Electric Stimulation,Hot Packs, Ultrasound Other Referrals/Consults Referrals/Consults Recommended Pelvic Floor therapy once her back rehab is complete. Next Visit Focus/Plan Next Note Type Treatment Note Next Visit Plan Posture training for sit, stand and sleeping. Assess gait, assess for DDD L1 -L4, and cervical involvement for L posterior shoulder pain. HEP: of Core & L hip strengthening, hip mobility ex 's after further assessment ( in addition to L hip ER), and stretch to correct lateral shift R trunk. Manual therapy for PF/hip ms dysfunction with recommendations if PF dysfunction. Assess for abdominal fascial restrictions (DR check). Modalities for L back pain as needed.
--- NOTE | 2022-05-28 15:39 | PT.OTN ---
Current Diagnoses Stiffness of unspecified hip, not elsewhere classified (05/28/22) Radiculopathy, thoracolumbar region (05/28/22) Lumbago with sciatica, left side (05/28/22) Muscle weakness (generalized) (05/28/22) Physical Therapy Treatment Note PT-OP-A Visit Information Start: 05/18/22 17:26 Freq: Status: Active Protocol: Document 05/28/22 14:40 LRN (Rec: 05/28/22 15:38 LRN [id number]) Out-Patient Physical Therapy Visit Information Visit Information Visit Type Treatment Note Visit Start Time 14:40 Visit Stop Time 15:24 Total Visit Minutes 44 Visit Number 2 Evaluation Information Evaluation Date 05/21/22 Precautions Precautions POTS also causing dizziness 7 yrs ago, dizziness onset with dehydration, Blood clots in proximal R lower leg 7 yrs ago, seizures controlled by medications, Neck injury 7 yrs ago. Childbirth 3 yrs ago (3 chidren - 16, 8, 2.5 yrs old) , states she was anorexic prior to pregnancies. PT-OP-B Current Condition Start: 05/18/22 17:26 Freq: Status: Active Protocol: Document 05/21/22 14:44 LRN (Rec: 05/21/22 16:33 LRN [id number]) Current Condition History of Current Condition Onset Date 10 months ago Current Complaints L sided body pain, today pain most in posterior L shoulder. History of Current Condition Insidious onset of L sided posterior thigh and hip pain, radiating into back and the entire body 9 months ago, sometimes worse depending on which side she sleeps. States the pain is all over but varies depending on the day and the way she sleeps. If her pain doesn't get better with PT, she will be referred to a guest experience captain. Sometimes she has trouble with her Bowel and Bladder. Sometimes can't wait when needing to have BM. Because of her POTS she drinks a lot of liquids and urinates a lot and leaks urine, usually on waking and when she has severe pain in the entire L side of her body. She states she has fainted and once landed on her jaw and had to wear a neck brace for 2 months, and deniesfracture of cervical spine. otherwise she has no recall of incident or injury associated to her L sided body pain. At the time of her recovering from her fall, she had tingling in her hands and after recovery she reports she had weakness in her arms and developed POTS. She has L hip pain with sex, so with stopping, feels she is worse. Prior Treatments and Tests CT scan and MRI @ 1 month ago due to concerns of cancer in the blood, but was found to be negative for cancer. MD has told her she has arthritis. Next MD appt will be after PT program. Developmental History Developmental History Pt is R handed. 2019 fell on back skating but didn't have any pain. Baby born 08/30/2019. During had L leg pain and posterior shoulder pain. Had an epidural but the injection was not able to fully go in due to the curvature of her spine. Lying down her entire back hurt. By end of she could hardly move. Treatment Goals Patient/Caregiver Goals Pt goal is to be able to sleep better, stay asleep and not have to wake every 2-3 hours. Current Functional Impairments (Reported) Functional Limitations- ADL's Wakes every 2-3 hours in the night. With a new pillow she can now sleep 5 hrs but has difficulty falling to sleep. She has most pain lying down or sitting. Mostly during the day she doesn't notice the pain. She is tired during the day due to lack of sleep. 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 Neck and hip is feeling more stiff today. The days she doesn't move it hurts more. Has been sitting for work the past 3 days. No time to do physical activities (walking or jump rope). States she feels better after exercising. PT-OP-H Neuro Start: 05/18/22 17:26 Freq: Status: Active Protocol: Document 05/21/22 14:44 LRN (Rec: 05/21/22 16:33 LRN [id number]) Sensation Evaluation Gross Sensation Gross Sensation Right LE Impaired Sensation Description Numbness Comments Summary Comments Numbness in L lateral thigh, ~ 2 wide strip between knee and hip. Deep Tendon Reflex & Clonus Assessment Deep Tendon Reflex Bilateral Achilles Deep Tendon Reflex 3+ Normal But Brisk Bilateral Patellar Deep Tendon Reflex 3+ Normal But Brisk PT-OP-J Posture/Palpation/Skin Start: 05/18/22 17:26 Freq: Status: Active Protocol: Document 05/21/22 14:44 LRN (Rec: 05/21/22 16:33 LRN [id number]) Posture Evaluation Position Standing L-Spine Posture Increased Lordosis,Shifted Right Shoulder Posture (L) Elevated Shoulder Subluxation Position (L) Posterior Scapula Posture (R) Rotated Up,(R) Depressed Arm Posture (L) Internally Rotated,(R) Internally Rotated Pelvis Posture (L) Iliac Crest Superior Comments Posture Comments Dowagers Hump, posterior L PSIS. Palpation Assessment Location Obturator Internus Palpation Location Tender Left on external palpation. Palpation Findings Tenderness Posterior L shoulder Palpation Location No tenderness Low Back Palpation Location No tenderness PT-OP-K Range of Motion Start: 05/18/22 17:26 Freq: Status: Active Protocol: Document 05/21/22 14:44 LRN (Rec: 05/21/22 16:33 LRN [id number]) Lumbar Spine Range of Motion Lumbar Spine Active Degrees Testing Position Standing Flexion 90 Extension 18 Comments 90/55 18/5 Held further testing due to dizziness from POTS. Hip Goniometric Range of Motion Hip Right Passive Testing Position Sitting Comments Sitting hip IR is ~45 deg's Left Passive Testing Position Sitting Comments Sitting hip IR is ~45 deg's PT-OP-L Special Tests Start: 05/18/22 17:26 Freq: Status: Active Protocol: Document 05/28/22 14:40 LRN (Rec: 05/28/22 15:38 LRN [id number]) Special Tests Cervical Spine Special Tests Traction Test Results Negative Spurling's Test Test Results + for neck pain Comments Pain in L side of neck with head in R SB Foraminal Compression Test Results Negative PT-OP-M Strength Start: 05/18/22 17:26 Freq: Status: Active Protocol: Document 05/21/22 14:44 LRN (Rec: 05/21/22 16:33 LRN [id number]) Trunk Strength Trunk Manual Muscle Testing Lateral Flexion Right 4 Good Core Stabilization Lacks core stability with MMT of LE's. Hip Strength Hip Manual Muscle Testing Right Adduction 3 Fair External Rotation 3 Fair Internal Rotation 3 Fair Comments Generally 5/5 except as indicated above. Left External Rotation 5 Normal Comments Generally 3/5 except as indicated above. PT-OP-Q Treatments Start: 05/18/22 17:26 Freq: Status: Active Protocol: Document 05/28/22 14:40 LRN (Rec: 05/28/22 15:38 LRN [id number]) Therapeutic Exercises Supine Exercises Neck stretch Supine Exercise Name Passive neck stretch, SB/Rot Side bilateral Reps/Minutes 5' Fig 4 stretch Supine Exercise Name L hip ER stretch, f/b active stretch Side bilateral Reps/Minutes 5' Comments R appears tighter than L, but L hip feels weaker to pt. Sidelying Exercises Shoulder IR Sidelying Exercise Name Shoulder IR strengthening Side left Reps/Minutes 30x Comments Reduced pain. Shoulder ER Sidelying Exercise Name Active Shoulder ER strengthening Side left Reps/Minutes 10x Comments Caused radiating pain to elbow Self-Care/Home Management Treatment Education Patient Education Posture Other Education Pt education in proper sit & stand posturing using wall for reference in standing and referencing posture using any reflective surface; and education of support to low back for proper sitting posture support. Discussed at length modifications to nighttime positioning with education using multiple pillows and discussion using pillow. Recommended pillow with variable hgts to accommodate different sleeping positions and reversing pillow to avoid pillow being over her head. Activities Self-Care/Home Management Activities Issued & reviewed HEP: Shoulder IR (L) strenghtening and Perry hip Fig 4 stretch. PT-OP-T Assessment and Plan Start: 05/18/22 17:26 Freq: Status: Active Protocol: Document 05/28/22 14:40 LRN (Rec: 05/28/22 15:38 LRN [id number]) Physical Therapy Assessment Goals Three Impairment Decrease pain Impairment L LBP when present is 9/10. L posterior shoulder pain is 5 -9/10. Short Term Goal (STG) Decrease low back and upper back pain to no greater than 6 /10. STG Duration 06/20/22 Senior Living Goal (LTG) Improve symmetry of hip mobility compared to initial measurements to decrease pain, with pt able to sleep better, stay asleep and not have to wake every 2-3 hours (sleep >5 hours). LTG Duration 09/19/22 Two Impairment L sided weakness Impairment L hip strength is generally 3/ 5 except ER is 5/5; R hip is 5 /5 except AD/ER/IR is 3/5. Core weakness - pt not able to maintain core stability with hip strength testing. Short Term Goal (STG) Pt will improve L hip strength & R hip AD/ER/IR to 4/5. STG Duration 07/03/22 Senior Living Goal (LTG) Pt will improve L hip and core strength to 4+ to 5/5 to decrease onset of L body sided pain to no greater than 3/5. LTG Duration 09/19/22 One Impairment Pt lacks a self care HEP. Short Term Goal (STG) Pt will be educated in proper sit, stand and nighttime posturing. (05/28/22: pT EDUCATED IN Posture training for sit, stand and sleeping). STG Duration 05/29/22 (05/28/22: MET GOAL). Licensed Physical Therapist Assistant Goal (LTG) Pt will be educated in a self care HEP. LTG Duration 09/19/22 Assessment Summary Assessment Pt presents with L body pain that appears postural related( night & day posturing), with variable results from cervical provocative testing for neurological involvement. Pt complains of L medial scapular border pain with shoulder ER and after Spurlings Test, although she gets no relief of pain with manual cervical traction; therefore her pain is probably soft tissue related (supscapularis strain from poor nighttime positioning. Pt demonstrates dyfunctional nighttime sleep with pt mostly sleeping on R side, hugging self, or lays partially on stomach. Pt sleeps with son in bed causing her to sleep with one arm under pillow when lying on her back. Pt was receptive to postural education. She does have increased pain with PA glide of L2 and mildly at L4. Physical Therapy Plan Frequency and Duration Frequency of Treatment 2x/Week Plan of Care Start Date 05/21/22 Plan of Care End Date 09/19/22 Next Visit Focus/Plan Next Note Type Treatment Note Next Visit Plan CAUTION: POTS affecting blood pressure. Assess gait HEP: of Core & L hip strengthening, hip mobility ex 's after further assessment ( in addition to L hip ER), and stretch to correct lateral shift R trunk. L shoulder IR, ER strengthening. Manual therapy for PF/hip ms dysfunction with recommendations if PF dysfunction. Assess for abdominal fascial restrictions (DR fry). Modalities for L back pain as needed.
--- NOTE | 2022-06-04 14:36 | PT.OTN ---
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 Childbirth 3 yrs ago (3 chidren - 16, 8, 2.5 yrs old) , states she was anorexic prior to pregnancies. PT-OP-B Current Condition Start: 05/18/22 17:26 Freq: Status: Active Protocol: Document 05/21/22 14:44 LRN (Rec: 05/21/22 16:33 LRN [id number]) Current Condition History of Current Condition Onset Date 10 months ago Current Complaints L sided body pain, today pain most in posterior L shoulder. History of Current Condition Insidious onset of L sided posterior thigh and hip pain, radiating into back and the entire body 9 months ago, sometimes worse depending on which side she sleeps. States the pain is all over but varies depending on the day and the way she sleeps. If her pain doesn't get better with PT, she will be referred to a manufacturing process engineer. Sometimes she has trouble with her Bowel and Bladder. Sometimes can't wait when needing to have BM. Because of her POTS she drinks a lot of liquids and urinates a lot and leaks urine, usually on waking and when she has severe pain in the entire L side of her body. She states she has fainted and once landed on her jaw and had to wear a neck brace for 2 months, and deniesfracture of cervical spine. otherwise she has no recall of incident or injury associated to her L sided body pain. At the time of her recovering from her fall, she had tingling in her hands and after recovery she reports she had weakness in her arms and developed POTS. She has L hip pain with sex, so with stopping, feels she is worse. Prior Treatments and Tests CT scan and MRI @ 1 month ago due to concerns of cancer in the blood, but was found to be negative for cancer. MD has told her she has arthritis. Next MD appt will be after PT program. Developmental History Developmental History Pt is R handed. 2019 fell on back skating but didn't have any pain. Baby born 08/30/2017. During had L leg pain and posterior shoulder pain. Had an epidural but the injection was not able to fully go in due to the curvature of her spine. Lying down her entire back hurt. By end of she could hardly move. Treatment Goals Patient/Caregiver Goals Pt goal is to be able to sleep better, stay asleep and not have to wake every 2-3 hours. Current Functional Impairments (Reported) Functional Limitations- ADL's Wakes every 2-3 hours in the night. With a new pillow she can now sleep 5 hrs but has difficulty falling to sleep. She has most pain lying down or sitting. Mostly during the day she doesn't notice the pain. She is tired during the day due to lack of sleep. 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 She reports the exercises have helped with eleviating her pain and more hip ER movement. PT-OP-H Neuro Start: 05/18/22 17:26 Freq: Status: Active Protocol: Document 05/21/22 14:44 LRN (Rec: 05/21/22 16:33 LRN [id number]) Sensation Evaluation Gross Sensation Gross Sensation Right LE Impaired Sensation Description Numbness Comments Summary Comments Numbness in L lateral thigh, ~ 2 wide strip between knee and hip. Deep Tendon Reflex & Clonus Assessment Deep Tendon Reflex Bilateral Achilles Deep Tendon Reflex 3+ Normal But Brisk Bilateral Patellar Deep Tendon Reflex 3+ Normal But Brisk PT-OP-J Posture/Palpation/Skin Start: 05/18/22 17:26 Freq: Status: Active Protocol: Document 05/21/22 14:44 LRN (Rec: 05/21/22 16:33 LRN [id number]) Posture Evaluation Position Standing L-Spine Posture Increased Lordosis,Shifted Right Shoulder Posture (L) Elevated Shoulder Subluxation Position (L) Posterior Scapula Posture (R) Rotated Up,(R) Depressed Arm Posture (L) Internally Rotated,(R) Internally Rotated Pelvis Posture (L) Iliac Crest Superior Comments Posture Comments Dowagers Hump, posterior L PSIS. Palpation Assessment Location Obturator Internus Palpation Location Tender Left on external palpation. Palpation Findings Tenderness Posterior L shoulder Palpation Location No tenderness Low Back Palpation Location No tenderness PT-OP-K Range of Motion Start: 05/18/22 17:26 Freq: Status: Active Protocol: Document 05/21/22 14:44 LRN (Rec: 05/21/22 16:33 LRN [id number]) Lumbar Spine Range of Motion Lumbar Spine Active Degrees Testing Position Standing Flexion 90 Extension 18 Comments 90/55 18/5 Held further testing due to dizziness from POTS. Hip Goniometric Range of Motion Hip Right Passive Testing Position Sitting Comments Sitting hip IR is ~45 deg's Left Passive Testing Position Sitting Comments Sitting hip IR is ~45 deg's PT-OP-L Special Tests Start: 05/18/22 17:26 Freq: Status: Active Protocol: Document 05/28/22 14:40 LRN (Rec: 05/28/22 15:38 LRN [id number]) Special Tests Cervical Spine Special Tests Traction Test Results Negative Spurling's Test Test Results + for neck pain Comments Pain in L side of neck with head in R SB Foraminal Compression Test Results Negative PT-OP-M Strength Start: 05/18/22 17:26 Freq: Status: Active Protocol: Document 05/21/22 14:44 LRN (Rec: 05/21/22 16:33 LRN [id number]) Trunk Strength Trunk Manual Muscle Testing Lateral Flexion Right 4 Good Core Stabilization Lacks core stability with MMT of LE's. Hip Strength Hip Manual Muscle Testing Right Adduction 3 Fair External Rotation 3 Fair Internal Rotation 3 Fair Comments Generally 5/5 except as indicated above. Left External Rotation 5 Normal Comments Generally 3/5 except as indicated above. PT-OP-Q Treatments Start: 05/18/22 17:26 Freq: Status: Active Protocol: Document 06/04/22 13:54 SP (Rec: 06/04/22 15:01 SP [id number]) Therapeutic Exercises Supine Exercises clamshell Supine Exercise Name added to HEP Resistance TB loop around thighs Reps/Minutes 3 s hold 2x10 Comments cued neutral LS Neck stretch Supine Exercise Name Passive neck stretch, SB/Rot Side bilateral Reps/Minutes 2 Comments good feedback stretch Fig 4 stretch Supine Exercise Name L hip ER stretch, f/b active stretch Side bilateral Reps/Minutes 30 x3 Comments R appears tighter than L, but L hip feels weaker to pt. Sitting Exercises self STMs Sitting Exercise Name added to HEP: UT, suboccipitals, LS Side bilateral Equipment Used theracane Reps/Minutes 3 min Comments cued/ed MWM head nod/turns- good feedback response (better than nobber home UT, LS stretch Sitting Exercise Name added to HEP Side bilateral Reps/Minutes 30 x2 each Comments cued posture and gentle over pressure using opp UE, good response Standing Exercises self STMs scap Standing Exercise Name added to HEP: rhomboid, infraspinatus, Teres, Lat Side bilateral Equipment Used racquetball in sock Reps/Minutes 3 min Comments good feedback decreased muscle tension Manual Therapy Treatment Soft Tissue Mobilization neck, scap Body Location suboccipitals, UT, LS, infrasp , Rhomboid Mobilization Type Cross-Friction,Sustained Pressure,Other Intensity/Depth Moderate Body Position Hooklying Comments manual MWM, CS head nod/turns, shld shrugs then instruction self use theracane/ball wall Self-Care/Home Management Treatment Education Patient Education Joint Protection,Pain Management,Posture Other Education Time spent side sleeping with use pillows: ed noodle bottom pillow case support neck, pillow front arms, small folded towel/flat pillow under lateral upper ribcage, bwtn B LEs to allow spinal stabilization with good feedback response prevent position and post shld/ neck pain. -added resisted supine clamshell holds, seated UT/LS stretch, self STMs MWM neck/ scap theracane/ball wall PT-OP-T Assessment and Plan Start: 05/18/22 17:26 Freq: Status: Active Protocol: Document 06/04/22 13:54 SP (Rec: 06/04/22 15:01 SP [id number]) Physical Therapy Assessment Goals Three Impairment Decrease pain Impairment L LBP when present is 9/10. L posterior shoulder pain is 5 -9/10. Short Term Goal (STG) Decrease low back and upper back pain to no greater than 6 /10. STG Duration 06/20/22 Halfway Goal (LTG) Improve symmetry of hip mobility compared to initial measurements to decrease pain, with pt able to sleep better, stay asleep and not have to wake every 2-3 hours (sleep >5 hours). LTG Duration 09/19/22 Two Impairment L sided weakness Impairment L hip strength is generally 3/ 5 except ER is 5/5; R hip is 5 /5 except AD/ER/IR is 3/5. Core weakness - pt not able to maintain core stability with hip strength testing. Short Term Goal (STG) Pt will improve L hip strength & R hip AD/ER/IR to 4/5. 06/04/22: added supine resisted clamshell. STG Duration 07/03/22 Halfway Goal (LTG) Pt will improve L hip and core strength to 4+ to 5/5 to decrease onset of L body sided pain to no greater than 3/5. LTG Duration 09/19/22 One Impairment Pt lacks a self care HEP. Short Term Goal (STG) Pt will be educated in proper sit, stand and nighttime posturing. (05/28/22: pT EDUCATED IN Posture training for sit, stand and sleeping). STG Duration 05/29/22 (05/28/22: MET GOAL). Real Estate Leasing Agent Goal (LTG) Pt will be educated in a self care HEP. 06/04/22: continued sidesleeping use pillows included under lat scap/ between arms, better response, UT/LS stretches, supine resisted clamshell, STMs to neck/scap MWM. LTG Duration 09/19/22 progressin06/04/22 Assessment Summary Assessment Pt had good feedback response to manual, self STMs performance and added clamshell to HEP. Pt stated the clamshell makes her L hip feel alot better with ABD facilitation against resistance. Physical Therapy Plan Frequency and Duration Frequency of Treatment 2x/Week Plan of Care Start Date 05/21/22 Plan of Care End Date 09/19/22 Therapeutic Interventions Therapeutic Interventions Home Exercise Program,Joint Mobilizations,Manual Therapy, Neuromuscular Re-education, Patient/Caregiver Education, Self-Care/Home Management,Soft Tissue Mobilization,Taping, Therapeutic Activities, Therapeutic Exercises Modalities Cold Pack/Ice Massage,Electric Stimulation,Hot Packs, Ultrasound Other Referrals/Consults Referrals/Consults Recommended Pelvic Floor therapy once her back rehab is complete. Next Visit Focus/Plan Next Note Type Treatment Note Next Visit Plan CAUTION: POTS affecting blood pressure. Assess response to manual/ stretches/self STMs. Next add supine core UE press downs in hooklying, wall posture, seated shld ER w/ posture. HEP: assess gait, Core & L hip strengthening, hip mobility ex's after further assessment (in addition to L hip ER), and stretch to correct lateral shift R trunk. L shoulder IR, ER strengthening. Manual therapy for PF/hip ms dysfunction with recommendations if PF dysfunction. Assess for abdominal fascial restrictions (DR check). Modalities for L back pain as needed.
--- NOTE | 2022-06-09 12:18 | PT.OTN ---
Current Diagnoses Stiffness of unspecified hip, not elsewhere classified (06/09/22) Radiculopathy, thoracolumbar region (06/09/22) Lumbago with sciatica, left side (06/09/22) Muscle weakness (generalized) (06/09/22) Physical Therapy Treatment Note PT-OP-A Visit Information Start: 05/18/22 17:26 Freq: Status: Active Protocol: Document 06/09/22 11:17 LRN (Rec: 06/09/22 12:18 LRN [id number]) Out-Patient Physical Therapy Visit Information Visit Information Visit Type Treatment Note Visit Start Time 11:17 Visit Stop Time 12:02 Total Visit Minutes 45 Visit Number 4 Evaluation Information Evaluation Date 05/21/22 Precautions Precautions POTS also causing dizziness 7 yrs ago, dizziness onset with dehydration, Blood clots in proximal R lower leg 7 yrs ago, seizures controlled by medications, Neck injury 7 yrs ago. Childbirth 3 yrs ago (3 chidren - 16, 8, 2.5 yrs old) , states she was anorexic prior to pregnancies. PT-OP-B Current Condition Start: 05/18/22 17:26 Freq: Status: Active Protocol: Document 05/21/22 14:44 LRN (Rec: 05/21/22 16:33 LRN [id number]) Current Condition History of Current Condition Onset Date 10 months ago Current Complaints L sided body pain, today pain most in posterior L shoulder. History of Current Condition Insidious onset of L sided posterior thigh and hip pain, radiating into back and the entire body 9 months ago, sometimes worse depending on which side she sleeps. States the pain is all over but varies depending on the day and the way she sleeps. If her pain doesn't get better with PT, she will be referred to a tip tester. Sometimes she has trouble with her Bowel and Bladder. Sometimes can't wait when needing to have BM. Because of her POTS she drinks a lot of liquids and urinates a lot and leaks urine, usually on waking and when she has severe pain in the entire L side of her body. She states she has fainted and once landed on her jaw and had to wear a neck brace for 2 months, and deniesfracture of cervical spine. otherwise she has no recall of incident or injury associated to her L sided body pain. At the time of her recovering from her fall, she had tingling in her hands and after recovery she reports she had weakness in her arms and developed POTS. She has L hip pain with sex, so with stopping, feels she is worse. Prior Treatments and Tests CT scan and MRI @ 1 month ago due to concerns of cancer in the blood, but was found to be negative for cancer. MD has told her she has arthritis. Next MD appt will be after PT program. Developmental History Developmental History Pt is R handed. 2019 fell on back skating but didn't have any pain. Baby born 08/30/2019. During had L leg pain and posterior shoulder pain. Had an epidural but the injection was not able to fully go in due to the curvature of her spine. Lying down her entire back hurt. By end of she could hardly move. Treatment Goals Patient/Caregiver Goals Pt goal is to be able to sleep better, stay asleep and not have to wake every 2-3 hours. Current Functional Impairments (Reported) Functional Limitations- ADL's Wakes every 2-3 hours in the night. With a new pillow she can now sleep 5 hrs but has difficulty falling to sleep. She has most pain lying down or sitting. Mostly during the day she doesn't notice the pain. She is tired during the day due to lack of sleep. 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 Tried everything told and it has helped, but at bedtime the pain is the same. Pain in neck & UT, 4-5/10, tension. PT-OP-H Neuro Start: 05/18/22 17:26 Freq: Status: Active Protocol: Document 05/21/22 14:44 LRN (Rec: 05/21/22 16:33 LRN [id number]) Sensation Evaluation Gross Sensation Gross Sensation Right LE Impaired Sensation Description Numbness Comments Summary Comments Numbness in L lateral thigh, ~ 2 wide strip between knee and hip. Deep Tendon Reflex & Clonus Assessment Deep Tendon Reflex Bilateral Achilles Deep Tendon Reflex 3+ Normal But Brisk Bilateral Patellar Deep Tendon Reflex 3+ Normal But Brisk PT-OP-J Posture/Palpation/Skin Start: 05/18/22 17:26 Freq: Status: Active Protocol: Document 05/21/22 14:44 LRN (Rec: 05/21/22 16:33 LRN [id number]) Posture Evaluation Position Standing L-Spine Posture Increased Lordosis,Shifted Right Shoulder Posture (L) Elevated Shoulder Subluxation Position (L) Posterior Scapula Posture (R) Rotated Up,(R) Depressed Arm Posture (L) Internally Rotated,(R) Internally Rotated Pelvis Posture (L) Iliac Crest Superior Comments Posture Comments Dowagers Hump, posterior L PSIS. Palpation Assessment Location Obturator Internus Palpation Location Tender Left on external palpation. Palpation Findings Tenderness Posterior L shoulder Palpation Location No tenderness Low Back Palpation Location No tenderness PT-OP-K Range of Motion Start: 05/18/22 17:26 Freq: Status: Active Protocol: Document 05/21/22 14:44 LRN (Rec: 05/21/22 16:33 LRN [id number]) Lumbar Spine Range of Motion Lumbar Spine Active Degrees Testing Position Standing Flexion 90 Extension 18 Comments 90/55 18/5 Held further testing due to dizziness from POTS. Hip Goniometric Range of Motion Hip Right Passive Testing Position Sitting Comments Sitting hip IR is ~45 deg's Left Passive Testing Position Sitting Comments Sitting hip IR is ~45 deg's PT-OP-L Special Tests Start: 05/18/22 17:26 Freq: Status: Active Protocol: Document 05/28/22 14:40 LRN (Rec: 05/28/22 15:38 LRN [id number]) Special Tests Cervical Spine Special Tests Traction Test Results Negative Spurling's Test Test Results + for neck pain Comments Pain in L side of neck with head in R SB Foraminal Compression Test Results Negative PT-OP-M Strength Start: 05/18/22 17:26 Freq: Status: Active Protocol: Document 05/21/22 14:44 LRN (Rec: 05/21/22 16:33 LRN [id number]) Trunk Strength Trunk Manual Muscle Testing Lateral Flexion Right 4 Good Core Stabilization Lacks core stability with MMT of LE's. Hip Strength Hip Manual Muscle Testing Right Adduction 3 Fair External Rotation 3 Fair Internal Rotation 3 Fair Comments Generally 5/5 except as indicated above. Left External Rotation 5 Normal Comments Generally 3/5 except as indicated above. PT-OP-Q Treatments Start: 05/18/22 17:26 Freq: Status: Active Protocol: Document 06/09/22 11:17 LRN (Rec: 06/09/22 12:18 LRN [id number]) Therapeutic Exercises Sitting Exercises L T/S paraspinals strengthening Sitting Exercise Name L & Perry: End-range shoulder flexion (Lower trap/ Paraspinals) Side left Reps/Minutes 10-15x each Comments Extra time taken for training of proper mvmt Rhomboid strengthening Sitting Exercise Name L & Perry: Scap retract/ depression (move into opp back pockets) Side bilateral Reps/Minutes 10-15x each Comments Extra time taken for training of proper mvmt self STMs Sitting Exercise Name Verbal Review using ball and Theracane. Side left Manual Therapy Treatment Soft Tissue Mobilization Upper back Body Location Left: Rhomboid, Latissimus Dorsi, Lower trap Mobilization Type Strumming Intensity/Depth Moderate Body Position Prone neck, scap Body Location L Paraspinals, UT. Mobilization Type Strumming Intensity/Depth Moderate Body Position Prone Self-Care/Home Management Treatment Education Other Education Discussed alternative head support pillows for improved sleeping at night. Activities Self-Care/Home Management Activities I/S pt in HEP: L sided row and L shoulder end-range flex (for scap depression/ retraction), and issued Lev 2 TB with white strap. PT-OP-T Assessment and Plan Start: 05/18/22 17:26 Freq: Status: Active Protocol: Document 06/09/22 11:17 LRN (Rec: 06/09/22 12:18 [facility] [id number]) Physical Therapy Assessment Goals Three Impairment Decrease pain Impairment L LBP when present is 9/10. L posterior shoulder pain is 5 -9/10. Short Term Goal (STG) Decrease low back and upper back pain to no greater than 6 /10. 06/09/22: Pain rated 5-6/10. STG Duration 06/20/22 (06/09/22: MET GOAL) Intermediate Goal (LTG) Improve symmetry of hip mobility compared to initial measurements to decrease pain, with pt able to sleep better, stay asleep and not have to wake every 2-3 hours (sleep >5 hours). LTG Duration 09/19/22 Two Impairment L sided weakness Impairment L hip strength is generally 3/ 5 except ER is 5/5; R hip is 5 /5 except AD/ER/IR is 3/5. Core weakness - pt not able to maintain core stability with hip strength testing. Short Term Goal (STG) Pt will improve L hip strength & R hip AD/ER/IR to 4/5. 06/04/22: added supine resisted clamshell. STG Duration 07/03/22 Can Sorter Goal (LTG) Pt will improve L hip and core strength to 4+ to 5/5 to decrease onset of L body sided pain to no greater than 3/5. LTG Duration 09/19/22 One Impairment Pt lacks a self care HEP. Short Term Goal (STG) Pt will be educated in proper sit, stand and nighttime posturing. (05/28/22: pT EDUCATED IN Posture training for sit, stand and sleeping). STG Duration 05/29/22 (05/28/22: MET GOAL). Intermediate Goal (LTG) Pt will be educated in a self care HEP. 06/04/22: continued sidesleeping use pillows included under lat scap/ between arms, better response, UT/LS stretches, supine resisted clamshell, STMs to neck/scap MWM. LTG Duration 09/19/22 progressin06/04/22 Assessment Summary Assessment Postive response to manual/ stretches/self STMs in L low back. Pt found use of ball for UT self TrP treatment to be helpful. Pt back has a slight C-curve with apex on the R. No lateral trunk shift noted today. Neck pain decreased from 4-5/10 to 3/10 after therapy. Pain relief with scapular retract strengthening. Pt L scapula is protracted with atrophy of L Rhomboid. Physical Therapy Plan Frequency and Duration Frequency of Treatment 2x/Week Plan of Care Start Date 05/21/22 Plan of Care End Date 09/19/22 Next Visit Focus/Plan Next Note Type Treatment Note Next Visit Plan CAUTION: POTS affecting blood pressure. Next add supine core UE press downs in hooklying, wall posture, seated shld ER w/ posture. Treat for C-curve with apex on left. HEP: assess gait, Core & L hip strengthening, hip mobility ex's after further assessment (in addition to L hip ER). L shoulder IR, ER strengthening. Manual therapy for PF/hip ms dysfunction with recommendations if PF dysfunction. Assess for abdominal fascial restrictions (DR check). Ice/Heat for L back pain as needed (no Wero due to seizure hx).
--- NOTE | 2022-06-26 15:18 | PT.OTN ---
Current Diagnoses Stiffness of unspecified hip, not elsewhere classified (06/26/22) Radiculopathy, thoracolumbar region (06/26/22) Lumbago with sciatica, left side (06/26/22) Muscle weakness (generalized) (06/26/22) Physical Therapy Treatment Note PT-OP-A Visit Information Start: 05/18/22 17:26 Freq: Status: Active Protocol: Document 06/26/22 14:38 SP (Rec: 06/26/22 15:37 SP [id number]) Out-Patient Physical Therapy Visit Information Visit Information Visit Type Treatment Note Visit Note 4 more visits allowed, pt has 5 scheduled, she stated will cancel 07/30 (last scheduled) with SHADE MATCHER. Visit Start Time 14:38 Visit Stop Time 15:18 Total Visit Minutes 40 Visit Number 5 Number of SHADE MATCHER Visits 1 Evaluation Information Evaluation Date 05/21/22 Precautions Precautions POTS also causing dizziness 7 yrs ago, dizziness onset with dehydration, Blood clots in proximal R lower leg 7 yrs ago, seizures controlled by medications, Neck injury 7 yrs ago. Childbirth 3 yrs ago (3 chidren - 16, 8, 2.5 yrs old) , states she was anorexic prior to pregnancies. PT-OP-B Current Condition Start: 05/18/22 17:26 Freq: Status: Active Protocol: Document 05/21/22 14:44 LRN (Rec: 05/21/22 16:33 LRN [id number]) Current Condition History of Current Condition Onset Date 10 months ago Current Complaints L sided body pain, today pain most in posterior L shoulder. History of Current Condition Insidious onset of L sided posterior thigh and hip pain, radiating into back and the entire body 9 months ago, sometimes worse depending on which side she sleeps. States the pain is all over but varies depending on the day and the way she sleeps. If her pain doesn't get better with PT, she will be referred to a electrical service technician. Sometimes she has trouble with her Bowel and Bladder. Sometimes can't wait when needing to have BM. Because of her POTS she drinks a lot of liquids and urinates a lot and leaks urine, usually on waking and when she has severe pain in the entire L side of her body. She states she has fainted and once landed on her jaw and had to wear a neck brace for 2 months, and deniesfracture of cervical spine. otherwise she has no recall of incident or injury associated to her L sided body pain. At the time of her recovering from her fall, she had tingling in her hands and after recovery she reports she had weakness in her arms and developed POTS. She has L hip pain with sex, so with stopping, feels she is worse. Prior Treatments and Tests CT scan and MRI @ 1 month ago due to concerns of cancer in the blood, but was found to be negative for cancer. MD has told her she has arthritis. Next MD appt will be after PT program. Developmental History Developmental History Pt is R handed. 2019 fell on back skating but didn't have any pain. Baby born 08/[birth year]/2019. During had L leg pain and posterior shoulder pain. Had an epidural but the injection was not able to fully go in due to the curvature of her spine. Lying down her entire back hurt. By end of she could hardly move. Treatment Goals Patient/Caregiver Goals Pt goal is to be able to sleep better, stay asleep and not have to wake every 2-3 hours. Current Functional Impairments (Reported) Functional Limitations- ADL's Wakes every 2-3 hours in the night. With a new pillow she can now sleep 5 hrs but has difficulty falling to sleep. She has most pain lying down or sitting. Mostly during the day she doesn't notice the pain. She is tired during the day due to lack of sleep. 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 Requested some ROM full body to allow over all mobiltiy and hips knowing only have limited more visits. PT-OP-H Neuro Start: 05/18/22 17:26 Freq: Status: Active Protocol: Document 05/21/22 14:44 LRN (Rec: 05/21/22 16:33 LRN [id number]) Sensation Evaluation Gross Sensation Gross Sensation Right LE Impaired Sensation Description Numbness Comments Summary Comments Numbness in L lateral thigh, ~ 2 wide strip between knee and hip. Deep Tendon Reflex & Clonus Assessment Deep Tendon Reflex Bilateral Achilles Deep Tendon Reflex 3+ Normal But Brisk Bilateral Patellar Deep Tendon Reflex 3+ Normal But Brisk PT-OP-J Posture/Palpation/Skin Start: 05/18/22 17:26 Freq: Status: Active Protocol: Document 05/21/22 14:44 LRN (Rec: 05/21/22 16:33 LRN [id number]) Posture Evaluation Position Standing L-Spine Posture Increased Lordosis,Shifted Right Shoulder Posture (L) Elevated Shoulder Subluxation Position (L) Posterior Scapula Posture (R) Rotated Up,(R) Depressed Arm Posture (L) Internally Rotated,(R) Internally Rotated Pelvis Posture (L) Iliac Crest Superior Comments Posture Comments Dowagers Hump, posterior L PSIS. Palpation Assessment Location Obturator Internus Palpation Location Tender Left on external palpation. Palpation Findings Tenderness Posterior L shoulder Palpation Location No tenderness Low Back Palpation Location No tenderness PT-OP-K Range of Motion Start: 05/18/22 17:26 Freq: Status: Active Protocol: Document 05/21/22 14:44 LRN (Rec: 05/21/22 16:33 LRN [id number]) Lumbar Spine Range of Motion Lumbar Spine Active Degrees Testing Position Standing Flexion 90 Extension 18 Comments 90/55 18/5 Held further testing due to dizziness from POTS. Hip Goniometric Range of Motion Hip Right Passive Testing Position Sitting Comments Sitting hip IR is ~45 deg's Left Passive Testing Position Sitting Comments Sitting hip IR is ~45 deg's PT-OP-L Special Tests Start: 05/18/22 17:26 Freq: Status: Active Protocol: Document 05/28/22 14:40 LRN (Rec: 05/28/22 15:38 LRN [id number]) Special Tests Cervical Spine Special Tests Traction Test Results Negative Spurling's Test Test Results + for neck pain Comments Pain in L side of neck with head in R SB Foraminal Compression Test Results Negative PT-OP-M Strength Start: 05/18/22 17:26 Freq: Status: Active Protocol: Document 05/21/22 14:44 LRN (Rec: 05/21/22 16:33 LRN [id number]) Trunk Strength Trunk Manual Muscle Testing Lateral Flexion Right 4 Good Core Stabilization Lacks core stability with MMT of LE's. Hip Strength Hip Manual Muscle Testing Right Adduction 3 Fair External Rotation 3 Fair Internal Rotation 3 Fair Comments Generally 5/5 except as indicated above. Left External Rotation 5 Normal Comments Generally 3/5 except as indicated above. PT-OP-Q Treatments Start: 05/18/22 17:26 Freq: Status: Active Protocol: Document 06/26/22 14:38 SP (Rec: 06/26/22 15:37 SP [id number]) Therapeutic Exercises Supine Exercises core press Supine Exercise Name added to HEP: knees bent Side bilateral Reps/Minutes 10 SH x 3-5 Comments cued head nod neutral CS, scap retract/depress, no back arch Sitting Exercises scalene stretch Sitting Exercise Name added to HEP Side bilateral Reps/Minutes 20sec hold x2 Comments extra time for set up and directions head positioning median nerve glides Sitting Exercise Name added to HEP, each UE Side bilateral Reps/Minutes x10 reps Comments good feedback response to AROM , stretch forearms and pain/ tingle free L T/S paraspinals strengthening Sitting Exercise Name L & Perry: End-range shoulder flexion (Lower trap/ Paraspinals) Side left Reps/Minutes 15 reps x3 sets (has been 10 x3 at home) Comments stated little jt pain B elbows , wrist Rhomboid strengthening Sitting Exercise Name L & Perry: Scap retract/ depression (move into opp back pockets) Side bilateral Reps/Minutes 10-15x each Comments good form and feedback response self STMs Sitting Exercise Name Verbal Review using ball and Theracane. Side left Comments good feedback releases UT, LS stretch Sitting Exercise Name reviewed HEP Side bilateral Reps/Minutes 30 x2 each Comments cued posture and gentle over pressure using opp UE, good response Standing Exercises resisted shld ext Standing Exercise Name verbal reviewed self HEP Side bilateral Resistance TB Reps/Minutes x10 wall posture Standing Exercise Name added to HEP Reps/Minutes 10 SH x3 reps Comments cued TA/ no LB arch, scap retract/depress- good rhomboid fac reported Self-Care/Home Management Treatment Education Patient Education Home Exercise Program,Joint Protection,Pain Management, Posture Other Education Added median nerve glide, scalened stretch, core posture press supine, wall posture standing help support posture. Discussed got pillow and better neck positioning. PT-OP-T Assessment and Plan Start: 05/18/22 17:26 Freq: Status: Active Protocol: Document 06/26/22 14:38 SP (Rec: 06/26/22 15:37 SP [id number]) Physical Therapy Assessment Goals Three Impairment Decrease pain Impairment L LBP when present is 9/10. L posterior shoulder pain is 5 -9/10. Short Term Goal (STG) Decrease low back and upper back pain to no greater than 6 /10. 06/09/22: Pain rated 5-6/10. STG Duration 06/20/22 (06/09/22: MET GOAL) Shelter Goal (LTG) Improve symmetry of hip mobility compared to initial measurements to decrease pain, with pt able to sleep better, stay asleep and not have to wake every 2-3 hours (sleep >5 hours). LTG Duration 09/19/22 Two Impairment L sided weakness Impairment L hip strength is generally 3/ 5 except ER is 5/5; R hip is 5 /5 except AD/ER/IR is 3/5. Core weakness - pt not able to maintain core stability with hip strength testing. Short Term Goal (STG) Pt will improve L hip strength & R hip AD/ER/IR to 4/5. 06/04/22: added supine resisted clamshell. STG Duration 07/03/22 Shelter Goal (LTG) Pt will improve L hip and core strength to 4+ to 5/5 to decrease onset of L body sided pain to no greater than 3/5. 06/26/22: added core UE retro press, wall posture. LTG Duration 09/19/22 progressing 06/26/22 One Impairment Pt lacks a self care HEP. Short Term Goal (STG) Pt will be educated in proper sit, stand and nighttime posturing. (05/28/22: pT EDUCATED IN Posture training for sit, stand and sleeping). STG Duration 05/29/22 (05/28/22: MET GOAL). Crossing Tender Goal (LTG) Pt will be educated in a self care HEP. 06/04/22: continued sidesleeping use pillows included under lat scap/ between arms, better response, UT/LS stretches, supine resisted clamshell, STMs to neck/scap MWM. 06/26/22: reviewed pillow positioning, self STMs and rotation HEP. Added median nerve glide, scalened stretch, core posture press supine, wall posture standing help support posture. LTG Duration 09/19/22 progressin06/26/22 Assessment Summary Assessment Pt responded well to added median nerve glide, scalene stretch, posture and core presses to HEP. She reports and demonstrates Rhomboid activiation reaching back opposite pelvis feels really good relief to upper back muscles. Physical Therapy Plan Frequency and Duration Frequency of Treatment 2x/Week Plan of Care Start Date 05/21/22 Plan of Care End Date 09/19/22 Therapeutic Interventions Therapeutic Interventions Home Exercise Program,Joint Mobilizations,Manual Therapy, Neuromuscular Re-education, Patient/Caregiver Education, Self-Care/Home Management,Soft Tissue Mobilization,Taping, Therapeutic Activities, Therapeutic Exercises Modalities Cold Pack/Ice Massage,Electric Stimulation,Hot Packs, Ultrasound Other Referrals/Consults Referrals/Consults Recommended Pelvic Floor therapy once her back rehab is complete. Next Visit Focus/Plan Next Note Type Treatment Note Next Visit Plan CAUTION: POTS affecting blood pressure. Next add seated L shld IR/ER strengthening w/ posture, Treat for C-curve with apex on left. HEP: assess gait, Core & L hip strengthening, hip mobility ex's after further assessment (in addition to L hip ER). Manual therapy for PF/hip ms dysfunction with recommendations if PF dysfunction. Assess for abdominal fascial restrictions ( check). Ice/Heat for L back pain as needed (no Wero due to seizure hx).
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
--- NOTE | 2022-07-17 14:46 | PT-OP ANOTE ---
DNS. Unable to LM for pt's for next scheduled appt and notifying of today's missed appt due to mailbox not set up.
--- NOTE | 2022-07-24 14:47 | PT-OP ANOTE ---
Per phone conversation, pt reports not feeling well and her son that helps her watch her younger children while she attends therapy is now in the hospital. Pt would like to complete her remaining 2 visits and will call to reschedule after her son gets out of the hospital.
--- NOTE | 2022-11-13 16:19 | PT.OPDS ---
Current Diagnoses Stiffness of unspecified hip, not elsewhere classified (07/10/22) Radiculopathy, thoracolumbar region (07/10/22) Lumbago with sciatica, left side (07/10/22) Muscle weakness (generalized) (07/10/22) Visit Care Team Role Provider Type Lashae Lin MD Attending Provider Non-Staff Family Provider Primary Care Provider Referring Provider Specialty: Medical Address: [address] [place] [address], [phone] Email: Visit Number Visit Number 7 Discharge Summary PT-OP-B Current Condition Start: 05/18/22 17:26 Freq: Status: Active Protocol: Document 05/21/22 14:44 LRN (Rec: 05/21/22 16:33 LRN [id number]) Current Condition History of Current Condition Onset Date 10 months ago Current Complaints L sided body pain, today pain most in posterior L shoulder. History of Current Condition Insidious onset of L sided posterior thigh and hip pain, radiating into back and the entire body 9 months ago, sometimes worse depending on which side she sleeps. States the pain is all over but varies depending on the day and the way she sleeps. If her pain doesn't get better with PT, she will be referred to a neck skewer. Sometimes she has trouble with her Bowel and Bladder. Sometimes can't wait when needing to have BM. Because of her POTS she drinks a lot of liquids and urinates a lot and leaks urine, usually on waking and when she has severe pain in the entire L side of her body. She states she has fainted and once landed on her jaw and had to wear a neck brace for 2 months, and deniesfracture of cervical spine. otherwise she has no recall of incident or injury associated to her L sided body pain. At the time of her recovering from her fall, she had tingling in her hands and after recovery she reports she had weakness in her arms and developed POTS. She has L hip pain with sex, so with stopping, feels she is worse. Prior Treatments and Tests CT scan and MRI @ 1 month ago due to concerns of cancer in the blood, but was found to be negative for cancer. has told her she has arthritis. Next MD appt will be after PT program. Developmental History Developmental History Pt is R handed. 2019 fell on back skating but didn't have any pain. Baby born 08/30/2017. During had L leg pain and posterior shoulder pain. Had an epidural but the injection was not able to fully go in due to the curvature of her spine. Lying down her entire back hurt. By end of she could hardly move. Treatment Goals Patient/Caregiver Goals Pt goal is to be able to sleep better, stay asleep and not have to wake every 2-3 hours. Current Functional Impairments (Reported) Functional Limitations- ADL's Wakes every 2-3 hours in the night. With a new pillow she can now sleep 5 hrs but has difficulty falling to sleep. She has most pain lying down or sitting. Mostly during the day she doesn't notice the pain. She is tired during the day due to lack of sleep. 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 She has an appt with physican to look at R elbow. She feels like bone bruised. The median nerve glide felt made elbow feel worse so stopped. PT-OP-H Neuro Start: 05/18/22 17:26 Freq: Status: Active Protocol: Document 05/21/22 14:44 LRN (Rec: 05/21/22 16:33 LRN [id number]) Sensation Evaluation Gross Sensation Gross Sensation Right LE Impaired Sensation Description Numbness Comments Summary Comments Numbness in L lateral thigh, ~ 2 wide strip between knee and hip. Deep Tendon Reflex & Clonus Assessment Deep Tendon Reflex Bilateral Achilles Deep Tendon Reflex 3+ Normal But Brisk Bilateral Patellar Deep Tendon Reflex 3+ Normal But Brisk PT-OP-J Posture/Palpation/Skin Start: 05/18/22 17:26 Freq: Status: Active Protocol: Document 05/21/22 14:44 LRN (Rec: 05/21/22 16:33 LRN [id number]) Posture Evaluation Position Standing L-Spine Posture Increased Lordosis,Shifted Right Shoulder Posture (L) Elevated Shoulder Subluxation Position (L) Posterior Scapula Posture (R) Rotated Up,(R) Depressed Arm Posture (L) Internally Rotated,(R) Internally Rotated Pelvis Posture (L) Iliac Crest Superior Comments Posture Comments Dowagers Hump, posterior L PSIS. Palpation Assessment Location Obturator Internus Palpation Location Tender Left on external palpation. Palpation Findings Tenderness Posterior L shoulder Palpation Location No tenderness Low Back Palpation Location No tenderness PT-OP-K Range of Motion Start: 05/18/22 17:26 Freq: Status: Active Protocol: Document 07/02/22 14:37 LRN (Rec: 07/02/22 15:18 LRN [id number]) Hip Goniometric Range of Motion Hip Right Passive Testing Position Sitting Internal Rotation 45 External Rotation 55 Comments Sitting hip IR is ~45 deg's Left Passive Internal Rotation 50 External Rotation 60 PT-OP-L Special Tests Start: 05/18/22 17:26 Freq: Status: Active Protocol: Document 05/28/22 14:40 LRN (Rec: 05/28/22 15:38 LRN [id number]) Special Tests Cervical Spine Special Tests Traction Test Results Negative Spurling's Test Test Results + for neck pain Comments Pain in L side of neck with head in R SB Foraminal Compression Test Results Negative PT-OP-M Strength Start: 05/18/22 17:26 Freq: Status: Active Protocol: Document 07/02/22 14:37 LRN (Rec: 07/02/22 15:18 LRN [id number]) Hip Strength Hip Manual Muscle Testing Right Flexion (L2) 5 Normal Extension (S1) 5 Normal Abduction 5 Normal Adduction 5 Normal External Rotation 3+ Fair+ Internal Rotation 3 Fair Left Flexion (L2) 5 Normal Extension (S1) 5 Normal Abduction 5 Normal Adduction 5 Normal External Rotation 4 Good Internal Rotation 3 Fair PT-OP-T Assessment and Plan Start: 05/18/22 17:26 Freq: Status: Active Protocol: Document 11/13/22 16:15 LRN (Rec: 11/13/22 16:19 LRN [id number]) Physical Therapy Assessment Goals Three Impairment Decrease pain Impairment L LBP when present is 9/10. L posterior shoulder pain is 5 -9/10. Short Term Goal (STG) Decrease low back and upper back pain to no greater than 6 /10. 06/09/22: Pain rated 5-6/10. STG Duration 06/20/22 (06/09/22: MET GOAL) Senior Care Goal (LTG) Improve symmetry of hip mobility compared to initial measurements to decrease pain, with pt able to sleep better, stay asleep and not have to wake every 2-3 hours (sleep >5 hours). 07/02/22: Sleeping 5-6 hrs/ night LTG Duration 09/19/22 (07/02/22: Sleep hours, MET GOAL) Two Impairment L sided weakness Impairment L hip strength is generally 3/ 5 except ER is 5/5; R hip is 5 /5 except AD/ER/IR is 3/5. Core weakness - pt not able to maintain core stability with hip strength testing. Short Term Goal (STG) Pt will improve L hip strength & R hip AD/ER/IR to 4/5. 06/04/22: added supine resisted clamshell. 07/02/22: Hip strength is generally 5/5 except ER is 3+/ 5 right, 4/5 left; IR is 3/5 bilaterally. 07/10/22: reviewed TA SLR. STG Duration 07/03/22 (11/13/22: NOT MET GOAL) Senior Care Goal (LTG) Pt will improve L hip and core strength to 4+ to 5/5 to decrease onset of L body sided pain to no greater than 3/5. 06/26/22: added core UE retro press, wall posture. 07/02/22: pt reported no pain , weakness of chika hip rotators . LTG Duration 09/19/22 (07/02/22 progressing, 11/13/22: NOT MET GOAL) One Impairment Pt lacks a self care HEP. Short Term Goal (STG) Pt will be educated in proper sit, stand and nighttime posturing. (05/28/22: pT EDUCATED IN Posture training for sit, stand and sleeping). STG Duration 05/29/22 (05/28/22: MET GOAL). Distribution Sales Representative Goal (LTG) Pt will be educated in a self care HEP. 06/04/22: continued sidesleeping use pillows included under lat scap/ between arms, better response, UT/LS stretches, supine resisted clamshell, STMs to neck/scap MWM. 06/26/22: reviewed pillow positioning, self STMs and rotation HEP. Added median nerve glide, scalened stretch, core posture press supine, wall posture standing help support posture. 07/10/22: added resisted scap retraction TB, R shld IR/ ER, elbow extension CET stretch to HEP. GOod feedback to ice cup cold to CET post manual and ther ex. LTG Duration 09/19/22 (progressin, 11/13/22: NOT MET GOAL) Assessment Summary Assessment Pt was last seen 07/10/22 by Francie Ma PTA. The pt did not show for her next 2 visits. The pt did not call back to reschedule. It has been over 2 months and her plan of care has ; therefore the pt will need a new referral to return to physical therapy. The pt is being discharged due to lack of attendance. Some goals were met. Physical Therapy Plan Discharge Physical Therapy Discharge Reasons No Longer Attending PT Discharge Comments Thank you for your referral.
== END 2022-11-16 09:51 | disposition home or self-care (01) ==
LOC: PHYS 14:30
PROVIDERS: Family Provider Family Medicine; PCP Family Medicine; Referring Provider Family Medicine; Visit Provider Family Medicine
DX: M54.42 Lumbago with sciatica, left side (principal); M62.81 Muscle weakness (generalized); M25.659 Stiffness of unspecified hip, not elsewhere classified; M54.15 Radiculopathy, thoracolumbar region
CPT/HCPCS: 97110; 97140; 97162; 97535

== ENCOUNTER 2022-07-28 10:24 | Emergency (ER) | payer OTHER, MEDICAID, SELFPAY ==
[2022-07-28 10:26] VITALS: BP 119/81; PULSE 85; RESP 14; TEMP 36.3; O2SAT 98
--- NOTE | 2022-07-28 11:52 | ED_ITS ---
HPI - Nausea/Vomiting/Diarrhea General Chief complaint: Nausea/Vomiting/Diarrhea Stated complaint: vomiting since [place] Time Seen by Provider: 07/28/22 11:15 Source: patient and EMS Mode of arrival: EMS Limitations: no limitations History of Present Illness HPI Narrative: 37-year-old otherwise healthy female is here for evaluation of less than 12 hours of nausea and vomiting and also having diarrhea. Having some abdominal cramping that is related to the vomiting. No urinary symptoms. No blood in her stool. She did recently travel to [place] and ate out during that time but no other individuals are sick. She feels much better after receiving Zofran by paramedics. Related Data Home Medications Medication Instructions Recorded Confirmed albuterol sulfate 90 mcg/actuation 2 puff inhalation TID PRN Wheezing 07/28/22 07/28/22 aerosol inhaler gabapentin 800 mg tablet 800 mg PO QID seizure 07/28/22 07/28/22 Previous Rx's Medication Instructions Recorded fluticasone propionate 44 1 inhalation inhalation BID #10.6 04/02/18 mcg/actuation HFA aerosol inhaler grams (Flovent HFA) ondansetron 4 mg disintegrating 4 mg PO Q6H PRN nausea and 07/28/22 tablet vomiting #14 tabs Allergies Allergy/AdvReac Type Severity Reaction Status Date / Time Opioids - Morphine Analogues AdvReac Verified 07/28/22 10:31 Review of Systems Constitutional Constitutional: Reports system reviewed and no additional complaints, except as documented Gastrointestinal Gastrointestinal: Reports system reviewed and no additional complaints, except as documented Genitourinary Genitourinary: Reports system reviewed and no additional complaints, except as documented Integumentary/Breasts Skin/Breast: Reports system reviewed and no additional complaints, except as documented Hematologic/Lymphatic On Anticoagulants: No Patient History Medical History (Updated 07/28/22 @ 11:59 by Johnnie Berrios DO) Asthma H/O ulcer disease POTS (postural orthostatic tachycardia syndrome) Surgical History Status post appendectomy Status post cholecystectomy Social History Smoking Status: Former smoker Smoking Status: Former smoker alcohol intake frequency: holidays/special occasions only Substance Use Type: marijuana Exam Initial Vital Signs Initial Vital Signs: Vital Signs Temperature 97.4 F L 07/28/22 10:26 Pulse Rate 85 07/28/22 10:26 Respiratory Rate 14 07/28/22 10:26 Blood Pressure 119/81 07/28/22 10:26 Pulse Oximetry 98 07/28/22 10:26 Oxygen Delivery Method 07/28/22 10:26 Resp Effort & Inspection: normal respiratory effort Auscultation: clear to auscultation bilaterally Cardio Rate: regular rate Rhythm: regular rhythm GI Inspection: normal to inspection Palpation: soft, No firm and No tender Course Vital Signs Vital signs: Vital Signs - 8 hr 07/28/22 10:26 Temperature 97.4 F L Pulse Rate 85 Respiratory Rate 14 Blood Pressure 119/81 Pulse Oximetry 98 Oxygen Delivery Method Room Air MDM - Nausea/Vomiting/Diarrhea Lab Data Labs: Point of Care Testing Test Results Negative Urine Dip Bedside Urine Glucose Negative Bedside Urine Bilirubin - Negative Bedside Urine Ketone - Negative Urine Specific [place] 1.015 Bedside Urine Occult Blood +++ Bedside Urine pH 5 Bedside Urine Protein - Negative Bedside Urine Urobilinogen - Negative Bedside Urine Nitrite - Negative Bedside Urine Leukocytes - Negative Esterase MDM Narrative Medical decision making narrative: Benign exam. Is tolerating oral intake after the Zofran. No indication for labs. No indication for radiologic studies. Was sent home with Zofran. She was given return precautions. She expressed understanding agreement. Discharge Plan Departure Patient Disposition: Home Clinical Impression: Vomiting and diarrhea Instructions: DI for Vomiting -- Adult Activity Restrictions/Additional Instructions: The prescription for nausea medication was sent to the pharmacy of your choice. Please start taking as directed. Recommend a bland diet for the next couple days. Be sure you are staying hydrated. Expect some continued diarrhea but this should improve. Return to the emergency department for any new symptoms. Prescriptions: New ondansetron 4 mg tablet,disintegrating 4 mg PO Q6H PRN (Reason: nausea and vomiting) Qty: 14 0RF No Action fluticasone propionate [Flovent HFA] 44 mcg/actuation HFA aerosol inhaler 1 inhalation INHALATION BID Qty: 10.6 0RF gabapentin 800 mg tablet 800 mg PO QID albuterol sulfate 90 mcg/actuation HFA aerosol inhaler 2 puff INHALATION TID PRN (Reason: Wheezing) Referrals: Lashae Lin MD [Primary Care Provider] -
[2022-07-28 12:26] VITALS: BP 114/70; PULSE 95; TEMP 36.6; O2SAT 99
== END 2022-07-28 12:28 | disposition home or self-care (01) ==
PROVIDERS: Emergency Provider Emergency Medicine; Family Provider Family Medicine; PCP Family Medicine
DX: R11.2 Nausea with vomiting, unspecified (principal); R19.7 Diarrhea, unspecified
CPT/HCPCS: 81003; 81025; 99282

== ENCOUNTER 2024-02-26 19:09 | Emergency (ER) | payer OTHER, MEDICAID, SELFPAY ==
[2024-02-26 19:13] VITALS: BP 107/69; PULSE 140; RESP 18; TEMP 37.1; O2SAT 99; BMI 20.1
--- NOTE | 2024-02-26 19:53 | ED_ITS ---
HPI - Arrhythmia/Palpitations General Chief Complaint: Arrhythmia/Palpitations Stated Complaint: HR fast has heart condition Time Seen by Provider: 02/26/24 19:31 Source: patient Mode of arrival: Ambulatory History of Present Illness HPI narrative: 38-year old female with reported history of POTS presents by private vehicle from home for elevated heart rate. Patient states that she overheated today and her heart rate elevated. She states that when this happens she was usually able to get it under control by drinking Pedialyte, but despite drinking lots of Pedialyte her heart rate has remained elevated. She states that when she gets like this she needs IV fluids. Also reports anxiety. Has been given hydroxyzine by her primary care doctor, but she does not feel that this is very effective. Related Data Home Medications Medication Instructions Recorded Confirmed albuterol sulfate 90 mcg/actuation 2 puff inhalation TID PRN Wheezing 07/28/22 07/28/22 aerosol inhaler gabapentin 800 mg tablet 800 mg PO QID seizure 07/28/22 07/28/22 Previous Rx's Medication Instructions Recorded fluticasone propionate 44 1 inhalation inhalation BID #10.6 04/02/18 mcg/actuation HFA aerosol inhaler grams (Flovent HFA) ondansetron 4 mg disintegrating 4 mg PO Q6H PRN nausea and 07/28/22 tablet vomiting #14 tabs Allergies Allergy/AdvReac Type Severity Reaction Status Date / Time Opioids - Morphine Analogues AdvReac Verified 07/28/22 10:31 Patient History Medical History H/O ulcer disease Asthma POTS (postural orthostatic tachycardia syndrome) Surgical History Status post appendectomy Status post cholecystectomy Social History Smoking Status: Former smoker Smoking Status: Former smoker alcohol intake frequency: holidays/special occasions only Substance Use Type: marijuana Exam Initial Vital Signs Initial Vital Signs: Vital Signs Temperature 98.7 F 02/26/24 19:13 Pulse Rate 140 H 02/26/24 19:13 Respiratory Rate 18 02/26/24 19:13 Blood Pressure 107/69 02/26/24 19:13 Pulse Oximetry 99 02/26/24 19:13 Oxygen Delivery Method Room Air 02/26/24 19:13 Const: Awake, alert, no acute distress, nontoxic appearing Cardiac: Tachycardia, regular rhythm RESP: unlabored, clear bilaterally, no wheezing Skin: Warm, Dry, intact, no rashes Neuro: AO x3, CN II-XII grossly intact, moves all extremities Course Orders Ordered: Discontinued Medications Sodium Chloride (Normal Saline 0.9%) 1,000 mls @ 1,000 mls/hr IV BOLUS ONE Stop: 02/26/24 20:52 Last Admin: 02/26/24 20:09 Dose: 1,000 mls/hr Documented By: KADEN Propranolol HCl (Propranolol 10 Mg Tablet) 20 mg PO NOW ONE Stop: 02/26/24 19:54 Last Admin: 02/26/24 20:09 Dose: 20 mg Documented By: KADEN Vital Signs Vital signs: Vital Signs - 8 hr 02/26/24 19:13 Temperature 98.7 F Pulse Rate 140 H Respiratory Rate 18 Blood Pressure 107/69 Pulse Oximetry 99 Oxygen Delivery Method Room Air MDM - Arrhythmia/Palpitations Differential Diagnosis Differential diagnosis: Likely palpitations, anxiety and sinus tachycardia MDM Narrative Medical decision making narrative: Well-appearing patient with slightly elevated heart rate. Triage vitals note heart rate of 140 beats per minute, however in the exam room patient's heart rate is between 105-115 beats per minute. Patient in no acute distress otherwise. Patient was given dose of propranolol for anxiety and a L of IV flu ids with improvement in heart rate to 80 beats per minute. Patient counseled to follow up with her primary care doctor for any additional changes to her anxiety medication regimen. Discharge Plan Departure Patient Disposition: Home Clinical Impression: Sinus tachycardia Instructions: DI for Tachycardia Activity Restrictions/Additional Instructions: Make sure to stay hydrated and drink plenty of fluids. Follow up with the primary care doctor for adjustment to your anxiety medications. Prescriptions: No Action fluticasone propionate [Flovent HFA] 44 mcg/actuation HFA aerosol inhaler 1 inhalation INHALATION BID Qty: 10.6 0RF gabapentin 800 mg tablet 800 mg PO QID albuterol sulfate 90 mcg/actuation HFA aerosol inhaler 2 puff INHALATION TID PRN (Reason: Wheezing) ondansetron 4 mg tablet,disintegrating 4 mg PO Q6H PRN (Reason: nausea and vomiting) Qty: 14 0RF Referrals: Riley,Lashae M, MD [Primary Care Provider] - Stand Alone Forms: Patient Portal/API
[2024-02-26] MEDS: SODIUM CHLORIDE 0.9% 1,000 ML 1000 ML IV (20:09)
[2024-02-26] MEDS: PROPRANOLOL 10 MG TABLET 20 MG PO (20:09)
== END 2024-02-26 21:49 | disposition home or self-care (01) ==
PROVIDERS: Emergency Provider Emergency Medicine; Family Provider Family Medicine; PCP Family Medicine
DX: R00.0 Tachycardia, unspecified (principal)
CPT/HCPCS: 36415; 93005; 93010; 99283; 99284

== ENCOUNTER 2024-11-18 16:20 | Emergency (ER) | payer MEDICAID, SELFPAY ==
[2024-11-18] VITALS (11 sets, daily range): BP systolic 104–152; BP diastolic 58–85; PULSE 97–116; RESP 11–23; TEMP 36.9; O2SAT 95–98; BMI 21.3
--- NOTE | 2024-11-18 16:39 | DI.RAD.S_ITS ---
PROCEDURE: XR CHEST 1V INDICATIONS: Shortness of breath TECHNIQUE: One view of the chest was acquired. COMPARISON: None. FINDINGS: Surgical changes and devices: None. Lungs and pleura: Lungs are clear. No pleural effusions or pneumothorax. Mediastinum: Mediastinal contours appear normal. Heart size is normal. Bones and chest wall: No suspicious bony lesions. Overlying soft tissues appear unremarkable. IMPRESSION: No acute cardiopulmonary abnormality is seen. Approved by: Jorge Lauren M.D. on 11/18/2024 at 16:26
--- NOTE | 2024-11-18 16:43 | EKG_ITS ---
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
[2024-11-18 17:04] LABS: Add Manual Diff / Slide Review NO; Basophils Absolute Auto 100 /uL (0-100); Basophils Percent Auto 1.4 % (0-2); Eosinophils Absolute Auto 100 /uL (0-450); Eosinophils Percent Auto 2.3 % (2-4); Hematocrit 42.4 % (36-46); Hemoglobin 14.6 g/dL (12.0-16.0); Lymphocytes Absolute Auto 1600 /uL (1100-4500); Lymphocytes Percent Auto 39.8 % (25-40); Mean Corpuscular HGB Conc 34.5 % (30-36); Mean Corpuscular Hemoglobin 30.5 PG (26-34); Mean Corpuscular Volume 88.3 fL (80-100); Monocytes Absolute Auto 300 /uL (0-900); Monocytes Percent Auto 7.1 % (3-14); Neutrophils Absolute Auto 2000 /uL (1500-7000); Neutrophils Percent Auto 49.4 % (50-75); Platelet Count 250 X10^3/uL (150-400)
[2024-11-18 17:07] LABS: Prothrombin Time 11.7 SECONDS (9.4-12.5)
[2024-11-18 17:12] LABS: Alanine Aminotransferase 28 IU/L (<35); Albumin 4.8 g/dL (3.5-5.0); Albumin Globulin Ratio 1.5 (1.0-2.8); Alkaline Phosphatase 51 U/L (38-126); Aspartate Aminotransferase 30 IU/L (14-36); BUN Creatinine Ratio 9.2 (6-22); Bilirubin Total 0.6 mg/dL (0.2-1.3); Blood Urea Nitrogen 7 mg/dL (7-17); Calcium 8.9 mg/dL (8.4-10.2); Carbon Dioxide 26 mmol/L (22-32); Chloride 104 mmol/L (98-107); Estimated Glomerular Filt Rate > 60 mL/min (>60); Globulin 3.2 g/dL (1.7-4.1); Glucose 84 mg/dL (70-100); HEMOLYSIS < 15 (0-50); Lactate (Lactic Acid) 0.9 mmol/L (0.7-2.1); Potassium 3.6 mmol/L (3.4-5.1); Sodium 140 mmol/L (137-145)
[2024-11-18] MEDS: ALBUTEROL 2.5 MG/3 ML NEB (ADULT) INH ×2 (17:22→19:38)
[2024-11-18 17:24] LABS: NT-proBNP (BNP-Adult 18+) 474 pg/mL (<125); Troponin I < 0.012 ng/mL (0.01-0.034)
--- NOTE | 2024-11-18 19:15 | ED_ITS ---
HPI - SOB/Dyspnea General Chief Complaint: Shortness of Breath/Dyspnea Stated Complaint: asthma attacks t-2, inhaler isnt helping Time Seen by Provider: 11/18/24 16:47 Source: patient Mode of arrival: Ambulatory Limitations: no limitations History of Present Illness HPI Narrative: 39-year-old female with a history of reported pots disease, with tachycardia on beta-tayla, asthma, comes into the ED from home for evaluation of cough shortness of breath wheezing states that she has been using her albuterol inhaler with mild relief for the past 4-5 days but got worse today. Does state smokes weed through a vape pen. She is also complaining of chronic tooth ache states it has been intermittent in nature for the past 4 years but when she started having her difficulty breathing coughing states that it felt like it got worse. States that she does have a dentist but there is no plans for removal. Patient is speaking full sentences protecting airway no voice changes no stridor no trismus. Patient not complaining of any other symptoms such as headache visual disturbances chest pain fever chills nausea vomiting abdominal pain or any other GI/ symptoms at this time. Related Data Home Medications Medication Instructions Recorded Confirmed albuterol sulfate 90 mcg/actuation 2 puff inhalation TID PRN Wheezing 07/28/22 07/28/22 aerosol inhaler gabapentin 800 mg tablet 800 mg PO QID seizure 07/28/22 07/28/22 Previous Rx's Medication Instructions Recorded fluticasone propionate 44 1 inhalation inhalation BID #10.6 04/02/ mcg/actuation HFA aerosol inhaler grams (Flovent HFA) ondansetron 4 mg disintegrating 4 mg PO Q6H PRN nausea and 07/28/22 tablet vomiting #14 tabs albuterol sulfate 90 mcg/actuation 2 inh inhalation Q4-6H PRN 11/18/24 breath activated powder inhaler shortness of breath or wheezing #1 ea prednisone 20 mg tablet 40 mg (2 x 20 mg) PO DAILY 5 days 11/18/24 #10 tabs Allergies Allergy/AdvReac Type Severity Reaction Status Date / Time Opioids - Morphine Analogues AdvReac Verified 07/28/22 10:31 Review of Systems Review of Systems Narrative: General: Denies fever, chills, weight loss HEENT: Positive left dental pain, Denies headache, eye drainage, eye irritation, head trauma, sore throat, voice change Cardiovascular: Denies any chest pain, palpitations, shortness of breath, tachycardia Respiratory: Positive shortness of breath, cough, wheeze, denies stridor GI/: Denies any abdominal pain, nausea, vomiting, diarrhea, bright red blood per rectum, melanotic stools, urinary frequency, urinary retention, dysuria, hematuria MSK: Denies any joint pain, muscle pains, swelling Skin: Denies any rashes, lesions, discoloration Neuro: Denies any headache, lightheadedness, dizziness, fainting, weakness Psych: Denies SI/HI Patient History Medical History (Updated 11/18/24 @ 19:31 by Deng Eckert DO) H/O ulcer disease Asthma POTS (postural orthostatic tachycardia syndrome) Surgical History Status post appendectomy Status post cholecystectomy Social History Smoking Status: Current every day smoker Smoking Status: Current every day smoker tobacco type: vaping alcohol intake frequency: holidays/special occasions only Exam Narrative Exam Narrative: General: Cooperative, comfortable, well-developed, not in acute distress HEENT: Normocephalic, atraumatic, PERRLA, normal sclera, eyelids normal, posterior oropharynx is clear without any signs of obstruction no voice changes no stridor no trismus there is no dental caries dental fractures Neck: Active full range of motion, atraumatic Chest: Normal to inspection, negative crepitus, no overlying erythema ecchymosis Respiratory: Very minimal expiratory wheezes to the posterior lung [place], Normal respiratory effort, not in acute respiratory distress, clear to auscultation bilaterally negative cough, tachypnea, rhonchi, rales Cardiology: Regular rate rhythm negative gallop, murmur, rubs GI/: Normal to inspection, soft, nonrigid, no tenderness to palpation, exam deferred MSK: Full range of active range of motion of all 4 extremities, atraumatic Skin: No rashes lesions noted Neuro: Alert awake oriented x3, moves all 4 extremities spontaneously, cranial nerves intact, able to answer all questions appropriately follows commands appropriately Psych: Cooperative, negative suicidal or homicidal ideations Initial Vital Signs Initial Vital Signs: Vital Signs Temperature 98.5 F 11/18/24 16:27 Pulse Rate 116 H 11/18/24 16:27 Respiratory Rate 22 11/18/24 16:27 Blood Pressure 106/61 11/18/24 16:27 Pulse Oximetry 98 11/18/24 16:27 Oxygen Delivery Method Room Air 11/18/24 16:27 Course Orders Ordered: ED Orders 11/18/24 16:39 XR chest 1V Stat EKG-12 Lead Stat Measure peak expiratory flow ONCE RT Consult Eval and Treat NOW 11/18/24 16:50 Complete Blood Count AUTO DIFF Stat Comprehensive Metabolic Panel Stat Lactate (Lactic Acid) Stat NT-proBNP (BNP-Adult 18+) Stat Prothrombin Time INR Stat Troponin I Stat Discontinued Medications Albuterol (Albuterol 2.5 Mg/3 Ml Neb (Adult)) 2.5 mg INH NOW ONE Stop: 11/18/24 16:48 Last Admin: 11/18/24 17:22 Dose: 2.5 mg Documented By: [facility] Vital Signs Vital signs: Vital Signs - 8 hr 11/18/24 16:27 11/18/24 16:46 11/18/24 16:48 Temperature 98.5 F Pulse Rate 116 H 114 H 107 H Respiratory Rate 22 23 Blood Pressure 106/61 Pulse Oximetry 98 96 96 Oxygen Delivery Method Room Air 11/18/24 16:48 11/18/24 17:00 11/18/24 17:00 Temperature Pulse Rate 101 H Respiratory Rate 22 Blood Pressure 135/73 152/64 H Pulse Oximetry 96 Oxygen Delivery Method 11/18/24 17:30 11/18/24 17:42 11/18/24 17:42 Temperature Pulse Rate 101 H 102 H Respiratory Rate 22 22 Blood Pressure 104/71 Pulse Oximetry 96 98 Oxygen Delivery Method Room Air 11/18/24 18:00 11/18/24 18:00 11/18/24 18:30 Temperature Pulse Rate 100 H 97 H Respiratory Rate 21 20 Blood Pressure 112/73 Pulse Oximetry 95 95 Oxygen Delivery Method 11/18/24 18:30 11/18/24 19:00 11/18/24 19:00 Temperature Pulse Rate 107 H Respiratory Rate 11 L Blood Pressure 110/58 L 112/85 Pulse Oximetry 96 Oxygen Delivery Method MDM - SOB/Dyspnea Differential Diagnosis Differential diagnosis: Likely acute exacerbation of chronic obstructive airways disease, congestive heart failure, community acquired pneumonia, asthma with exacerbation and other (Electrolyte abnormality, ACS) Lab Data 11/18/24 16:50 11/18/24 16:50 Labs: Lab Results 11/18/24 Range/Units 16:50 WBC 4.0 L (4.5-11.0) X10^3/uL RBC 4.80 (4.0-5.2) X10^6/uL Hgb 14.6 (12.0-16.0) g/dL Hct 42.4 (36-46) % MCV 88.3 (80-100) fL MCH 30.5 (26-34) PG MCHC 34.5 (30-36) % RDW 13.0 (11.6-14.8) % Plt Count 250 (150-400) X10^3/uL Neut % (Auto) 49.4 L (50-75) % Lymph % (Auto) 39.8 (25-40) % [place] % (Auto) 7.1 (3-14) % Eos % (Auto) 2.3 (2-4) % Baso % (Auto) 1.4 (0-2) % Neut # (Auto) 2000 (4824-3888) /uL Lymph # (Auto) 1600 (3206-0903) /uL [place] # (Auto) 300 (0-900) /uL Eos # (Auto) 100 (0-450) /uL Baso # (Auto) 100 (0-100) /uL PT 11.7 (9.4-12.5) SECONDS INR 1.0 (0.9-1.3) Sodium 140 (137-145) mmol/L Potassium 3.6 (3.4-5.1) mmol/L Chloride 104 (98-107) mmol/L Carbon Dioxide 26 (22-32) mmol/L BUN 7 (7-17) mg/dL Creatinine 0.76 (0.52-1.04) mg/dL Estimated GFR > 60 (>60) mL/min BUN/Creatinine Ratio 9.2 (6-22) Glucose 84 (70-100) mg/dL Lactate 0.9 (0.7-2.1) mmol/L Calcium 8.9 (8.4-10.2) mg/dL Total Bilirubin 0.6 (0.2-1.3) mg/dL AST 30 (14-36) IU/L ALT 28 (<35) IU/L Alkaline Phosphatase 51 (38-126) U/L Troponin I < 0.012 (0.01-0.034) ng/mL NT-Pro-B Natriuret Pep 474 H (<125) pg/mL Total Protein 8.0 (6.3-8.2) g/dL Albumin 4.8 (3.5-5.0) g/dL Globulin 3.2 (1.7-4.1) g/dL Albumin/Globulin Ratio 1.5 (1.0-2.8) Imaging Data Chest x-ray: Radiologist's Impression: [address] [address] XRay Report Signed Patient: Marcelina Montgomery MR#: [id number] : 1985 Acct:[id number] Age/Sex: 39 / F Date of Service: 11/18/24 Loc: ED Accession Number: [id number] Procedure: XR chest 1V Ordering Provider: Alex Myles MD PROCEDURE: XR CHEST 1V INDICATIONS: Shortness of breath TECHNIQUE: One view of the chest was acquired. COMPARISON: None. FINDINGS: Surgical changes and devices: None. Lungs and pleura: Lungs are clear. No pleural effusions or pneumothorax. Mediastinum: Mediastinal contours appear normal. Heart size is normal. Bones and chest wall: No suspicious bony lesions. Overlying soft tissues appear unremarkable. IMPRESSION: No acute cardiopulmonary abnormality is seen. ECG Data Interpretation: EKG interpreted ED physician sinus tachycardia 111 beats per minute normal axis QTC [address] changes no STEMI MDM Narrative Medical decision making narrative: 39-year-old female with a history of POTS sinus tachycardia on beta-tayla, asthma, daily vape smoker presents to the ED from home for evaluation of persistent cough shortness of breath. States that she has been using her albuterol inhaler but did not have a much relief therefore decided come to ED for evaluation treatment. Patient also complaining of chronic tooth ache states it has been ongoing for 4 years, she denies any difficulty swallowing breathing on exam no signs of dental caries no signs of abscess, patient is speaking full sentences protecting airway no voice changes no stridor no trismus, patient had improved symptoms after Solu-Medrol and 2 albuterol inhaler treatments. Patient not requiring any supplemental oxygen she is well-appearing nontoxic EKG nonischemic in nature troponin negative despite patient not complaining of any chest pain. Patient's symptoms more likely mild asthma exacerbation she will be sent home with symptomatic relief she was given strict return precautions she verbalized understanding of this and agrees to being discharged home with outpatient follow up Discharge Plan Departure Patient Disposition: Home Clinical Impression: Asthma with exacerbation Instructions: DI for Asthma -- Adult Activity Restrictions/Additional Instructions: Please follow up with your primary care doctor Please read the discharge instructions sheet carefully and bring all papers to all doctor follow-up visits, as it may contain information that your doctor may want to see. Disease processes change and evolve, if your symptoms worsen or if you develop any new symptoms that are concerning to you please return for evaluation. Your evaluation today does not show any evidence of any life- threatening/serious illnesses requiring admission to the hospital or surgery. Please follow-up with your doctor for re-evaluation in approximately 1 day. Seek immediate medical attention for any worrisome symptoms. *If you do not have a primary care provider please contact the [facility] Resource line at [phone]. They will ask some questions about your medical history and help get you set up with a doctor in the community. Prescriptions: New prednisone 20 mg tablet 40 mg PO DAILY 5 Days Qty: 10 0RF albuterol sulfate 90 mcg/actuation aerosol powdr breath activated 2 inh inhalation Q4-6H PRN (Reason: shortness of breath or wheezing) Qty: 1 2RF No Action fluticasone propionate [Flovent HFA] 44 mcg/actuation HFA aerosol inhaler 1 inhalation INHALATION BID Qty: 10.6 0RF gabapentin 800 mg tablet 800 mg PO QID albuterol sulfate 90 mcg/actuation HFA aerosol inhaler 2 puff INHALATION TID PRN (Reason: Wheezing) ondansetron 4 mg tablet,disintegrating 4 mg PO Q6H PRN (Reason: nausea and vomiting) Qty: 14 0RF Referrals: Lashae Lin MD [Primary Care Provider] - Stand Alone Forms: Patient Portal/API/Survey
[2024-11-18] MEDS: methylPREDNISolone 125 MG/2 ML VIAL IV (19:40)
== END 2024-11-18 19:59 | disposition home or self-care (01) ==
PROVIDERS: Emergency Medicine; Emergency Provider Student in an Organized Health Care Education/Training Program; Family Provider Family Medicine; PCP Family Medicine
DX: J45.901 Unspecified asthma with (acute) exacerbation (principal); R00.0 Tachycardia, unspecified; F17.290 Nicotine dependence, other tobacco product, uncomplicated; K08.89 Other specified disorders of teeth and supporting structures; G90.A Postural orthostatic tachycardia syndrome [POTS]
CPT/HCPCS: 36415; 71045; 80053; 83605; 83880; 84484; 85025; 85610; 93005; 94640; 96374; 99284; J2919; J7613